=== PATIENT | female | born 1995 | race Caucasian/White ===

== ENCOUNTER 2021-07-27 04:00 | Inpatient (IN) | payer BC, SELFPAY ==
[2021-07-26 22:51] VITALS: TEMP 36.8
[2021-07-26 22:56] VITALS: BP 137/83; PULSE 100
[2021-07-26 23:29] VITALS: BMI 29.4
[2021-07-26 23:42] LABS: Mucous, Urine 0 SEEN /hpf (<or=2+); Red Blood Cells-Urine 0 SEEN /hpf (0-5); Squamous Epithelial Cells - UA 0 SEEN /hpf (5-10)
[2021-07-26] MEDS: Betamethasone/Betamethasone 30 MG/5 ML Vial 12 MG IM (23:43)
[2021-07-26] MEDS: Ringers, Lactated 1,000 ML IV.SOLN. 1000 ML IV (23:43)
[2021-07-26 23:46] LABS: Color, Urine Yellow (Yellow); Glucose, Dipstick Normal (Normal); Ketone-Dipstick 5 mg/dl (Negative); Leukocyte Esterase-Dipstick Negative /ul (Negative); Nitrite-Dipstick Negative (Negative); Occult Blood-Urine Negative /ul (Negative); Protein-Dipstick Negative (Negative); Urine Bilirubin Dipstick Negative (Negative); Urine Clarity Clear (Clear); Urine Urobilinogen Normal (Normal)
[2021-07-26 23:59] LABS: Bacteria 1+ /hpf (None Seen); White Blood Cells 0-5 SEEN /hpf (0-5)
[2021-07-27] VITALS (18 sets, daily range): BP systolic 110–138; BP diastolic 58–89; PULSE 90–126; RESP 14–16; TEMP 36.4–37.1; O2SAT 97–99
[2021-07-27 00:10] LABS: ROM Internal Control Test YES-OK TO RESULT pt. (Internal QC); ROM Patient Test Negative (Negative)
[2021-07-27 01:18] LABS: Group B Strep DNA By PCR Negative (Negative); Internal Control PASS; Probe Check PASS; Specimen Processing Control PASS
--- NOTE | 2021-07-27 05:38 | PCM.HP.OB ---
HPI - General General Date of Admission: 07/27/21 HPI Narrative JOE JIANG, is a 26 F who presents at 34w1d with contractions. Started having pelvic pressure after work and then cramping. Contractions then started upon arrival to hospital. Cervical change and decision for admission. 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 Maternal Data Information CAMMIE Calculator Estimated Delivery Date Method Current WG Current Estimate 09/06/21 Manual 34w 1d PFSH PFSH Medical History (Updated 07/27/21 @ 05:55 by Pao Goss CNM) COVID-19 affecting in second trimester Willa's disease Home Medications levothyroxine [Synthroid] 125 mcg PO DAILY 07/26/21 [History Last Taken 07/26/21] loratadine [Claritin] 10 mg PO DAILY PRN 07/26/21 [History Last Taken 07/25/21] magnesium 250 mg PO DAILY 07/26/21 [History Last Taken 07/25/21] [id number] [] 1 tab PO DAILY 07/26/21 [History Last Taken 07/25/21] Allergy/AdvReac Type Severity Reaction Status Date / Time amoxicillin Allergy Hives Verified 07/26/21 23:00 latex Allergy Hives Verified 07/26/21 23:00 minocycline Allergy Hives Verified 07/26/21 23:00 Surgical History (Updated 07/26/21 @ 23:51 by Rachele Mcrae) [place] teeth removed Social History Smoking Status: Never smoker History Elective abortions Hx Para 0 Spontaneous abortions Hx # Term Pregnancies Ectopic pregnancies Hx # Pregnancies Multiple births # of living children NST FHR Rate Baby A Baseline: 145 Variability:: Moderate Accelerations:: 15 x 15 Decelerations:: None FHR Category:: Category I Uterine Activity:: Every 2-3 moderate ROS Constitutional Constitutional: Reports systems reviewed and no addt'l complaints, except as documented; Denies headache(s) Eyes Eyes: Denies acute decrease in peripheral vision, blurry vision or change in vision ENT HEENT: Reports systems reviewed and no addt'l complaints, except as documented Cardiovascular Cardiovascular: Denies chest pain or dizziness Respiratory/Chest Respiratory/Chest: Denies cough, dyspnea, dyspnea on exertion, shortness of breath at rest or shortness of breath with exertion Gastrointestinal Gastrointestinal: Denies abdominal pain, diarrhea, nausea or vomiting Genitourinary Genitourinary: Denies abdominal discomfort or movement Musculoskeletal Musculoskeletal: Denies limited range of motion Integumentary Integumentary: Reports systems reviewed and no addt'l complaints, except as documented Neurologic Neurologic: Reports systems reviewed and no addt'l complaints, except as documented Psychiatric Psychiatric: Reports systems reviewed and no addt'l complaints, except as documented Endocrine Endocrinology: Reports systems reviewed and no addt'l complaints, except as documented Hematologic/Lymphatic Hematologic/Lymphatic: Reports systems reviewed and no addt'l complaints, except as documented Allergic/Immunologic Allergic/Immunologic: Reports systems reviewed and no addt'l complaints, except as documented Vital Signs Vital Signs Vital Signs: 07/26/21 22:51 07/26/21 22:56 07/27/21 00:03 Temperature 98.3 F 97.6 F L Temperature Source Temporal Temporal Pulse Rate 100 93 Blood Pressure 137/83 H 132/85 H BP Systolic 137 132 BP Diastolic 83 85 Pulse Ox 07/27/21 04:52 Temperature Temperature Source Pulse Rate 120 H Blood Pressure 128/89 H BP Systolic 128 BP Diastolic 89 Pulse Ox 97 Weight Weight: 166 lb 2 oz Body Mass Index (BMI) 29.4 Physical Exam Const alert and oriented x3 General Appearance: cooperative Orientation / Consciousness: awake, oriented to person, oriented to place and oriented to time Exam Limitations: no limitations HEENT normocephalic Head and Scalp: normal to inspection, normocephalic and atraumatic Face and Sinus: normal facial exam Eyes General Eye: normal appearance of both eyes Neck full ROM Chest Chest: symmetrical chest wall rise Resp normal respiratory effort and normal air movement Auscultation: clear to auscultation bilaterally Cardio regular rate, regular rhythm, S1 normal heart sound, S2 normal heart sound, no murmurs, no rub, no gallops and no clicks GI normal to inspection, nondistended, normoactive bowel sounds and non-tender appearance of the vagina normal Bladder / Kidney Exam: no CVA tenderness Manual OB Exam: presentation, dilated 4cm, effaced 80%, station -1 and other Back/Spine normal ROM Extremity normal to inspection and full ROM Skin no rashes or lesions noted Neuro oriented x3, CN's II-XII intact bilaterally and moves all extremities Sensorium / Orientation: awake, alert and oriented to person Motor Exam: clonus absent Deep Tendon Reflexes: Rt Patellar (L4): 2+ and Lt Patellar (L4): 2+ Labs Labs Labs: Blood Type O POSITIVE Antibody Screen NEGATIVE Hct Pending Hgb Pending Group B Strep DNA Negative (Negative) RPR negative HIV negative HBsAG negative Hep C negative O positive GC/CT negative Assessment & Plan (1) Active labor: (2) 34 weeks gestation of : (3) 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 Will treat with Vancomycin 4) Continuous EFM 5) Pain management upon request 6) Celestone 12mg IM x 1 7) collaborative physician and notified of patient status and referral of care due to labor.
--- NOTE | 2021-07-27 05:38 | PCM.RX.CS ---
Consult Pharmacy has been consulted to manage selected antiobiotic: Vancomycin Type of Consult: New start Microbiology: Microbiology 07/27/21 04:50 Nasal Secretion SARS-CoV-2 Antigen (Rapid) - Final Goal Trough: 10-15 mcg/mL Pharmacy Plan for Drug Dosing: Pharmacy Service will continue to monitor and adjust dosing as required. Medications Vancomycin HCl 1,500 mg/ (Sodium Chloride) 530 mls @ 250 mls/hr IV Q8H JANIA Follow-Up Labs: Trough Vancomycin Labs to be done on [date and time ordered]: 07/28 @ 0500
[2021-07-27] MEDS: Lactated Ringers 1,000 ML 50 ML IV (05:55)
[2021-07-27 06:06] LABS: Absolute Lymphocyte Count 2.44 X10^3/uL (0.83-4.51); Absolute Neutrophil Count 11.5 X10^3/uL (2.0-7.7); Basophil# 0.06 X10^3/uL; Basophil% 0.4 % (0-1); Eosinophil# 0.11 X10^3/uL; Eosinophils% 0.7 % (0-5); Hematocrit 34.8 % (37-47); Hemoglobin 11.7 g/dL (12.0-15.0); Lymphocyte # 2.44 X10^3/ul (0.83-4.51); Lymphocyte % 15.7 % (19-41); Mean Corp Hgb Conc 33.6 g/dL (32-36); Mean Corpuscular Hgb 30.7 pg (27.0-32.0); Mean Corpuscular Volume 91.3 fL (81-99); Mean Platelet Vol. 10.9 fl (6.2-12.0); Monocyte# 1.13 X10^3/uL; Monocyte% 7.3 % (0-10); NRBC Flagged by Analyzer 0 % (0-5); Neutrophil # 11.52 X10^3/uL (2.7-7.7); Neutrophil % 73.8 % (47-70); Platelet Count 273 K/mm3 (150-450); RBC Distribution Width SD 43.2 fl (35.1-43.9); Red Blood Count 3.81 M/mm3 (4.2-5.4); White Blood Count 15.6 K/mm3 (4.4-11.0)
[2021-07-27] MEDS: Levothyroxine 125 MCG Tablet PO (06:20)
--- NOTE | 2021-07-27 08:48 | PCM.PN.BLA ---
Progress Note Evaluated at bedside. 9 cm/100/+2. Anticipate normal spontaneous vaginal delivery. Nursery team and pediatrics notified.
[2021-07-27] MEDS: Oxytocin 30 units/NS 500 ml 30 UNITS/500 ML IV.SOLN 334 UNITS IV (09:50)
--- NOTE | 2021-07-27 10:01 | OP.PCM_ITS ---
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: (2) 34 weeks gestation of : (3) Vaginal delivery: (4) delivery: Maternal Data Information CAMMIE Calculator Estimated Delivery Date Method Current WG Current Estimate 09/06/21 Manual 34w 1d Vaginal Delivery Maternal Presentation Maternal Presentation: Active Labor Maternal Presentation: labor 34 weeks Operative Information Date of Procedure: 07/27/21 Pre-Operative Diagnosis: labor Post-Operative Diagnosis: same, live male infant Surgery / Procedure Performed: Spontaneous Vaginal Delivery Type of Anesthesia: None Estimated Blood Loss: 200 Time of Delivery: 09:42 Findings Description of Procedure: Since without epidural or other pain management. Patient progressed to fully dilated. Financial Management Consultant and respiratory were in the room for delivery. Patient with good maternal pushing efforts delivered the infant's head followed by the anterior shoulder with gentle downward traction followed by the rest the 's body. The was placed on the mother's chest initially. The infant was not vigorous at that time so cord was clamped and cut. The infant was then handed to the awaiting nursery and respiratory team. Resuscitation was performed. At this time the placenta delivered spontaneously without complication and intact. Second-degree perineal laceration was appreciated. 1% lidocaine was injected and the laceration was repaired using 2-0 Vicryl and a 3-0 repeat on a single needle. Patient tolerated the procedure well. Presentation: Vertex Amniotic Fluid Description: Clear Placental Delivery Description: Spontaneous Placenta Disposition: [facility] Specimen(s) Removed: placenta Cord Vessel Description: 3 Vessels Cord Entanglement: None Cord Gases: ABG and VBG A Gender: Male (1 minute): 1 (5 minute): 7 ( 10min 8) Delayed Cord Clamping: No Post Vaginal Delivery Medications Given After Delivery: IV Pitocin Episiotomy Description: None Laceration: Perineal Extension/lac and 2nd degree Complication Complications: None
[2021-07-27] MEDS: Acetaminophen 500 MG Tablet 1000 MG PO ×2 (11:16→21:03)
[2021-07-27] MEDS: Ibuprofen 600 MG Tablet PO (16:12)
[2021-07-28] VITALS: BP 119/79; PULSE 96; RESP 16; TEMP 36.8; O2SAT 99
[2021-07-28] MEDS: Ibuprofen 600 MG Tablet PO (00:02)
[2021-07-28 03:54] VITALS: BP 103/78; PULSE 82; RESP 16; TEMP 36.6; O2SAT 97
[2021-07-28] MEDS: Acetaminophen 500 MG Tablet 1000 MG PO (03:54)
--- NOTE | 2021-07-28 05:47 | PN_ITS ---
Subjective Subjective Seen at bedside, doing well. Patient reports good pain control. Mild lochia. Breast-feeding/pumping without difficulty. Voiding without difficulty. Objective Data Objective Data Vital Signs: Vital Signs Temp Pulse Resp BP Pulse Ox 98 F 82 16 103/78 97 07/28/21 03:54 07/28/21 03:54 07/28/21 03:54 07/28/21 03:54 07/28/21 03:54 Oxygen Delivery Method Room Air Weight: 75.353 kg Body Mass Index (BMI) 29.4 Intake & Output: Intake and Output for Last 24 Hours 07/26/21 07/27/21 07/28/21 23:59 23:59 23:59 Intake Total 1225.83 / 1225.83 Output Total 500 / 500 Balance 725.83 / 725.83 Lab / Micro Data Result Diagrams: 07/27/21 00:00 Labs: Laboratory Results - last 24 hr 07/27/21 00:00: WBC 15.6 H, RBC 3.81 L, Hgb 11.7 L, Hct 34.8 L, MCV 91.3, MCH 30.7, MCHC 33.6, RDW Std Deviation 43.2, RDW Coeff of Deborah 13.0, Plt Count 273, MPV 10.9, Immature Gran % (Auto) 2.100 H, Neut % (Auto) 73.8 H, Lymph % (Auto) 15.7 L, [place] % (Auto) 7.3, Eos % (Auto) 0.7, Baso % (Auto) 0.4, Absolute Neuts (auto) 11.5 H, Absolute Lymphs (auto) 2.44, Nucleated RBC % 0 Micro: Microbiology 07/27/21 04:50 Nasal Secretion SARS-CoV-2 Antigen (Rapid) - Final Physical Exam Const alert and oriented x3 General Appearance: cooperative HEENT normocephalic Neck General: normal visual inspection GI soft to palpation and non-distended GI Narrative: Fundus firm Extremity normal to inspection and no calf tenderness Skin no rashes or lesions noted Neuro oriented x3 and CN's II-XII intact bilaterally Psych mental status grossly normal Assessment & Plan Assessment/Plan (1) delivery: PLAN: PPD#1 , Doing well Routine care pain mgmt ambulation
[2021-07-28] MEDS: Levothyroxine 88 MCG Tablet PO (07:37)
[2021-07-28 07:47] VITALS: BP 119/66; PULSE 78; RESP 16; TEMP 36.5; O2SAT 98
[2021-07-28 13:46] VITALS: BP 117/82; PULSE 91; RESP 16; TEMP 36.6; O2SAT 97
--- NOTE | 2021-07-28 17:00 | PCM.DC.SUM ---
Providers Date of Admission: 07/27/21 Primary Care Physician: Dr. Stephanie Lynn MD Reason For Visit: VAGINAL DELIVERY Diagnosis Discharge Diagnosis (1) delivery: Status: Acute Code(s): O60.10X0 - labor with delivery, unspecified trimester, not applicable or unspecified Medications at Discharge Home Medications levothyroxine [Synthroid] 125 mcg PO DAILY 07/26/21 loratadine [Claritin] 10 mg PO DAILY PRN 07/26/21 magnesium 250 mg PO DAILY 07/26/21 [id number] 1 tab PO DAILY 07/26/21 Hospital Course Summary of Care Provided Hospital Course: 26-year-old 1 para 0 who presented at 36+ weeks gestation was labor. She had a vaginal delivery of a 36-week on 07/27/2021. The was placed in special care nursery. By day #1 the patient was ambulating, urinating tolerating regular diet and desired to be released to hotel status. Weight / BMI Weight Weight: 75.353 kg Body Mass Index (BMI) 29.4 ABG / Lab / Microbiology Data Result Diagrams: 07/27/21 00:00 Microbiology: Microbiology 07/27/21 04:50 Nasal Secretion SARS-CoV-2 Antigen (Rapid) - Final D/C Instructions Discharge Diet: No restrictions May resume sexual activity in: 6 weeks Call your doctor if your incision/area has: Continuous Slow Oozing, Sudden Increased Bleeding, Foul Smelling Discharge and Swelling at the incision site Call your doctor if you observe: Fever of 101 or Higher and Inability to urinate Please Follow Up With: Deepika Lin MD When: Follow up with our office in 1-2 and 6 weeks or as needed. [phone] Meaningful Use Info Meaningful Use Diagnoses (Choose all that apply): None applicable Discharge Plan Admission Admit Date/Time: 07/27/21 04:00 Primary Reason for Your Visit: Vaginal delivery Attending Provider: Isa Donahue Primary Care Provider: Stephanie Lynn Discharge Orders/Prescriptions Prescriptions: Continued levothyroxine [Synthroid] 125 mcg Tablet 125 mcg PO DAILY RF: 0 [id number] 1 mg Tablet 1 tab PO DAILY RF: 0 magnesium 250 mg Tablet 250 mg PO DAILY RF: 0 loratadine [Claritin] 10 mg Tablet 10 mg PO DAILY PRN (Reason: allergies) RF: 0 Referrals / Follow Up: Stephanie Lynn MD [Primary Care Provider] - Disposition Disposition (needs filled in before D/C Order can be placed): Home, Self Care
[2021-07-28 17:52] VITALS: BP 112/83; PULSE 98; RESP 16; TEMP 36.6; O2SAT 98
== END 2021-07-28 18:08 | disposition home or self-care (01) | DRG 807 ==
LOC: WPOUT 04:04 → WP 04:04
PROVIDERS: Advanced Practice Midwife; Admitting Provider Obstetrics & Gynecology; PCP Family Medicine; Visit Provider Obstetrics & Gynecology
DX: O60.14X0 Preterm labor third trimester with preterm delivery third trimester, not applicable or unspecified (principal); Z37.0 Single live birth; E06.3 Autoimmune thyroiditis; O99.284 Endocrine, nutritional and metabolic diseases complicating childbirth; O70.1 Second degree perineal laceration during delivery; Z3A.34 34 weeks gestation of pregnancy; Z79.899 Other long term (current) drug therapy; Z86.16 Personal history of COVID-19
CPT/HCPCS: 59025; 59050; 76815; 81001; 84112; 85025; 86850; 86900; 86901; 87081; 87426; 87653; 99218; J7040; J7120; G0378; J0702

== ENCOUNTER 2023-05-09 02:53 | Inpatient (IN) | payer BC, SELFPAY ==
[2023-05-09] VITALS (91 sets, daily range): BP systolic 107–129; BP diastolic 64–84; PULSE 100–140; RESP 16; TEMP 36.4–37.6; O2SAT 93–99; BMI 30.8
--- OUTSIDE RECORDS SUMMARY | 2023-05-09 00:18 | XMS RPT_ITS | CCD ---
Author Name Unknown Address [address] [place] [address] Organization [facility] Care Team Providers [employer] M[employer] Name Role Phone Stephanie Lynn Unavailable Unavailable Unavailable Unavailable Primary Care Provider Unavailabl e Unavailable Primary Care Provider Unavailabl e Unavailable Primary Care Provider Unavailabl e VEERAMACHANENI, RAVALI Referring Unavailab le VEERAMACHANENI, RAVALI Referring Unavailab le VEERAMACHANENI, RAVALI Referring Unavailab le HASAN, AILEEN Referring Unavailable PLOTTS, GLORIA Attending Unavailable PLOTTS, GLORIA Attending Unavailable PLOTTS, GLORIA Attending Unavailable VEERAMACHANENI, RAVALI Referring Unavailab le PLOTTS, GLORIA Referring Unavailable GOSS, ALEJANDRO Attending Unavailable GOSS, ALEJANDRO Attending Unavailable VEERAMACHANENI, RAVALI Referring Unavailab le GOSS, ALEJANDRO Referring Unavailable GOSS, ALEJANDRO Attending Unavailable GOSS, ALEJANDRO Attending Unavailable GOSS, ALEJANDRO Referring Unavailable GOSS, ALEJANDRO Referring Unavailable MINAJOHANNE Attending Unavailable PLOTTS, GLORIA Referring Unavailable PLOTTS, GLORIA Attending Unavailable WISWELL, JOHANNA Referring Unavailable GOSS, ALEJANDRO Referring Unavailable VEERAMACHANENI, RAVALI Attending Unavailab le PLOTTS, GLORIA Referring Unavailable PLOTTS, GLORIA Referring Unavailable WISWELL, JOHANNA Referring Unavailable WISWELL, JOHANNA Referring Unavailable WISWELL, JOHANNA Attending Unavailable WISWELL, JOHANNA Referring Unavailable WISWELL, JOHANNA Attending Unavailable WISWELL, JOHANNA Referring Unavailable Allergies Allergy Classification Reported Allergen(s) Allergy Type Date of Onset Reaction(s) Facility (20 sources) Amoxicillin; Translations: [Amoxicillin CAPS] Drug Allergy 1 [facility] (2 sources) Doxycycline; Translations: [doxycycline] Drug Allergy -[facility] Work Phone: (4 sources) natural latex rubber; Translations: [LATEX] Allergy to substance (finding) 1 [facility] (20 sources) avocado allergenic extract; Translations: [AVOCADO] Drug Allergy 1 [facility] (20 sources) Banana Extract; Translations: [BANANA] Drug Allergy 1 [facility] (20 sources) Latex Drug Allergy 1 [facility] (20 sources) Minocycline; Translations: [MINOCYCLINE] Drug Allergy 1 Hives [facility] (20 sources) Seasonal allergy; Translations: [SEASONAL ALLERGIES] Propensity to adverse reactions 1 Other: See Comments [facility] (20 sources) Pineapple; Translations: [PINEAPPLE] Propensity to adverse reactions to drug 1 [facility] (2 sources) Amoxicillin; Translations: [AMOXICILLIN] Drug Allergy 1 [facility] Medications Current Medications Medication Drug Class(es) Dates Sig (Normalized) Sig (Original) oseltamivir 75 mg oral capsule (3 sources) Neuraminidase Inhibitor Start: 05-08-2023 End: 05-13-2023 take 1 capsule by mouth twice daily oseltamivir (TAMIFLU) 75 mg capsule Take 1 capsule by mouth two times a day for 5 days. 10 capsule 0 05/08/2023 05/13/2023 Active Completed/Discontinued Medications Medication Drug Class(es) Dates Sig (Normalized) Sig (Original) drospirenone, contraceptive, (SLYND) 4 mg (28) tabet (11 sources) Start: 09-04-2021 End: 10-29-2022 take 1 tablet by mouth once daily drospirenone, contraceptive, (SLYND) 4 mg (28) tabet Take 1 tablet by mouth once daily for 28 days. 30 tablet 11 09/04/2021 10/29/2022 Discontinued Problems Active Problems Problem Classification Problem Date Documented Date Episodic/Chronic Contraceptive and procreative management (2 sources) Oral contraception; Translations: [Encounter for surveillance of contraceptive pills] Episodic Genitourinary symptoms and ill-defined conditions (1 source) Female stress incontinence; Translations: [Stress incontinence (female) (male)] Chronic Immunizations and screening for infectious disease (3 sources) Suspected disease caused by 2019-nCoV; Translations: [Contact with or exposure to other viral diseases] Episodic Menstrual disorders (1 source) Break-through bleeding; Translations: [Excessive and frequent menstruation with irregular cycle] Chronic Other complications of (2 sources) Hypothyroidism in ; Translations: [Endocrine, nutritional and metabolic diseases complicating , first trimester] Episodic Other complications of (2 sources) High risk ; Translations: [Supervision of other high risk pregnancies, second trimester] 01-18-2023 Episodic Other complications of (1 source) Short cervical length in ; Translations: [Cervical shortening, second trimester] 01-31-2023 Episodic Other complications of (5 sources) Excessive growth affecting management of mother; Translations: [Maternal care for excessive growth, third trimester, not applicable or unspecified] Onset: 04-02-2023 04-05-2023 Episodic Other complications of (1 source) Uterine size-date discrepancy, third trimester; Translations: [Uterine size date discrepancy, third trimester] Onset: 04-02-2023 Episodic Other complications of (1 source) Supervision of other high risk pregnancies, second trimester; Translations: [Hx of delivery, currently , second trimester] Onset: 02-07-2023 Episodic Other complications of (1 source) Cervical shortening, second trimester; Translations: [Cervical shortening, second trimester] Onset: 01-31-2023 Episodic Other and delivery including normal (20 sources) Normal ; Translations: [Encounter for supervision of normal first , first trimester] Onset: 02-07-2021 02-07-2021 Episodic Other screening for suspected conditions (not mental disorders or infectious disease) (2 sources) Patient encounter status; Translations: [Encounter for other specified screening] Onset: 04-02-2023 01-11-2023 Episodic Other upper respiratory infections (4 sources) Acute sinusitis; Translations: [Acute sinusitis, unspecified] Episodic Residual codes; unclassified (1 source) Gestation period, 28 weeks; Translations: [28 weeks gestation of ] Episodic Residual codes; unclassified (1 source) Gestation period, 30 weeks; Translations: [30 weeks gestation of ] Episodic Residual codes; unclassified (1 source) Gestation period, 32 weeks; Translations: [32 weeks gestation of ] Episodic Residual codes; unclassified (1 source) Gestation period, 12 weeks; Translations: [12 weeks gestation of ] 11-22-2022 Episodic Residual codes; unclassified (1 source) Gestation period, 18 weeks; Translations: [18 weeks gestation of ] 01-03-2023 Episodic Residual codes; unclassified (2 sources) Gestation period, 19 weeks; Translations: [19 weeks gestation of ] 01-11-2023 Episodic Residual codes; unclassified (1 source) Gestation period, 22 weeks; Translations: [22 weeks gestation of ] 01-31-2023 Episodic Residual codes; unclassified (1 source) Gestation period, 23 weeks; Translations: [23 weeks gestation of ] 02-07-2023 Episodic Residual codes; unclassified (1 source) Gestation period, 35 weeks; Translations: [35 weeks gestation of ] 04-30-2023 Episodic Residual codes; unclassified (1 source) 31 weeks gestation of ; Translations: [31 weeks gestation of ] Onset: 04-02-2023 Episodic Residual codes; unclassified (1 source) 23 weeks gestation of ; Translations: [23 weeks gestation of ] Onset: 02-07-2023 Episodic Residual codes; unclassified (1 source) 22 weeks gestation of ; Translations: [22 weeks gestation of ] Onset: 01-31-2023 Episodic Residual codes; unclassified (1 source) Gestation period, 36 weeks; Translations: [36 weeks gestation of ] 05-07-2023 Episodic Thyroid disorders (20 sources) 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; Translations: [Other specified hypothyroidism] Onset: 07-15-2019 06-12-2021 Chronic Viral infection (2 sources) Viral disease; Translations: [Unspecified viral infection] Episodic Past or Other Problems Problem Classification Problem Date Documented Da te Episodic/Chronic Diabetes mellitus without complication (20 sources) Increased glucose level; Translations: [Other abnormal glucose] Onset: 06-14-2021 06-14-2021 Episodic Other complications of (11 sources) Spotting per vagina in ; Translations: [Spotting complicating , unspecified trimester] Onset: 01-26-2021 01-26-2021 Episodic Other complications of (20 sources) Finding of pattern of ; Translations: [Supervision of other high risk pregnancies, unspecified trimester] Onset: 10-04-2022 10-04-2022 Episodic Other female genital disorders (20 sources) H/O: premature delivery; Translations: [Personal history of pre-term labor] Onset: 09-04-2021 Episodic Other female genital disorders (1 source) Personal history of pre-term labor; Translations: [History of delivery] Onset: 01-24-2023 Episodic Residual codes; unclassified (19 sources) Down's child in family; Translations: [Family history of other congenital malformations, deformations and chromosomal abnormalities] Onset: 01-26-2021 01-26-2021 Episodic Residual codes; unclassified (20 sources) FH: Chromosomal anomaly; Translations: [Family history of other congenital malformations, deformations and chromosomal abnormalities] Onset: 01-26-2021 01-26-2021 Episodic Residual codes; unclassified (1 source) 19 weeks gestation of ; Translations: [19 weeks gestation of ] Onset: 01-17-2023 Episodic Residual codes; unclassified (1 source) 16 weeks gestation of ; Translations: [16 weeks gestation of ] Onset: 01-11-2023 Episodic Residual codes; unclassified (1 source) 15 weeks gestation of ; Translations: [15 weeks gestation of ] Onset: 12-14-2022 Episodic Results Test Name Value Interpretation Reference Range Facil ity Vital Signs Date Time Vital Sign Value Performing Clinician Dwayne spann 05-07-2023 14:47-0500 Body weight 79.83 kg Alejandro CARRINGTON Work Phone: [facility] 05-07-2023 14:47-0500 Diastolic blood pressure 72 mm[Hg] Alejandro Goss APRN.CNM Work Phone: [facility] 05-07-2023 14:47-0500 Systolic blood pressure 110 mm[Hg] Alejandro Goss APRN.CNM Work Phone: [facility] 04-30-2023 08:02-0500 Body weight 77.56 kg Johanne Ann MD Work Phone: [facility] 04-30-2023 08:02-0500 Diastolic blood pressure 64 mm[Hg] Johanne Ann MD Work Phone: [facility] 04-30-2023 08:02-0500 Systolic blood pressure 106 mm[Hg] Johanne Ann MD Work Phone: [facility] 01-11-2023 10:57-0400 Body weight 64.41 kg Alejandro Goss [employer] MECH[employer]IC.C NM Work Phone: [facility] 01-11-2023 10:57-0400 Diastolic blood pressure 66 mm[Hg] Alejandro Goss [employer]LECT[employer]OR MECHANIC.CNM Work Phone: [facility] 01-11-2023 10:57-0400 Systolic blood pressure 98 mm[Hg] Alejandro Goss [employer]LECTR[employer] MOTOR MECHANIC.CNM Work Phone: [facility] 11-22-2022 10:02-0400 Body weight 62.6 kg Gloria Sheikh [employer]OR MECH[employer]IC.CNM Work Phone: [facility] 11-22-2022 10:02-0400 Diastolic blood pressure 62 mm[Hg] Gloria Plotts [employer]LECT[employer]IC [employer]OR MECHANIC.CNM Work Phone: [facility] 11-22-2022 10:02-0400 Systolic blood pressure 108 mm[Hg] Gloria Plotts [employer]LECT[employer]OR MECHANIC.CNM Work Phone: [facility] 10-29-2022 13:14-0400 Body height 157.5 cm Johanna Salmon MD Work Phone: [facility] 10-29-2022 13:14-0400 Body weight 63.87 kg Johanna Salmon MD Work Phone: [facility] 10-29-2022 13:14-0400 Diastolic blood pressure 60 mm[Hg] Johanna Salmon MD Work Phone: [facility] 10-29-2022 13:14-0400 Systolic blood pressure 100 mm[Hg] Johanna Salmon MD Work Phone: [facility] 06-07-2022 08:10-0400 Body height 160 cm Lidia Perla i, MD Work Phone: [facility] 06-07-2022 08:10-0400 Body weight 60.33 kg Lidia Perla i, MD Work Phone: [facility] 06-07-2022 08:10-0400 Diastolic blood pressure 72 mm[Hg] Lidia Huerta MD Work Phone: [facility] 06-07-2022 08:10-0400 Heart rate 86 /min Lidia Pelra i, MD Work Phone: [facility] 06-07-2022 08:10-0400 SaO2% (BldA) [Mass fraction] 99 % Lidia Huerta MD Work Phone: [facility] 06-07-2022 08:10-0400 Systolic blood pressure 106 mm[Hg] Lidia Huerta MD Work Phone: [facility] 02-28-2022 10:50-0500 Body height 161.5 cm Alejandro Goss APRN.C NM Work Phone: [facility] 02-28-2022 10:50-0500 Body weight 64.41 kg Alejandro Wolfgang PELAEZN.C NM Work Phone: [facility] 02-28-2022 10:50-0500 Diastolic blood pressure 64 mm[Hg] Alejandro Wolfgang [employer]LECT[employer]OR MECHANIC.CNM Work Phone: [facility] 02-28-2022 10:50-0500 Systolic blood pressure 106 mm[Hg] Alejandro Wolfgang [employer]LECTRIC MOTOR MECHANIC.CNM Work Phone: [facility] 10-20-2021 09:29-0400 Body weight 66.22 kg Alejandro Wolfgang [employer]LECT[employer]OR MECHANIC.C NM Work Phone: [facility] 10-20-2021 09:29-0400 Diastolic blood pressure 78 mm[Hg] Alejandro Wolfgang [employer]LECT[employer]OR MECHANIC.CNM Work Phone: [facility] 10-20-2021 09:29-0400 Systolic blood pressure 120 mm[Hg] Alejandro Wolfgang [employer]LECT[employer] MOTOR MECHANIC.CNM Work Phone: [facility] 09-04-2021 10:52-0400 Body weight 66.22 kg Alejandro Goss [employer]OR MECHANIC.C NM Work Phone: [facility] 09-04-2021 10:52-0400 Diastolic blood pressure 80 mm[Hg] Alejandro Goss [employer]LECTR[employer] MOTOR MECHANIC.CNM Work Phone: [facility] 09-04-2021 10:52-0400 Systolic blood pressure 116 mm[Hg] Alejandro Goss ELECTRIC MOTOR MECHANIC.CNM Work Phone: [facility] 07-12-2021 08:04-0400 Body weight 72.12 kg Alejandro Goss [employer]LECT[employer]OR MECHANIC.C NM Work Phone: [facility] 07-12-2021 08:04-0400 Diastolic blood pressure 82 mm[Hg] Alejandro Goss ELECTR[employer] MOTOR MECHANIC.CNM Work Phone: [facility] 07-12-2021 08:04-0400 Systolic blood pressure 120 mm[Hg] Alejandro Goss [employer]LECT[employer]OR MECHANIC.CNM Work Phone: [facility] 06-28-2021 07:05-0400 Body weight 68.95 kg Alejandro Goss [employer]LECTR[employer] MOTOR MECHANIC.C NM Work Phone: [facility] 06-28-2021 07:05-0400 Diastolic blood pressure 68 mm[Hg] Alejandro Goss [employer]LECT[employer]OR MECHANIC.CNM Work Phone: [facility] 06-28-2021 07:05-0400 Systolic blood pressure 110 mm[Hg] Alejandro Goss ELECTRIC MOTOR MECHANIC.CNM Work Phone: [facility] 06-14-2021 08:00-0400 Body weight 67.59 kg Gloria Plotrayshawn [employer]LECTRIC MOTOR MECHANIC.CNM Work Phone: [facility] 06-14-2021 08:00-0400 Diastolic blood pressure 68 mm[Hg] Gloria Plotts [employer]LECT[employer]OR MECHANIC.CNM Work Phone: [facility] 06-14-2021 08:00-0400 Systolic blood pressure 110 mm[Hg] Gloria Plotts [employer]LECTR[employer] MOTOR MECHANIC.CNM Work Phone: [facility] 03-15-2021 09:32-0500 Body height 157.48 cm Stephanie Lynn Work Phone: [facility] Work Phone: 03-15-2021 09:32-0500 Body mass index (BMI) [Ratio] 21.95 kg/m2 Stephanie Lynn Work Phone: [facility] Work Phone: 03-15-2021 09:32-0500 Body surface area Derived from formula 1.54 m2 Stephanie Lynn Work Phone: [facility] Work Phone: 03-15-2021 09:32-0500 Body temperature 97.8 [degF] Stephanie Lynn Work Phone: [facility] Work Phone: 03-15-2021 09:32-0500 Body weight 54.43 kg Stephanie Lynn Work Phone: [facility] Work Phone: 03-15-2021 09:32-0500 Diastolic blood pressure 85 mm[Hg] Stephanie Lynn Work Phone: [facility] Work Phone: 03-15-2021 09:32-0500 Heart rate 100 /min Stephanie Lynn Work Phone: [facility] Work Phone: 03-15-2021 09:32-0500 Respiratory rate 16 /min Stephanie Lynn Work Phone: [facility] Work Phone: 03-15-2021 09:32-0500 SaO2% (BldA) [Mass fraction] 98 % Stephanie Lynn Work Phone: [facility] Work Phone: 03-15-2021 09:32-0500 Systolic blood pressure 124 mm[Hg] Stephanie Lynn Work Phone: [facility] Work Phone: 03-15-2021 09:32-0500 2 1 Stephanie Lynn Work Phone: [facility] Work Phone: Encounters Encounter Date Encounter Type Care Provider Facility Start: 05-08-2023 Orders Only Isa Delaney MD Work Phone: OB/Gynecology Start: 05-07-2023 End: 05-07-2023 Patient encounter procedure Alejandro Goss [employer] MECHANIC.CNM Work Phone: OB/Gynecology Procedures Date Procedure Procedure Detail Performing Clinician Start: 05-07-2023 URINE OB DIP B/O Clintssic a Wolfgang [employer]OR MECHANIC.CNM Work Phone: Start: 04-30-2023 URINE OB DIP B/O Johanne Ann MD Work Phone: Start: 02-07-2023 Us preg uterus after 1st trimest 1/1st gestation Alejandro Goss ELECT[employer]IC [employer]OR MECHANIC.CNM Work Phone: Start: 01-31-2023 Us preg uterus after 1st trimest /1st gestation Alejandro Goss [employer]LECT[employer]OR MECHANIC.CNM Work Phone: Start: 01-17-2023 Us preg uterus after 1st trimest 1/1st gestation Alejandro Goss ELECT[employer]OR MECHANIC.CNM Work Phone: Start: 01-11-2023 URINE OB DIP B/O Clintssic a Wolfgang [employer]OR MECHANIC.CNM Work Phone: Start: 01-11-2023 Us preg uterus after 1st trimest /1st gestation Gloria Sheikh ELECTR[employer]OR MECHANIC.CNM Work Phone: Start: 01-03-2023 Us preg uterus after 1st trimest 1/1st gestation Johanna Salmon MD Work Phone: Start: 11-22-2022 Antibody screen OLE SHEIKH Plan of Treatment Date Care Activity Detail Author Start: 2035 PAP TESTING PAP TESTING [facility] Start: 03-07-2033 Urine microalbumin profile DTaP,Tdap,Td Vaccine (3 - Td or Tdap) [facility] Start: 06-15-2031 Urine microalbumin profile [facility] Start: 09-30-2025 Pap Testing Pap Testing [facility] Start: 09-30-2025 Screening for malign ant neoplasm of cervix Pap Testing [facility] Start: 10-01-2023 PAP TESTING PAP TESTING [facility] Start: 03-25-2023 Depression Assessment Depression Ass essment [facility] Start: 2023 HPV Testing HPV Testing [facility] Start: 2023 End: 01-31-2024 OBSTETRIC ULTRASOUND WHI OBSTETRIC ULTRASOUND I Anc Imaging Routine History of delivery Expected: 2023, Expires: 01/31/2024 [facility] Work Phone: Immunizations Immunization Date Immunization Notes Care Provider [facility] 03-07-2023 tetanus toxoid, redu kunal diphtheria toxoid, and acellular pertussis vaccine, adsorbed Johanne Ann MD Work Phone: [facility] 06-14-2021 tetanus toxoid, redu kunal diphtheria toxoid, and acellular pertussis vaccine, adsorbed Gloria Sheikh [employer] MECHANIC.CNM Work Phone: [facility] 02-07-2021 influenza, injectabl e, quadrivalent, contains preservative Gloria Sheikh [employer] MECHANIC.CNM Work Phone: [facility] Work Phone: 02-07-2021 influenza virus vaccine, unspecified formulation Johanna Salmon MD Work Phone: [facility] 05-10-2020 COVID-19 vaccine, fu ll dose (MODERNA) Gloria Sheikh ELECT[employer] MECHANIC.CNM Work Phone: [facility] 04-11-2020 COVID-19 vaccine, fu ll dose (MODERNA) Gloria Sheikh ELECT[employer]OR MECHANIC.CNM Work Phone: [facility] Payers Date Payer Category Payer Unknown [id number] 2021 Unknown 2021 Unknown [employer] PPO OOS [id number] 2021-Present [phone] [address] [place] [address] PPO [id number] 2021 Unknown [id number] Social History Date Type Detail Facility Start: 06-07-2022 End: 08-30-2022 Non-smoker Non-smoker [facility] Work Phone: Start: 09-30-2020 End: 02-28-2022 Tobacco smoking status NHIS Never smoked tobacco [facility] Start: 09-30-2020 End: 02-28-2022 Tobacco use and exposure Smokeless tobacco non-user [facility] Start: 06-14-2021 End: 05-07-2023 Alcohol intake Ex-drinker (finding) [facility] Start: 09-30-2020 History SDOH Alcohol Comment occasionally [facility] Start: 01-26-2021 Education 18 [facility] Start: 12-14-2020 [facility] Start: 1995 Sex Assigned At Female [facility] Start: 10-10-2021 End: 10-20-2021 Exposure to SARS-CoV-2 (event) Not sure [facility] Start: 06-07-2022 End: 08-30-2022 Tobacco use panel [facility] National Score (1-10 0), lower number is lower risk 60 [facility] Start: 12-07-2020 Gender identity Identifies as female gender (finding) [facility] Start: 12-07-2020 Sexual orientation Heterosexual (renée trevino) [facility] Goals Date Patient Goal Desired Activity /State Personal health goal Clinical Notes 02-07-2021 to 05-08-2023 Telephone Encounter - Kina Frey RN - 05/08/2023 4:39 PM ESTTelephone Encounter - Isa Mosley MD - 05/08/2023 4:36 PM ESTPatient InstructionsPatient Instructions Note Date & Type Note Facility 05-08-2023 Miscellaneous Notes Patient notified. KINA FREY RN Yes, tamiflu sent in. 36w2d Patient seen in urgent care this morning after taking tympanic temperature of 101.3 at home. No fever in urgent care. Tested positive for influenza A and was told to notify us. Good FM, no dehydration concerns. Symptoms started Saturday. Do you want to order tamiflu? Kina Frey RN documented in this encounter [facility] 05-07-2023 Miscellaneous Notes S: Le Sethi is a 28 year old female who presents at 36w1d with CAMMIE: 06/03/2023, by Last Menstrual Period for a routine visit. Denies headache, visual changes, chest pain, shortness of breath, vaginal bleeding, leakage of fluid, or dysuria. Feeling well, no complaints. O: See flow sheet Gen: No apparent distress Abd: Gravid, nontender TWG 43 lb S=D ASSESSMENT/PLAN: 1. Short interval between pregnancies affecting , antepartum 2. History of delivery, currently 3. 36 weeks gestation of P: 1) PTL precautions reviewed and when to call 2) RTO in one week 3) GBS today 4) EFW 99th percentile. Discussed expectant management vs IOL. Reviewed r/b/a and suspected macrosomia. Discussed evidence, guidelines, and options. At this time interested in IOL but uncertain of timing. Will discuss further next visit. Alejandro Goss APRN.CNM documented in this encounter [facility] 05-07-2023 Instructions Harjit Lundy Cma - 05/07/2023 2:44 PM EST SEQUENTIAL SCREENINGS The [facility] offers sequential screenings for women who are interested in screenings for chromosomal abnormalities and certain defects during a . The sequential screen combines ultrasound and blood tests to determine the risk of chromosomal abnormalities, including Down's Syndrome (Trisomy 21) and Trisomy 18, as well as open neural tube defects including spina bifida. Ultrasound examination is performed between 11 weeks and 13 weeks gestational age. Blood tests are drawn after the ultrasound and again later in the between 15 and 21 weeks gestational age. Please let your physician know if you are interested in this testing. It will require an appointment with our document image technician. This is not an ultrasound performed by a physician in our office during a routine visit. SIGNS AND SYMPTOMS OF LABOR 1. Contractions every 10 minutes or more often 2. Clear, pink, or brownish fluid (water) leaking from vagina 3. Feeling that baby is pushing down, pressure 4. Low, dull backache 5. Cramps that feel like a period 6. Cramps with or without diarrhea If you notice any of the above symptoms, contact our office at [phone] and ask to speak with a nurse. After hours, you can call doctors registry at [phone] OR call [facility] at [phone] and ask to have the doctor print production associate paged. If you consider this an emergency, dial 9-1-1 or go to your nearest emergency department. NEED HELP? Are you dealing with a violent or abusive relationship? Are you a victim of rape or sexual assult? Call [facility] ([place]) 24 hour Crisis Hotline: 262.982.5296 or 410-402-3652. MANUAL Your Guide to a Healthy manual is now on-line. Visit [email or web address] to download your free copy documented in this encounter [facility] 04-30-2023 Miscellaneous Notes KJ - VB No. LOF No. CTXS No. Movement: present. Other c/o: No. Medication list reviewed. Physical Exam See Flow Sheet Gen: no accute distress, well appearing Abd: soft, nontender, gravid A/P 35w1d Estimated Date of Delivery: 06/03/23 Growth US next week Hypothyroid - continue synthroid PTL precautions reviewed, Kick counts reviewed. Johanne Ann MD documented in this encounter [facility] 04-30-2023 Instructions Rina Perry Ma - 04/30/2023 8:02 AM EST SEQUENTIAL SCREENINGS The [facility] offers sequential screenings for women who are interested in screenings for chromosomal abnormalities and certain defects during a . The sequential screen combines ultrasound and blood tests to determine the risk of chromosomal abnormalities, including Down's Syndrome (Trisomy 21) and Trisomy 18, as well as open neural tube defects including spina bifida. Ultrasound examination is performed between 11 weeks and 13 weeks gestational age. Blood tests are drawn after the ultrasound and again later in the between 15 and 21 weeks gestational age. Please let your physician know if you are interested in this testing. It will require an appointment with our document image technician. This is not an ultrasound performed by a physician in our office during a routine visit. SIGNS AND SYMPTOMS OF LABOR 1. Contractions every 10 minutes or more often 2. Clear, pink, or brownish fluid (water) leaking from vagina 3. Feeling that baby is pushing down, pressure 4. Low, dull backache 5. Cramps that feel like a period 6. Cramps with or without diarrhea If you notice any of the above symptoms, contact our office at [phone] and ask to speak with a nurse. After hours, you can call doctors registry at [phone] OR call [facility] at [phone] and ask to have the doctor print production associate paged. If you consider this an emergency, dial -8 or go to your nearest emergency department. NEED HELP? Are you dealing with a violent or abusive relationship? Are you a victim of rape or sexual assult? Call [facility] ([facility] 24 hour Crisis Hotline: 990.908.5139 or 077-143-6724. MANUAL Your Guide to a Healthy manual is now on-line. Visit [email or web address] to download your free copy documented in this encounter [facility] 04-15-2023 Note HNO ID: [id number] Author: ALEJANDRO GOSS APRN.CNM Service: ? Author Type: Aviation Project Engineer Type: Progress Notes Filed: 04/15/2023 16:42 Note Text: NST SUMMARY PROVIDER ASSESSMENT AND INTERPRETATION Le Sethi is a 28 year old female, , who is at 33w0d with an CAMMIE of 06/03/2023, by Last Menstrual Period dating method. Indications for NST: Other: deceleration auscultated via doppler Baseline: 150 Variability: Moderate Accelerations: Present 15 X 15 Decelerations: None Contractions: TOCO: None Interpretation: Reactive SIGNATURE: Alejandro Goss APRN.CNM [facility] 03-07-2023 Note HNO ID: [id number] Author: Harjit Lundy Cma Service: ? Author Type: ? Type: Progress Notes Filed: 03/07/2023 3:23 PM Note Text: Patient identified by name and date of . Le Sethi presents today for a vaccination of Tdap. Patient denies an allergy to latex: yes Patient denies a severe (life-threatening) allergy to a previous dose of Tdap, DTP, DTaP, DT or Td vaccine. Yes Patient denies history of epilepsy or neurological problems: Yes Patient is afebrile and denies being moderately or severely ill: Yes Patient denies history of Guillain-Newberry Syndrome (a severe paralytic illness): Yes Tdap Adacel injection was given without incident. See immunizations for details of immunizations administered today. VIS sheet provided: Yes Provider Gloria Sheikh APRN CNM was present in office at time of injection. Harjit Lundy Cma [facility] 02-06-2023 Miscellaneous Notes Routed to provider for review. documented in this encounter [facility] 2023 Miscellaneous Notes Order signed. Alejandro Goss APRN.CNM Please file for tomorrow's ultrasound. Kina Frey RN documented in this encounter [facility] 01-23-2023 Miscellaneous Notes Order signed. Gloria Sheikh APRN.CNM Patient has appointment for cervical length ultrasound tomorrow. Please file pended order. Mi Carter RN documented in this encounter [facility] 01-16-2023 Miscellaneous Notes Order signed. Alejandro Goss APRN.CNM Patient has cervical length ultrasound tomorrow. Please file pending order. Thank you. Meggan Costa RN documented in this encounter [facility] 01-16-2023 Miscellaneous Notes I called patient because she did not have AFP drawn at visit 01/11. Patient states she forgot and will have it done tomorrow documented in this encounter [facility] 01-11-2023 Miscellaneous Notes ANNETTE-S: Le Sethi is a 27 year old female who presents at 19w4d with CAMMIE:06/03/2023, by Last Menstrual Period for a routine visit. Denies headache, visual changes, chest pain, shortness of breath, vaginal bleeding, leakage of fluid, or dysuria. Feeling well, no complaints. O: See flow sheet Gen: No apparent distress Abd: Gravid, nontender ASSESSMENT/PLAN: 1. 19 weeks gestation of 2. Supervision of other normal , antepartum P: 1) PTL precautions reviewed and when to call 2) RTO in 4 weeks 3) AFP today 4) CL stable, repeat CL in one week. Consulted and does not need vaginal progesterone. 5) Anatomy US today, awaiting formal results. Alejandro Goss APRN.CNM documented in this encounter [facility] 01-11-2023 Instructions Harjit Lundy Cma 01/11/2023 10:57 AM EDT SEQUENTIAL SCREENINGS The [facility] offers sequential screenings for women who are interested in screenings for chromosomal abnormalities and certain defects during a . The sequential screen combines ultrasound and blood tests to determine the risk of chromosomal abnormalities, including Down's Syndrome (Trisomy 21) and Trisomy 18, as well as open neural tube defects including spina bifida. Ultrasound examination is performed between 11 weeks and 13 weeks gestational age. Blood tests are drawn after the ultrasound and again later in the between 15 and 21 weeks gestational age. Please let your physician know if you are interested in this testing. It will require an appointment with our document image technician. This is not an ultrasound performed by a physician in our office during a routine visit. SIGNS AND SYMPTOMS OF LABOR 1. Contractions every 10 minutes or more often 2. Clear, pink, or brownish fluid (water) leaking from vagina 3. Feeling that baby is pushing down, pressure 4. Low, dull backache 5. Cramps that feel like a period 6. Cramps with or without diarrhea If you notice any of the above symptoms, contact our office at [phone] and ask to speak with a nurse. After hours, you can call doctors registry at [phone] OR call [facility] at [phone] and ask to have the doctor print production associate paged. If you consider this an emergency, dial 9--2 or go to your nearest emergency department. NEED HELP? Are you dealing with a violent or abusive relationship? Are you a victim of rape or sexual assult? Call [facility] ([place]) 24 hour Crisis Hotline: 880.276.3791 or 955-660-4876. MANUAL Your Guide to a Healthy manual is now on-line. Visit [email or web address] to download your free copy documented in this encounter [facility] 11-22-2022 Miscellaneous Notes Le Sethi is a 27 year old female who presents at 12w3d for a routine visit. Just completed NT US and having blood work drawn today. Increased heartburn. Just started using TUMS with minimal relief. Denies headache, visual changes, chest pain, shortness of breath, vaginal bleeding, leakage of fluid, or dysuria. Feeling well, no complaints. Size appropriate for dates. 5 lbs TWG. PTL/Bleeding precautions reviewed. RTC in 4 weeks or sooner if needed. Gloria Sheikh APRN.CNM documented in this encounter [facility] 11-22-2022 Miscellaneous Notes Patient declined centering. Harjit Lundy Cma documented in this encounter [facility] 11-22-2022 Instructions Harjit Lundy Cma - 11/22/2022 9:57 AM EDT SEQUENTIAL SCREENINGS The [facility] offers sequential screenings for women who are interested in screenings for chromosomal abnormalities and certain defects during a . The sequential screen combines ultrasound and blood tests to determine the risk of chromosomal abnormalities, including Down's Syndrome (Trisomy 21) and Trisomy 18, as well as open neural tube defects including spina bifida. Ultrasound examination is performed between 11 weeks and 13 weeks gestational age. Blood tests are drawn after the ultrasound and again later in the between 15 and 21 weeks gestational age. Please let your physician know if you are interested in this testing. It will require an appointment with our document image technician. This is not an ultrasound performed by a physician in our office during a routine visit. SIGNS AND SYMPTOMS OF LABOR 1. Contractions every 10 minutes or more often 2. Clear, pink, or brownish fluid (water) leaking from vagina 3. Feeling that baby is pushing down, pressure 4. Low, dull backache 5. Cramps that feel like a period 6. Cramps with or without diarrhea If you notice any of the above symptoms, contact our office at [phone] and ask to speak with a nurse. After hours, you can call doctors registry at [phone] OR call [facility] at [phone] and ask to have the doctor print production associate paged. If you consider this an emergency, dial 9-1-4 or go to your nearest emergency department. NEED HELP? Are you dealing with a violent or abusive relationship? Are you a victim of rape or sexual assult? Call [facility] ([place]) 24 hour Crisis Hotline: 942.962.1510 or 810-366-4797. MANUAL Your Guide to a Healthy manual is now on-line. Visit [email or web address] to download your free copy documented in this encounter [facility] 10-29-2022 Note HNO ID: [id number] Author: Johanna Salmon MD Service: ? Author Type: Physician Type: Progress Notes Filed: 10/30/2022 10:04 PM Note Text: Check Services Clerk offered: Patient declines. INITIAL OB ASSESSMENT OB Provider: Johanna Salmon DO HPI: Le is a 27 year old White Female here to establish Obstetrical Care. Patient's last menstrual period was 08/27/2022. from OB Dating Form. Cycles regular 28 days was planned Complaints: None OB History T0 L1 SAB0 IAB0 Ectopic0 Multiple0 Live Births1 Previous history: Prior : never History of 4th degree laceration: No History of shoulder dystocia: No History of Hypertensive disorders including pre-eclampsia, chronic hypertension or gestational hypertension: No History of gestational diabetes: No Patient's Risk Screening for delivery: MEDICAL/PSYCHOSOCIAL HISTORY: History of hemorrhage or bleeding concerns: No Thyroid Disease: Yes History of chronic hypertension: No History of pre-existing diabetes: No ABO/RH(D) Date Value Ref Range Status 02/22/2021 O POSITIVE Final BMI 25.75 kg/(m2) History of abnormal pap: No Prior treatment for cervical dysplasia: none. 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 I don't have enough money to pay my bills: Never Within the past 12 months, have you worried that your food would run out before you had money to buy more: Never In the past 12 months, has lack of reliable transportation kept you from going to medical appointments or work, or from keeping things needed for daily living: Never In the past 12 months, have you had any concerns about having a place to live, or about the condition or quality of your housing: Never Are there any cultural or spiritual needs we should be aware of: No Depression: denies symptoms of depression. 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 And 1.5 tablet on weekends 102 tablet 3 vit no.124/iron/folic ( VITAMIN ORAL) Take by mouth. TRIAMCINOLONE ACETONIDE TOPICAL Apply 0.025 % to affected area. multivitamin (CLASSIC ) 28 mg iron- 800 mcg tab(s) Take 1 tablet by mouth once daily. With DHA drospirenone, contraceptive, (SLYND) 4 mg (28) tabet Take 1 tablet by mouth once daily for 28 days. 30 tablet 11 MAGNESIUM ORAL Take by mouth. (Patient not taking: Reported on 10/20/2021 ) loratadine (CLARITIN) 10 mg tablet Take 10 mg by mouth once daily. (Patient not taking: Reported on 10/04/2022) No current facility-administered medications for this visit. Allergies As of Date: 10/29/2022 Allergen Noted Reaction AMOXICILLIN 09/30/2020 Hives LATEX 09/30/2020 Rash AVOCADO 09/30/2020 Rash BANANA 09/30/2020 Rash PINEAPPLE 09/30/2020 Rash SEASONAL ALLERGIES 09/30/2020 Other: See Comments MINOCYCLINE 09/30/2020 Hives Fully Assessed 10/29/2022 Does patient have penicillin allergy: Yes, plan for allergy testing. REVIEW OF SYSTEMS: GENERAL: Negative for: Fever or Chills HEENT: Negative for: Headache, Impaired Vision, Ringing in Ears, Nosebleeds NECK: Negative for: Swelling, Pain, Stiffness RESPIRATORY: Negative for: Cough, Shortness of breath, Wheezing GASTROINTESTINAL: Negative for: Heartburn, Constipation, Diarrhea, Blood in stool, Vomiting MUSCULOSKELETAL: Negative for: Muscle or joint pain, stiffness, Joint swelling NEUROLOGIC/PSYCHIATRIC: Negative for: Weakness, Paralysis, Numbness, Tingling, Tremor, Anxiety, Depression, Memory loss SKIN: Negative for: Rash, Itching GENITOURINARY: Nega (more content not included)... [facility] 10-29-2022 History of Presen t illness Narrative Check Services Clerk offered: Patient declines. INITIAL OB ASSESSMENT OB Provider: Johanna Salmon DO HPI: Le is a 27 year old White Female here to establish Obstetrical Care. Patient's last menstrual period was 08/27/2022. from OB Dating Form. Cycles regular 28 days was planned Complaints: None OB History T0 L1 SAB0 IAB0 Ectopic0 Multiple0 Live Births1 Previous history: Prior : never History of 4th degree laceration: No History of shoulder dystocia: No History of Hypertensive disorders including pre-eclampsia, chronic hypertension or gestational hypertension: No History of gestational diabetes: No Patient's Risk Screening for delivery: MEDICAL/PSYCHOSOCIAL HISTORY: History of hemorrhage or bleeding concerns: No Thyroid Disease: Yes History of chronic hypertension: No History of pre-existing diabetes: No ABO/RH(D) Date Value Ref Range Status 02/22/2021 O POSITIVE Final BMI 25.75 kg/(m^2) History of abnormal pap: No Prior treatment for cervical dysplasia: none. 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 I don't have enough money to pay my bills: Never Within the past 12 months, have you worried that your food would run out before you had money to buy more: Never In the past 12 months, has lack of reliable transportation kept you from going to medical appointments or work, or from keeping things needed for daily living: Never In the past 12 months, have you had any concerns about having a place to live, or about the condition or quality of your housing: Never Are there any cultural or spiritual needs we should be aware of: No Depression: denies symptoms of depression. 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 And 1.5 tablet on weekends 102 tablet 3 vit no.124/iron/folic ( VITAMIN ORAL) Take by mouth. TRIAMCINOLONE ACETONIDE TOPICAL Apply 0.025 % to affected area. multivitamin (CLASSIC ) 28 mg iron- 800 mcg tab(s) Take 1 tablet by mouth once daily. With DHA drospirenone, contraceptive, (SLYND) 4 mg (28) tabet Take 1 tablet by mouth once daily for 28 days. 30 tablet 11 MAGNESIUM ORAL Take by mouth. (Patient not taking: Reported on 10/20/2021 ) loratadine (CLARITIN) 10 mg tablet Take 10 mg by mouth once daily. (Patient not taking: Reported on 10/04/2022) No current facility-administered medications for this visit. Allergies As of Date: 10/29/2022 Allergen Noted Reaction AMOXICILLIN 09/30/2020 Hives LATEX 09/30/2020 Rash AVOCADO 09/30/2020 Rash BANANA 09/30/2020 Rash PINEAPPLE 09/30/2020 Rash SEASONAL ALLERGIES 09/30/2020 Other: See Comments MINOCYCLINE 09/30/2020 Hives Fully Assessed 10/29/2022 Does patient have penicillin allergy: Yes, plan for allergy testing. REVIEW OF SYSTEMS: GENERAL: Negative for: Fever or Chills HEENT: Negative for: Headache, Impaired Vision, Ringing in Ears, Nosebleeds NECK: Negative for: Swelling, Pain, Stiffness RESPIRATORY: Negative for: Cough, Shortness of breath, Wheezing GASTROINTESTINAL: Negative for: Heartburn, Constipation, Diarrhea, Blood in stool, Vomiting MUSCULOSKELETAL: Negative for: Muscle or joint pain, stiffness, Joint swelling NEUROLOGIC/PSYCHIATRIC: Negative for: Weakness, Paralysis, Numbness, Tingling, Tremor, Anxiety, Depression, Memory loss SKIN: Negative for: Rash, Itching GENITOURINARY: Negative for: vaginal itching, vaginal discharge, hematuria or dysuria PHYSICAL EXAM: BP 100/60 Ht 5' 2 (1.58m) Wt 140 lb 12.8 oz (63.9kg) LMP 08/27/2022 BMI 25.75 kg/(m^2). GENERAL: pleasant in no apparent distress DERMATOLOGY: Normal, without lesions, non-icteric, and non-hirsute NECK: full range of motion CHEST: Normal inspiratory effort BREAST: soft, non-tender, symmetric, no dominant mass, normal nipple-areolar complex, no lymphadenopathy, and no nipple discharge ABDOMEN: soft, non-tender, and no masses NEURO: exam grossly non-focal PELVIS: External genitalia normal without lesions. Perineal body intact. No vaginal or cervical lesions. Cervix closed. Uterus 9 week size. No adnexal masses or tenderness. Clinical Pelvimetry: Pelvimetry clinically assessed as adequate Limited OB ultrasound exam: single intrauterine and positive cardiac activity OB Risk Screening: Completed, positive findings include: Patient answered 'Yes' to Partner with Herpes Patient answered 'Yes' they had a prior hairston between 20w and 36w6d. ASSESSMENT: 27 year old at 9w0d wks gestational age PLAN: 1) Patient oriented to practice. Discussed nutrition, folic acid supplementation, dietary guidelines, exercise, smoking, alcohol, caffeine, and drug use. Discussed gestational weight gain guidelines. Discussed routine OB labs including STD/HIV. Discussed how to access Your guide to a health and the [place]. Discussed aneuploidy and carrier screening. Regarding aneuploidy screening, nuchal translucency/first trimester early anatomy ultrasound and NIPT were discussed. Regarding carrier screening, the myriad screen was discussed. The risks/benefits and limitations of NIPT/aneuploidy screening were reviewed including the potential for false negative and false positive results. We discussed the availability of professional-society guided carrier screening and reviewed the conditions screened and limitations of screening. The availability of genetic counseling was reviewed. Information on aneuploidy/carrier screening was provided. The patient chooses: Aneuploidy screening: chooses to proceed with First trimester early anatomy ultrasound (12-13w6d), NIPT (10 weeks), and If concerns with insurance coverage, patient to call back for sequential order. and Carrier screening: undecided and information given Discussed risk of . Discussed risk of accelerated growth. See problem list. Follow up in 4 weeks or sooner bereketn. Johanna Salmon DO documented in this encounter [facility] 10-29-2022 Instructions Melvi Adams MA - 10/29/2022 1:05 PM EDT Please select the following link to access the [facility] Your Guide to a Healthy . [email or web address] documented in this encounter [facility] 10-04-2022 Note HNO ID: [id number] Author: Meenakshi Murray RN Service: ? Author Type: ? Type: Progress Notes Filed: 10/04/2022 5:17 PM Note Text: # 1 - Date: 07/27/21, Sex: Male, Weight: 6 lb 12 oz (3.062 kg), GA: 34w1d, Delivery: Vaginal, Spontaneous, Apgar1: 1, Apgar5: 7, Living: Living, Comments: spontaneous labor, EBL 200mL # 2 - Date: None, Sex: None, Weight: None, GA: None, Delivery: None, Apgar1: None, Apgar5: None, Living: None, Comments: None [facility] 10-04-2022 History of Presen t illness Narrative # 1 - Date: 07/27/21, Sex: Male, Weight: 6 lb 12 oz (3.062 kg), GA: 34w1d, Delivery: Vaginal, Spontaneous, Apgar1: 1, Apgar5: 7, Living: Living, Comments: spontaneous labor, EBL 200mL # 2 - Date: None, Sex: None, Weight: None, GA: None, Delivery: None, Apgar1: None, Apgar5: None, Living: None, Comments: None documented in this encounter [facility] 10-04-2022 Miscellaneous Notes DISTANCE HEALTH VISIT This Team Access Model visit is a phone encounter. It required patient-provider interaction for the medical decision making as documented below. Le Sethi is a 27 year old female seen for PNOB visit. Patient was diagnosed with Willa's at age 17. Her last visit in endocrinology was June 07, [address] Huerta[address] [facility]. Her last thyroid ultrasound was done August 30, 2022. Her last TSH was done August 30 and October 14, 2022 last T4 6 August 30. Patient delivered her previous child on July 27, 2021. This is a planned . Patient has a history of delivery at 34 weeks 1 day. Baby weighed 6 pounds 4 ounces. Father the baby's first cousin born with Down syndrome and heart defect. at age 3 months. Patient considering aneuploidy screening. Contact information for integrated genetics given to patient to check on insurance coverage. Patient considering genetic carrier screening testing. Contact information for labs given to patient to check on insurance coverage.Meenakshi Murray RN documented in this encounter [facility] 09-26-2022 Miscellaneous Notes Called pt to update that a TSH is ordered for her to obtain. No answer, the mailbox is full and cannot receive messages at this time. Sent pt the following [employer] message: Avelino Lujan. Per your Endocrine provider, it is very reassuring that your last thyroid function test was normal. She would like for you to get a TSH level drawn. The order is in and is nonfasting. If you have any questions, please call us at or send us a [employer] message. Thanks, Have a Great Day, Meggan Luna RN Reviewed Its very assuring that her last thyroid function test were normal My suggestion is to update a TSH level at this time I signed the order Aileen Dick MD Please review and advise. TERRY: 06/07/2022 Pt called to say she is . Called pt and she is four weeks . Pt had thyroid labs drawn on 08/30/2022: Component Latest Ref Rng & Units 08/30/2022 TSH 0.270 - 4.200 mIU/L 1.140 Free T4 0.9 - 1.7 ng/dL 1.6 Pt currently taking: Levothyroxine 88 mcg tablet- Take 1 tablet by mouth once daily. Pended thyroid labs for September and October below, Please advise Patient called to tell Dr. Nuñez that she is . During her last Dr. Nuñez changed her medication. She can be reached at [phone]. Claudia Palma PSS documented in this encounter [facility] 06-07-2022 Note HNO ID: [id number] Author: Lidia Huerta MD Service: ? Author Type: Physician Type: Progress Notes Filed: 06/07/2022 8:31 AM Note Text: Endocrinology and Metabolism [place] FOLLOW UP VISIT Last visit: 06/08/2021 Chief Complaint: follow-up, hypothyroidisim History of Present Illness: Le Sethi is a 27 year old female with PMHx of Willa's hypothyroidism presenting for follow-up. Previously seen by Dr. Palacios. Currently taking levothyroxine 88mcg - one tablet Mon to Sat and two tablets on Sun. During , she was taking 125mcg daily. Fhx is significant for thyroid cancer in her father, states it was stage 4, she does not know which kind. Energy levels vary due to having a 10-month old baby Sleeps is disturbed Weight is stable.Yes difficulties swallowing or breathing.No pain or tenderness from thyroid bed.No heart palpitations.No temperature intolerance.No excessive sweatingNo constipation or diarrhea.No Menstrual period - regular and normal Patient's last menstrual period was 05/29/2022 (exact date). 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 PAST SURGICAL HISTORY Procedure Laterality Date TOOTH EXTRACTION wisdom teeth FAMILY HISTORY Problem Relation Age of Onset other (endometrioma) Mother 2011 Hypothyroidism Mother Thyroid Cancer Father 2011; in remission No Known Problems Brother No Known Problems Brother Hypertension Maternal Grandmother Heart Maternal Grandmother Melanoma Maternal Grandfather Stroke Maternal Grandfather other (adenocarcinoma) Paternal Grandmother Heart Attack Paternal Grandfather Dementia Paternal Grandfather Social History Tobacco Use Smoking status: Never Smokeless tobacco: Never Vaping Use Vaping Use: Never used Substance Use Topics Alcohol use: Not Currently Comment: occasionally Drug use: Never Current Outpatient Medications Medication Sig loratadine (CLARITIN) 10 mg tablet Take 10 mg by mouth once daily. TRIAMCINOLONE ACETONIDE TOPICAL Apply 0.025 % to affected area. SYNTHROID 88 mcg tablet TAKE 1 TABLET BY MOUTH DAILY SATURDAY THROUGH SATURDAY AND 2 TABLETS ON SATURDAY drospirenone, contraceptive, (SLYND) 4 mg (28) tabet Take 1 tablet by mouth once daily for 28 days. MAGNESIUM ORAL Take by mouth. (Patient not taking: Reported on 10/20/2021 ) vit no.124/iron/folic ( VITAMIN ORAL) Take by mouth. (Patient not taking: Reported on 06/07/2022) No current facility-administered medications for this visit. ALLERGIES Allergen Reactions Amoxicillin Hives As a child Latex Rash Pretty significant latex allergy per patient Avocado Rash LATEX ALLERGY Banana Rash LATEX ALLERGY Pineapple Rash LATEX ALLERGY Seasonal Allergies Other: See Comments Seasonal allergies Minocycline Hives Large hives/uncomfortable REVIEW OF SYSTEMS: Review of Systems All other systems reviewed and are negative. PHYSICAL EXAM: BP 106/72 Pulse 86 Ht 160 cm (5' 3 ) Wt 60.3 kg (133 lb) LMP 05/29/2022 (Exact Date) SpO2 99% No BMI 23.56 kg/m? Wt: 64.4 kg (142 lb) BMI: 24.68 kg/(m2) General appearance: well developed, no acute distress Eyes: No lid lag, no stare Thyroid: normal sized gland, no palpable nodules Heart: S1, S2 normal, no murmurs Lungs: CTABL LABS: TSH Date Value 09/04/2021 0.282 mIU/L 07/25/2021 0.843 mIU/L 04/15/2021 2.890 uU/mL 12/10/2020 3.070 uU/mL ASSESSMENT : Le Sethi is a 27 year old female with PMHx of Willa's hypothyroidism and Fhx significant for thyroid cancer in her father. Today, she is clinically and biochemically euthyroid. Currently, she takes levothyroxine 88mcg - one tablet Mon to Sat and two tablets on Sun. PLAN: - Check TSH and free T4, adjust levothyroxine dose as needed. Rx renewed today. - Re-iterated on its appropriate intake (early AM, on empty stomach and by itself with water, wait 30-60 minutes before eating/drinking and instructed to take Ca/iron pills/MVI atleast 4 hrs after Synthroid) - Advised patient to inform me as soon as she learns she is again, she may start trying later this year. Will increase dose to 125mcg daily when she is - Check ultrasound thyroid given Fhx of thyroid cancer Follow up: 6 months Lidia Huerta MD [facility] Endocrinology and Metabolism [place] [facility] [phone] Medical Decision Making: Problems: Low: Stable chronic illness Data: Unique source(s) for external note(s) reviewed: 2 Unique test result(s) reviewed: 3+ Unique test(s) ordered: 3+ Risk: Moderate: Drug management (more content not included)... [facility] 06-07-2022 History of Presen t illness Narrative Endocrinology and Metabolism [place] FOLLOW UP VISIT Last visit: 06/08/2021 Chief Complaint: follow-up, hypothyroidisim History of Present Illness: Le Sethi is a 27 year old female with PMHx of Willa's hypothyroidism presenting for follow-up. Previously seen by Dr. Palacios. Currently taking levothyroxine 88mcg - one tablet Mon to Sat and two tablets on Sun. During , she was taking 125mcg daily. Fhx is significant for thyroid cancer in her father, states it was stage 4, she does not know which kind. Energy levels vary due to having a 10-month old baby Sleeps is disturbed Weight is stable.Yes difficulties swallowing or breathing.No pain or tenderness from thyroid bed.No heart palpitations.No temperature intolerance.No excessive sweatingNo constipation or diarrhea.No Menstrual period - regular and normal Patient's last menstrual period was 05/29/2022 (exact date). 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 PAST SURGICAL HISTORY Procedure Laterality Date TOOTH EXTRACTION wisdom teeth FAMILY HISTORY Problem Relation Age of Onset other (endometrioma) Mother 2011 Hypothyroidism Mother Thyroid Cancer Father 2011; in remission No Known Problems Brother No Known Problems Brother Hypertension Maternal Grandmother Heart Maternal Grandmother Melanoma Maternal Grandfather Stroke Maternal Grandfather other (adenocarcinoma) Paternal Grandmother Heart Attack Paternal Grandfather Dementia Paternal Grandfather Social History Tobacco Use Smoking status: Never Smokeless tobacco: Never Vaping Use Vaping Use: Never used Substance Use Topics Alcohol use: Not Currently Comment: occasionally Drug use: Never Current Outpatient Medications Medication Sig loratadine (CLARITIN) 10 mg tablet Take 10 mg by mouth once daily. TRIAMCINOLONE ACETONIDE TOPICAL Apply 0.025 % to affected area. SYNTHROID 88 mcg tablet TAKE 1 TABLET BY MOUTH DAILY SATURDAY THROUGH SATURDAY AND 2 TABLETS ON SATURDAY drospirenone, contraceptive, (SLYND) 4 mg (28) tabet Take 1 tablet by mouth once daily for 28 days. MAGNESIUM ORAL Take by mouth. (Patient not taking: Reported on 10/20/2021 ) vit no.124/iron/folic ( VITAMIN ORAL) Take by mouth. (Patient not taking: Reported on 06/07/2022) No current facility-administered medications for this visit. ALLERGIES Allergen Reactions Amoxicillin Hives As a child Latex Rash Pretty significant latex allergy per patient Avocado Rash LATEX ALLERGY Banana Rash LATEX ALLERGY Pineapple Rash LATEX ALLERGY Seasonal Allergies Other: See Comments Seasonal allergies Minocycline Hives Large hives/uncomfortable REVIEW OF SYSTEMS: Review of Systems All other systems reviewed and are negative. PHYSICAL EXAM: BP 106/72 Pulse 86 Ht 160 cm (5' 3 ) Wt 60.3 kg (133 lb) LMP 05/29/2022 (Exact Date) SpO2 99% No BMI 23.56 kg/m Wt: 64.4 kg (142 lb) BMI: 24.68 kg/(m^2) General appearance: well developed, no acute distress Eyes: No lid lag, no stare Thyroid: normal sized gland, no palpable nodules Heart: S1, S2 normal, no murmurs Lungs: CTABL LABS: TSH Date Value 09/04/2021 0.282 mIU/L 07/25/2021 0.843 mIU/L 04/15/2021 2.890 uU/mL 12/10/2020 3.070 uU/mL ASSESSMENT : Le Sethi is a 27 year old female with PMHx of Willa's hypothyroidism and Fhx significant for thyroid cancer in her father. Today, she is clinically and biochemically euthyroid. Currently, she takes levothyroxine 88mcg - one tablet Mon to Sat and two tablets on Sun. PLAN: - Check TSH and free T4, adjust levothyroxine dose as needed. Rx renewed today. - Re-iterated on its appropriate intake (early AM, on empty stomach and by itself with water, wait 30-60 minutes before eating/drinking and instructed to take Ca/iron pills/MVI atleast 4 hrs after Synthroid) - Advised patient to inform me as soon as she learns she is again, she may start trying later this year. Will increase dose to 125mcg daily when she is - Check ultrasound thyroid given Fhx of thyroid cancer Follow up: 6 months Lidia Huerta MD [facility] Endocrinology and Metabolism [place] [facility] [phone] Medical Decision Making: Problems: Low: Stable chronic illness Data: Unique source(s) for external note(s) reviewed: 2 Unique test result(s) reviewed: 3+ Unique test(s) ordered: 3+ Risk: Moderate: Drug management Medical Decision Making Level: 4 - Moderate documented in this encounter [facility] 03-07-2022 Miscellaneous Notes Last seen by 06/08/21 Next appointment with MD pulliam appt made [facility] 09/04/21 Date last rx given 07/31/[address] Palacios documented in this encounter [facility] 02-28-2022 History of Presen t illness Narrative Check Services Clerk offered: Patient declines. Le is a 27 year old who presents for an annual gynecologic exam with complaints, irregular bleeding. Using Slynd for OCP 5 month month PP got menses 10th day of pill pack and then again menses 10th day of pill pack and not has not stopped spotting. Started taking at 6 weeks PP. No bleeding till 5th month. Stopped the last 2.5 weeks. No new medications. Contraception: Progestin - only contraceptives HPV vaccine: Yes Last Pap: 10/07/2020 normal HPV: N/A History of abnormal pap: No Last mammogram: never Sexually active: Yes Time with current partner: 2.5 years Pain with intercourse: No Postcoital bleeding: No Exercise: Intermittently throughout the weekly. 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 PAST SURGICAL HISTORY Procedure Laterality Date TOOTH EXTRACTION wisdom teeth FAMILY HISTORY Problem Relation Age of Onset other (endometrioma) Mother 2011 Hypothyroidism Mother Thyroid Cancer Father 2011; in remission No Known Problems Brother No Known Problems Brother Hypertension Maternal Grandmother Heart Maternal Grandmother Melanoma Maternal Grandfather Stroke Maternal Grandfather other (adenocarcinoma) Paternal Grandmother Heart Attack Paternal Grandfather Dementia Paternal Grandfather SOCIAL HISTORY Social History Tobacco Use Smoking status: Never Smokeless tobacco: Never Vaping Use Vaping Use: Never used Substance Use Topics Alcohol use: Not Currently Comment: occasionally Drug use: Never REVIEW OF SYSTEMS Abdomen: No abdominal pain, nausea, vomiting, diarrhea, or constipation. No bloating, early satiety, indigestion, or increased flatulence. Bladder: No dysuria, gross hematuria, urinary frequency, urinary urgency, or incontinence. Breast: No breast lumps, nipple d/c, overlying skin changes, redness or skin retraction. Allergies and current medication updated:Yes EXAM: BP 106/64 Ht 5' 3.6 (1.62m) Wt 142 lb (64.4kg) LMP 02/14/2022 BMI 24.70 kg/(m^2). GENERAL: pleasant, female in no apparent distress HEENT: Normocephalic, atraumatic, mucus membranes moist, and no lesions NECK: Supple, full range of motion, no adenopathy, and thyroid normal DERMATOLOGY: Normal, without lesions, non-icteric, and non-hirsute BREAST: soft, non-tender, symmetric, no dominant mass, normal nipple-areolar complex, no lymphadenopathy, and no nipple discharge CHEST: Normal inspiratory effort ABDOMEN: soft, non-tender, and no masses PELVIC: external genitalia normal, normal Bartholin's glands, urethra, [place]'s glands, no vulvar lesions, no cervical lesions, good vaginal support, physiologic discharge present, normal appearing perineal body and perianal region BIMANUAL: uterus normal size, shape and consistency, no adnexal masses, and non-tender RECTOVAGINAL: deferred. NEURO: alert and oriented x3,exam grossly non-focal EXTREMITIES: normal ASSESSMENT/PLAN: 1. Encounter for gynecological examination (general) (routine) with abnormal findings - ICD9: V72.31, ICD10: Z01.411 (primary diagnosis) - Completed pelvic and breast exam - Encouraged monthly BSE - Follow up for annual exam in one year. 2. Encounter for surveillance of contraceptive pills - ICD9: V25.41, ICD10: Z30.41 - discussed with patient on how to take OCP's. - counseled on benefits, risks and possible severe side effects of OCP's. - discussed need to use Condoms to help to prevent STD's including HIV etc. 3. Breakthrough bleeding on control pills - ICD9: 626.6, ICD10: N92.1 -Discussed could be do to recent weaning of . Could continue for another 2 months and see if resolves or switch to micronor. Would like to avoid estrogen as potentially this was causing elevated bp in the past. Would like to stay on Slynd at this time and will call if bleeding continues or would like to switch. Would like to get after son is one year old. 1) Health maintenance: Pap/HPV up to date. Nutrition, exercise and routine health maintenance exams reviewed. Calcium/Vitamin D supplementation information provided. Lipids/glucose: followed by PCP Vitamin D: followed by PCP HPV vaccine: completed series 2) Contraception: Progestin - only contraceptives. Contraceptive options reviewed and information provided. 3) STD screening: Declined STD check. 4) Follow up one year or sooner as needed Alejandro Goss APRN.CNM documented in this encounter [facility] 01-01-2022 Miscellaneous Notes Patient notified. Meggan Costa RN This can happen when taking Slynd. If patient is still breast-feeding it also can decrease menstrual cycles. As long as she is taking this consistently it is okay to not have her period. Please let me know if she has any further questions or concerns. Alejandro Goss APRN.CNM Patient calling with concerns of not having a period or any spotting on her OCP Slynd. Patient had a baby in July. Was told at last visit on 10/20 to call into office if she still hadn't had any period on her OCP. Mi Carter RN documented in this encounter [facility] 10-20-2021 Instructions Alejandro Goss APRN.CNM - 10/20/2021 9:45 AM EDT Marita, perifit or search pelvic floor service dog trainer online. If no improvement can evaluate further. TIPS ON PRACTICING PELVIC FLOOR (KEGEL) EXERCISES How to identify the correct muscle? 1. To find the correct muscle, place your finger inside your vagina or rectum. Try to squeeze around your finger. That is the muscle you want to exercise! This muscle is the same one that you use to hold back gas or a bowel movement. 2. Remember!! Never use your stomach, legs, or buttock muscles. The most common mistake is using too many muscles. To find out if you are also chente your stomach muscles, place your hand on your abdomen while you squeeze your pelvic floor muscle. If you feel your abdomen move, then you are also moving these muscles. 3. These exercises can be practiced anytime, in any place. Since this muscle is internal, no one can see you exercising this muscle. How do I perform the exercise? 1. Squeeze the muscle which you identified earlier. Squeeze and hold for 10 seconds, then relax for 10 second period. IT IS JUST IMPORTANT TO RELAX IT IS TO CONTRACT THIS MUSCLE! 2. Perform 15 exercises in the morning, 15 in the afternoon, 20 at night. You can also do them for 10 minutes, 3 times a day. Try to work up to doing 25 exercises at one time. When you first begin to exercise these muscles, your muscle may tire easily and you may not be able to contract and squeeze of 10 seconds. However, slowly over a 2 week period, you will build to 10 second contractions. When will I notice a change? In approximately 2 weeks of consistent daily exercises, you will notice less accidents (incontinence and leakage). In one month, you will see an even bigger difference. Can these exercises harm me? No! These exercises cannot harm you in any way. Most patients find them relaxing and easy. If you get back or stomach pain after you exercise, then you are rare probably trying too hard and using stomach and/or back muscles. Go back and find the muscle and remember this exercise should feel mild and easy. Remember to focus on relaxation, as well as contraction of the muscle. In the time, you will learn to practice effortlessly. Eventually, work these exercises in as part of your lifestyle, like brushing your teeth or eating a meal. This will help you to remain successful for a lifetime! If you have any other questions or concerns, please do not hesitate to call. documented in this encounter [facility] 10-20-2021 History of Presen t illness Narrative Le Gracia is a 26 year old female who presents for problem visit follow up OCP. HPI: Taking Slynd, no concerns. . No menses since starting, very light spotting today. Taking at same time, no missed pills. All BP normal. Having bladder leakage at times, drops of urine coming out periodically. Underwear smell like urine. 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 PAST SURGICAL HISTORY Procedure Laterality Date TOOTH EXTRACTION wisdom teeth FAMILY HISTORY Problem Relation Age of Onset other (endometrioma) Mother 2011 Hypothyroidism Mother Thyroid Cancer Father 2011; in remission No Known Problems Brother No Known Problems Brother Hypertension Maternal Grandmother Heart Maternal Grandmother Melanoma Maternal Grandfather Stroke Maternal Grandfather other (adenocarcinoma) Paternal Grandmother Heart Attack Paternal Grandfather Dementia Paternal Grandfather Social History Tobacco Use Smoking status: Never Smoker Smokeless tobacco: Never Used Vaping Use Vaping Use: Never used Substance Use Topics Alcohol use: Not Currently Comment: occasionally Drug use: Never Current Outpatient Medications Medication Sig levothyroxine (SYNTHROID) 88 mcg tablet 1 tablet daily Saturday through Saturday and 2 tablets on Sundays loratadine (CLARITIN) 10 mg tablet Take 10 mg by mouth once daily. vit no.124/iron/folic ( VITAMIN ORAL) Take by mouth. TRIAMCINOLONE ACETONIDE TOPICAL Apply 0.025 % to affected area. drospirenone, contraceptive, (SLYND) 4 mg (28) tabet Take 1 tablet by mouth once daily for 28 days. MAGNESIUM ORAL Take by mouth. (Patient not taking: Reported on 10/20/2021 ) No current facility-administered medications for this visit. Allergies As of Date: 10/20/2021 Allergen Noted Reaction AMOXICILLIN 09/30/2020 Hives LATEX 09/30/2020 Rash AVOCADO 09/30/2020 Rash BANANA 09/30/2020 Rash PINEAPPLE 09/30/2020 Rash SEASONAL ALLERGIES 09/30/2020 Other: See Comments MINOCYCLINE 09/30/2020 Hives Fully Assessed 10/20/2021 REVIEW OF SYSTEMS Abdomen: No bloating, early satiety, indigestion, or increased flatulence. No abdominal pain, nausea, vomiting, diarrhea, or constipation. Bladder: No dysuria, gross hematuria, urinary frequency, urinary urgency, or incontinence. Breast: No breast lumps, nipple d/c, overlying skin changes, redness or skin retraction. Expanded ROS: N/A Allergies and current medication updated:Yes EXAM: BP 120/78 Wt 146 lb (66.2kg) LMP 10/18/2021 Blood Pressure 95-115/73-87. Only one 120/80. GENERAL: pleasant, female in no apparent distress HEENT: Normocephalic and atraumatic NECK: Supple and full range of motion DERMATOLOGY: Normal and without lesions CHEST: Normal inspiratory effort ABDOMEN: soft, non-tender and no masses NEURO: alert and oriented x3,exam grossly non-focal EXTREMITIES: normal ASSESSMENT AND PLAN: 1. Encounter for surveillance of contraceptive pills - ICD9: V25.41, ICD10: Z30.41 (primary diagnosis) - discussed with patient on how to take OCP's. - counseled on benefits, risks and possible severe side effects of OCP's. - discussed need to use Condoms to help to prevent STD's including HIV etc. -All blood pressures have been normal and no further concerns 2. Urinary, incontinence, stress female - ICD9: 625.6, ICD10: N39.3 -Reviewed Kegel's exercises as well as purchasing device for pelvic strengthening. Discussed referral to pelvic floor physical therapy if she would desire this. She declines at this time. Alejandro Goss APRN.CNM documented in this encounter [facility] 09-06-2021 Miscellaneous Notes Message sent to pt Patient seen for PP visit yesterday and was prescribed Slynd OCP. Asking when she should start the pill. Currently and her menses hasn't resumed. Would you like her to start this Saturday? Meggan Costa RN documented in this encounter [facility] 09-04-2021 Instructions Alejandro Goss APRN.CNM - 09/04/2021 11:14 AM EDT The Pill control is a way for men and women to prevent . There are many different control methods. Some of these methods also protect against sexually transmitted diseases. The control pill, often referred to as the Pill, is a form of control used by women that is taken by mouth to prevent . When taken correctly, it is 98% effective. However, the Pill does not protect against sexually transmitted diseases, including HIV (the virus that causes AIDS). The male condom provides the best protection from most STDs. How does the pill work? Normally, a woman becomes when an egg released from her ovary (the organ that holds her eggs) is fertilized by a man's sperm. The fertilized egg attaches to the woman's womb (uterus), where it receives nourishment and develops into a fetus. Hormones in a woman's body control the release of the egg from the ovary and prepare the body to accept a fertilized egg. The Pill contains a small amount of man-made hormones. These hormones work with the body's natural hormones to prevent . Some forms of the Pill stop the body from releasing an egg from the ovary. Others work by making the lining of the womb too thick or too thin to accept the fertilized egg. Where can I get control pills? control pills are only available with a doctor's prescription. How are the pills packaged? You will receive a set of pills packaged in a thin case. Pill packs contain either 21 or 28 pills. Hbtbgy-aqn-xfu pill packs contain 21 active pills. Lzgwci-uopoj-rwq pill packs contain 21 active pills and seven sugar pills. The pill packs are marked with the days of the week to remind you to take a pill every day. The seven sugar pills in the 28-day-pill pack are added to remind you to start a new pill pack after 28 days. How do I take the first pill pack? Ask your doctor when you should start your pill pack. You will begin your pill pack after you have your period. If you still have your period on the day that you have been told to start your pill pack, go ahead and start the pill pack. You will get your next period about 25 days after starting the pill pack. It's best to take the pills at the same time every day. Take the pill each day either before breakfast or at bedtime. When do I start another pill pack? You will start each new pill pack on the same day of the week. For example, if you start your first pill pack on a Saturday, you will start you next pill pack on a Saturday. If you are on the 21-day pill pack, start the new pill pack 7 days after you finished the old pill pack. If you are on the 28-day pill pack, begin the new pack after taking the last pill in the old pack. Start your new pill pack as scheduled above, whether or not you get your period or are still having your period. How soon does the pill work? Your body will need about 1 to 3 months to adjust to the Pill. Use another form of control, such as condoms and foam, during the first month. After the first month, you can use only the Pill for control. What if I forget to take a pill? If you forget to take a pill, take it as soon as you remember. If you don't remember until the next day, go ahead and take two pills that day. If you forget to take your pills for two days, take two pills the day you remember and two pills the next day. You will then be back on schedule. If you miss more than two pills, wait for your next period and start a new pill pack as you did when you first started taking the Pill. Any time you forget to take a pill, you must use another form of control until you finish the pill pack. When you forget to take a pill, you increase the chance of releasing an egg from your ovary. If you miss your period and forgot to take one or more pills, get a test. If you miss two periods even though you have taken all your pills on schedule, get a test. Are there side effects associated with the Pill? Yes, although the majority are not serious. They include: Nausea Weight gain Sore or swollen breasts Small amount of blood, or spotting, between periods Pneumatic Tube Operator periods Mood changes The following side effects, easily remembered by the word ACHES, are less common but more serious. If you experience any of these, contact your doctor immediately. If you cannot reach your doctor, go to an emergency room or urgent care center for evaluation. These symptoms may indicate a serious disorder, such as liver disease, gallbladder disease, stroke, blood clots, high blood pressure, or heart disease. They include: Abdominal pain (stomach pain) Chest pain Headaches (severe) Eye problems (blurred vision) Swelling and/or aching in the legs and thighs Can any woman take the pill? The pill can be taken safely by most women, but is not recommended for women who are over the age of 35 and smoke. Non-smokers can use the Pill until menopause. You should not take the Pill if you have had: Blood clots Inflammation in the veins Serious heart or liver disease Unexplained vaginal bleeding Cancer of the breast or uterus Sickle cell anemia Be sure to inform your doctor if you have a first-degree relative (parent, brother, sister, child) who has had blood clots in the legs or lungs. Is it OK to take other drugs while taking the Pill? Some drugs can stop the Pill from working properly. Tell your doctor about all of the medicines you are taking. What are mini-pills? These are pills that contain only one hormone (progestin). How do mini-pills work? Mini-pills work by thickening the cervical mucus so the sperm can't reach the egg. The hormone in the pills also changes the lining of the uterus, so implantation of a fertilized egg can't occur. In some cases, mini-pills stop ovulation (the release of an egg). A pill is taken every day. How effective are mini-pills? If mini-pills are used consistently and correctly, they are about 95% effective. Points to keep in mind when taking the Pill: *Keep another form of control, like foam and condoms, on hand in case you forget to take a pill. *Carry your pills with you if you don't always sleep at home. *Get your pill refills soon after you start the last pill pack-don't wait until the last minute. * control pills are medication. Always inform your doctor or pharmacist that you are on the Pill. *You are less likely to forget your pills if you take them in the morning when you get up. Copyright 5059-7785 The [facility]. All rights reserved. This information is provided by the [facility] and is not intended to replace the medical advice of your doctor or health care provider. Please consult your health care provider for advice about a specific medical condition. For additional written health information, please contact the Health Information Center at the [facility] or toll-free extension [phone]. This document was last reviewed on: 2003 index#[id number] documented in this encounter [facility] 09-04-2021 History of Presen t illness Narrative VISIT Le Gracia is a 26 year old year old here for visit. Delivery Summary: Delivery information: Delivery date 07/27/2021 Delivery type Delivering clinician [place]: Name Fadi Kaufman PTB 6lb 12 oz at 34 weeks. ROS/ Recovery: Feeding: Breast feeding problems: Inadequate milk supply, working with and starting maguire cow supplements. Menses since delivery: None Menstrual pattern prior to : Irregular periods [place] since delivery: Not resumed Depression: denies symptoms of depression. 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 PAST SURGICAL HISTORY Procedure Laterality Date TOOTH EXTRACTION wisdom teeth FAMILY HISTORY Problem Relation Age of Onset other (endometrioma) Mother 2011 Hypothyroidism Mother Thyroid Cancer Father 2011; in remission No Known Problems Brother No Known Problems Brother Hypertension Maternal Grandmother Heart Maternal Grandmother Melanoma Maternal Grandfather Stroke Maternal Grandfather other (adenocarcinoma) Paternal Grandmother Heart Attack Paternal Grandfather Dementia Paternal Grandfather Social History Tobacco Use Smoking status: Never Smoker Smokeless tobacco: Never Used Vaping Use Vaping Use: Never used Substance Use Topics Alcohol use: Not Currently Comment: occasionally Drug use: Never PHYSICAL EXAMINATION: LMP 11/30/2020 BP 116/80 Wt 146 lb (66.2 kg) LMP 11/30/2020 (Exact Date) Yes BMI 25.86 kg/m GENERAL: pleasant, female in no apparent distress HEENT: Normocephalic, atraumatic, mucus membranes moist and no lesions NECK: Supple, full range of motion, no adenopathy and thyroid normal DERMATOLOGY: Normal, without lesions, non-icteric and non-hirsute BREAST: soft, non-tender, symmetric, no dominant mass, normal nipple-areolar complex, no lymphadenopathy and no nipple discharge CHEST: Normal inspiratory effort ABDOMEN: soft, non-tender and no masses. PELVIC: external genitalia normal, normal Bartholin's glands, urethra, Copperton's glands, no vulvar lesions, no cervical lesions, good vaginal support, physiologic discharge present, normal appearing perineal body and perianal region BIMANUAL: uterus normal size, shape and consistency, no adnexal masses and non-tender NEURO: alert and oriented x3,exam grossly non-focal EXTREMITIES: normal ASSESSMENT AND PLAN: 26 year old status post with normal course. Contraception plan: Oral contraceptives Follow up: Progesterone only OCP - patient will call when no longer . History of elevated BP prior to while on combined OCP. Was told white coat syndrome, but still had high BP at home (130's). Normal today. Will check BP daily for 2 weeks and send log. Will follow up in 2 months for blood pressure check. Discussed watching how she does on progestin only. If needing to restart combined OCP in the future, will monitor BP closely. No other risk factors. Patient agrees with plan. I discussed with the patient the risks, benefits, mechanism of action and alternatives to combined hormonal contraceptive use. No medical contraindications. Reviewed risk of blood clot, stroke and heart attack with hormonal contraception. Reviewed warning signs ACHES . Discussed stopping control 4 weeks prior to scheduled surgery if will be immobile. I reviewed with her the administration options and when to start. Her questions were answered and she desired to start. RTC for annual exams and PRN Per Endocrinology: After delivery, you will go back to 88 mcg orally daily Saturday through Saturday and 2 pills on Saturday. Will get thyroid studies today. Alejandro Goss APRN.CNM documented in this encounter [facility] 08-29-2021 Miscellaneous Notes Please see pts mychart message. Please advise. documented in this encounter [facility] 08-07-2021 Miscellaneous Notes [facility] paperwork completed, faxed to employer, scanned into EMR and filed in CAR INSPECTION AND REPAIR MANAGER suite. Jennifer Monge LPN [place] paperwork completed and placed on providers desk for signature. Jennifer Monge LPN' documented in this encounter [facility] 08-02-2021 History of Presen t illness Narrative Patient delivered via by Dr. Delaney on 07/27/21 at [facility]. See OB history. Barbie Vu RN documented in this encounter [facility] 07-12-2021 Miscellaneous Notes ANNETTE-S: Le Gracia is a 26 year old female who presents at 32w0d with CAMMIE: 09/06/2021, by Last Menstrual Period for a routine visit. Good FM. Denies headache, visual changes, chest pain, shortness of breath, vaginal bleeding, leakage of fluid, or dysuria. Having some heartburn, tums effective. Having sciatic pain, stretching and taking magnesium. O: See flow sheet Gen: No apparent distress Abd: Gravid, nontender S=D, 36 lb twg, cephalic ASSESSMENT/PLAN: 1. 32 weeks gestation of P: 1) PTL precautions reviewed and when to call 2) RTO in 2 weeks 3) Continues Levothyroxine as directed by endocrinology 4) Reviewed animal care worker for sciatic and stretching. Ok to continue magnesium for leg cramps. Reviewed signs of DVT Alejandro Goss APRN.CNM documented in this encounter [facility] 07-12-2021 Instructions Cordelia Cruz MA - 07/12/2021 7:59 AM EDT [email or web address] [facility], [place] [address] [email or web address] [address] [place] [id number] SIGNS AND SYMPTOMS OF LABOR 1. Contractions every 10 minutes or more often 2. Clear, pink, or brownish fluid (water) leaking from vagina 3. Feeling that baby is pushing down, pressure 4. Low, dull backache 5. Cramps that feel like a period 6. Cramps with or without diarrhea If you notice any of the above symptoms, contact our office at [phone] and ask to speak with a nurse. After hours, you can call doctors registry at [phone] OR call [facility] at [phone] and ask to have the doctor print production associate paged. If you consider this an emergency, dial or go to your nearest emergency department. NEED HELP? Are you dealing with a violent or abusive relationship? Are you a victim of rape or sexual assult? Call [facility] ([place]) 24 hour Crisis Hotline: 527.586.8732 or 260-839-1356. MANUAL Your Guide to a Healthy manual is now on-line. Visit [email or web address] to download your free copy documented in this encounter [facility] 07-03-2021 Miscellaneous Notes Requester: Pharmacy Last Endocrinology visit: 06/08/2021. Follow-up visit scheduled: No, pt aware to make f/u visit 6-8 weeks after delivery. Pending Prescriptions Disp Refills SYNTHROID 125 MCG TABLET 90 tablet 0 Sig: TAKE ONE TABLET BY MOUTH ONE TIME DAILY CARLY: Yes Thank you! Elizabeth Jewell RN documented in this encounter [facility] 06-28-2021 Miscellaneous Notes ANNETTE-S: Le Gracia is a 26 year old female who presents at 30w0d with CAMMIE:09/06/2021, by Last Menstrual Period for a routine visit. Good FM. Denies headache, visual changes, chest pain, shortness of breath, vaginal bleeding, leakage of fluid, or dysuria. Feeling well, no complaints. Some breast discomfort intermittently for last month for short shooting pain near right nipple. O: See flow sheet Gen: No apparent distress Abd: Gravid, nontender Breast: bilateral breast without mass, symmetric and non tender. Bilateral nipple with callus to nipple S=D, 29 lb TWG, cephalic ASSESSMENT/PLAN: 1. 30 weeks gestation of P: 1) PTL precautions reviewed and when to call 2) RTO in 2 weeks. 3) At this time, please continue your current dose of levothyroxine. As we discussed, we will recheck your blood work once more in your 3rd trimester and then 6-8 weeks after delivery. After delivery, you will go back to 88 mcg orally daily Saturday through Saturday and 2 pills on Saturday. 4) 3hr GTT normal 5) Reviewed nipple pain. No masses or concerns at this time. Reviewed hydration to nipples and applying gel pad to help with healing of skin. If continues further evaluation. Alejandro Goss APRN.CNM documented in this encounter [facility] 06-28-2021 Instructions Cordelia Cruz MA - 06/28/2021 7:01 AM EDT SEQUENTIAL SCREENINGS The [facility] offers sequential screenings for women who are interested in screenings for chromosomal abnormalities and certain defects during a . The sequential screen combines ultrasound and blood tests to determine the risk of chromosomal abnormalities, including Down's Syndrome (Trisomy 21) and Trisomy 18, as well as open neural tube defects including spina bifida. Ultrasound examination is performed between 11 weeks and 13 weeks gestational age. Blood tests are drawn after the ultrasound and again later in the between 15 and 21 weeks gestational age. Please let your physician know if you are interested in this testing. It will require an appointment with our document image technician. This is not an ultrasound performed by a physician in our office during a routine visit. SIGNS AND SYMPTOMS OF LABOR 1. Contractions every 10 minutes or more often 2. Clear, pink, or brownish fluid (water) leaking from vagina 3. Feeling that baby is pushing down, pressure 4. Low, dull backache 5. Cramps that feel like a period 6. Cramps with or without diarrhea If you notice any of the above symptoms, contact our office at [phone] and ask to speak with a nurse. After hours, you can call doctors registry at [phone] OR call [facility] at [phone] and ask to have the doctor print production associate paged. If you consider this an emergency, dial [phone] or go to your nearest emergency department. NEED HELP? Are you dealing with a violent or abusive relationship? Are you a victim of rape or sexual assult? Call [facility] ([facility] 24 hour Crisis Hotline: 444.607.4169 or 228-024-2291. MANUAL Your Guide to a Healthy manual is now on-line. Visit [email or web address] to download your free copy documented in this encounter [facility] 06-26-2021 Miscellaneous Notes Order signed by provider and faxed. Barbie Vu RN Breast Pump order received from [employer]. To CP to sign. Barbie Vu RN documented in this encounter [facility] 06-14-2021 Miscellaneous Notes Le Gracia is a 26 year old female who presents at 28w0d for a routine visit. Good movement. Denies headache, visual changes, chest pain, shortness of breath, vaginal bleeding, leakage of fluid, or dysuria. Feeling well, no complaints. Had phone appointment with Endocrinology last week. Size equal to dates. 26 lbs TWG Assessment/Plan 1. 28-30 weeks gestation - 1 hour GCT, CBC, and RPR today - Rh positive- O+ - TDAP today - LARC form reviewed and signed. Patient declines- Desires pill for contraception after delivery - Depression screen negative - Opioid screen negative - plan form discussed and given to patient. Patient desires unmedicated , and circumcision - PTL precautions and kick counts reviewed - RTO- 2 weeks or sooner if needed Gloria Sheikh APRN.CNM documented in this encounter [facility] 06-14-2021 History of Presen t illness Narrative Patient identified by name and date of . Le Gracia presents today for a vaccination of Tdap. Patient denies an allergy to latex: yes Patient denies a severe (life-threatening) allergy to a previous dose of Tdap, DTP, DTaP, DT or Td vaccine. Yes Patient denies history of epilepsy or neurological problems: Yes Patient is afebrile and denies being moderately or severely ill: Yes Patient denies history of Guillain-Newberry Syndrome (a severe paralytic illness): Yes Tdap Adacel injection was given without incident. See immunizations for details of immunizations administered today. VIS sheet provided: Yes Provider Gloria Sheikh CNM was present in office at time of injection. Cordelia Cruz MA documented in this encounter [facility] 06-14-2021 Instructions Cordelia Cruz MA - 06/14/2021 7:52 AM EDT SEQUENTIAL SCREENINGS The [facility] offers sequential screenings for women who are interested in screenings for chromosomal abnormalities and certain defects during a . The sequential screen combines ultrasound and blood tests to determine the risk of chromosomal abnormalities, including Down's Syndrome (Trisomy 21) and Trisomy 18, as well as open neural tube defects including spina bifida. Ultrasound examination is performed between 11 weeks and 13 weeks gestational age. Blood tests are drawn after the ultrasound and again later in the between 15 and 21 weeks gestational age. Please let your physician know if you are interested in this testing. It will require an appointment with our document image technician. This is not an ultrasound performed by a physician in our office during a routine visit. SIGNS AND SYMPTOMS OF LABOR 1. Contractions every 10 minutes or more often 2. Clear, pink, or brownish fluid (water) leaking from vagina 3. Feeling that baby is pushing down, pressure 4. Low, dull backache 5. Cramps that feel like a period 6. Cramps with or without diarrhea If you notice any of the above symptoms, contact our office at [phone] and ask to speak with a nurse. After hours, you can call doctors registry at [phone] OR call [facility] at [phone] and ask to have the doctor print production associate paged. If you consider this an emergency, dial [phone]-- or go to your nearest emergency department. NEED HELP? Are you dealing with a violent or abusive relationship? Are you a victim of rape or sexual assult? Call [facility] ([place]) 24 hour Crisis Hotline: 793.148.8325 or 015-096-5059. MANUAL Your Guide to a Healthy manual is now on-line. Visit [email or web address] to download your free copy documented in this encounter [facility] documented as of this encounter (statuses as of 09/04/2021) [facility] History of Past illness Narrative* Problem Noted Date Resolved Date Encounter for supervision of normal first in first trimester 02/07/2021 09/04/2021 Spotting in early 01/26/202108/23 Overview: 01/26/2021atient was seen January [address] Ann for spotting in . Denies any bleeding since then. Denies any pain. TKRN Patient request for diagnostic testing 09/04/2021 Overview: 01/26/2021 Patient desires nuchal ultrasound. Considering genetic carrier screening testing.Meenakshi Murray RN documented as of this encounter (statuses as of 09/07/2021) [facility] History of Past illness Narrative* Problem Noted Date Resolved Date Encounter for supervision of normal first in first trimester 02/07/2021 09/04/2021 Spotting in early 01/26/202108/23 Overview: 1Patient was seen January [address] Ann for spotting in . Denies any bleeding since then. Denies any pain. TKRN Patient request for diagnostic testing 1 09/04/2021 Overview: 01/26/2021 Patient desires nuchal ultrasound. Considering genetic carrier screening testing.Meenakshi Murray RN documented as of this encounter (statuses as of 10/24/2021) [facility]11-16-2021 History of Past illness Narrative* Problem Noted Date Resolved Date Encounter for supervision of normal first in first trimester 02/07/2021 09/04/2021 Spotting in early 01/26/202108/23 Overview: 01/26/2021atient was seen January [address] Ann for spotting in . Denies any bleeding since then. Denies any pain. TKRN Patient request for diagnostic testing 1 09/04/2021 Overview: 01/26/2021 Patient desires nuchal ultrasound. Considering genetic carrier screening testing.Meenakshi Murray RN documented as of this encounter (statuses as of 01/01/2022) [facility]11-16-2021 History of Past illness Narrative* Problem Noted Date Resolved Date Encounter for supervision of normal first in first trimester 02/07/2021 09/04/2021 Spotting in early 01/26/202108/23 Overview: 01/26/2021atient was seen January [address] Ann for spotting in . Denies any bleeding since then. Denies any pain. TKRN Patient request for diagnostic testing 1 09/04/2021 Overview: 01/26/2021 Patient desires nuchal ultrasound. Considering genetic carrier screening testing.Meenakshi Murray RN documented as of this encounter (statuses as of 02/28/2022) [facility]11-16-[facility]21 History of Past illness Narrative* Problem Noted Date Resolved Date Encounter for supervision of normal first in first trimester 02/07/2021 09/04/2021 Spotting in early 01/26/202108/23 Overview: 01/26/2021atient was seen January [address] Ann for spotting in . Denies any bleeding since then. Denies any pain. TKRN Patient request for diagnostic testing 1 09/04/2021 Overview: 01/26/2021 Patient desires nuchal ultrasound. Considering genetic carrier screening testing.Meenakshi Murray RN documented as of this encounter (statuses as of 03/09/2022) [facility]11-16-[facility]21 History of Past illness Narrative* Problem Noted Date Resolved Date Encounter for supervision of normal first in first trimester 02/07/2021 09/04/2021 Spotting in early 01/26/202108/23 Overview: 01/26/2021atient was seen January [address] Ann for spotting in . Denies any bleeding since then. Denies any pain. TKRN Patient request for diagnostic testing 09/04/2021 Overview: 01/26/2021 Patient desires nuchal ultrasound. Considering genetic carrier screening testing.Meenakshi Murray RN documented as of this encounter (statuses as of 06/07/2022) [facility] History of Past illness Narrative* Problem Noted Date Resolved Date Encounter for supervision of normal first in first trimester 02/07/2021 09/04/2021 Spotting in early 01/26/202108/23 Overview: 01/26/2021atient was seen January [address] Ann for spotting in . Denies any bleeding since then. Denies any pain. TKRN Patient request for diagnostic testing 09/04/2021 Overview: 01/26/2021 Patient desires nuchal ultrasound. Considering genetic carrier screening testing.Meenakshi Murray RN documented as of this encounter (statuses as of 06/11/2022) [facility] History of Past illness Narrative* Problem Noted Date Resolved Date Encounter for supervision of normal first in first trimester 02/07/2021 09/04/2021 Spotting in early 01/26/202108/23 Overview: 1Patient was seen January [address] Ann for spotting in . Denies any bleeding since then. Denies any pain. TKRN Patient request for diagnostic testing 09/04/2021 Overview: 01/26/2021 Patient desires nuchal ultrasound. Considering genetic carrier screening testing.Meenakshi Murray RN documented as of this encounter (statuses as of 09/27/2022) [facility] History of Past illness Narrative* Problem Noted Date Diagnosed Date Resolved Date Encounter for supervision of normal first in first trimester 02/07/2021 09/04/2021 Spotting in early 01/26/2021 09/04/2021 Overview: 01/26/2021atient was seen January [address] Ann for spotting in . Denies any bleeding since then. Denies any pain. TKRN Patient request for diagnostic testing 01/26/2021 09/04/2021 Overview: 01/26/2021 Patient desires nuchal ultrasound. Considering genetic carrier screening testing.Meenakshi Murray RN documented as of this encounter (statuses as of 10/01/2022) [facility] History of Past illness Narrative* Problem Noted Date Diagnosed Date Resolved Date Encounter for supervision of normal first in first trimester 02/07/2021 09/04/2021 Spotting in early 01/26/2021 09/04/2021 Overview: 01/26/2021atient was seen January [address] Ann for spotting in . Denies any bleeding since then. Denies any pain. TKRN Patient request for diagnostic testing 01/26/2021 09/04/2021 Overview: 01/26/2021 Patient desires nuchal ultrasound. Considering genetic carrier screening testing.Meenakshi Murray RN documented as of this encounter (statuses as of 10/05/2022) [facility]11[facility] History of Past illness Narrative* Problem Noted Date Diagnosed Date Resolved Date Encounter for supervision of normal first in first trimester 02/07/2021 09/04/2021 Spotting in early 01/26/2021 09/04/2021 Overview: 01/26/2021atient was seen January [address] Ann for spotting in . Denies any bleeding since then. Denies any pain. TKRN Patient request for diagnostic testing 01/26/2021 09/04/2021 Overview: 01/26/2021 Patient desires nuchal ultrasound. Considering genetic carrier screening testing.Meenakshi Murray RN documented as of this encounter (statuses as of 10/30/2022) [facility]11[facility] History of Past illness Narrative* Problem Noted Date Diagnosed Date Resolved Date Encounter for supervision of normal first in first trimester 02/07/2021 09/04/2021 Spotting in early 01/26/2021 09/04/2021 Overview: 01/26/2021atient was seen January [address] Ann for spotting in . Denies any bleeding since then. Denies any pain. TKRN Patient request for diagnostic testing 01/26/2021 09/04/2021 Overview: 01/26/2021 Patient desires nuchal ultrasound. Considering genetic carrier screening testing.Meenakshi Murray RN documented as of this encounter (statuses as of 10/31/2022) [facility]11[facility] History of Past illness Narrative* Problem Noted Date Diagnosed Date Resolved Date Encounter for supervision of normal first in first trimester 02/07/2021 09/04/2021 Spotting in early 01/26/2021 09/04/2021 Overview: 01/26/2021atient was seen January [address] Ann for spotting in . Denies any bleeding since then. Denies any pain. TKRN Patient request for diagnostic testing 01/26/2021 09/04/2021 Overview: 01/26/2021 Patient desires nuchal ultrasound. Considering genetic carrier screening testing.Meenakshi Murray RN documented as of this encounter (statuses as of 11/22/2022) [facility]11-16-[facility]21 History of Past illness Narrative* Problem Noted Date Diagnosed Date Resolved Date Encounter for supervision of normal first in first trimester 02/07/2021 09/04/2021 Spotting in early 01/26/2021 09/04/2021 Overview: 01/26/2021atient was seen January [address] Ann for spotting in . Denies any bleeding since then. Denies any pain. TKRN Patient request for diagnostic testing 01/26/2021 09/04/2021 Overview: 01/26/2021 Patient desires nuchal ultrasound. Considering genetic carrier screening testing.Meenakshi Murray RN documented as of this encounter (statuses as of 11/22/2022) [facility]11[facility] History of Past illness Narrative* Problem Noted Date Diagnosed Date Resolved Date Encounter for supervision of normal first in first trimester 02/07/2021 09/04/2021 Spotting in early 01/26/2021 09/04/2021 Overview: 01/26/2021atient was seen January [address] Ann for spotting in . Denies any bleeding since then. Denies any pain. TKRN Patient request for diagnostic testing 01/26/2021 09/04/2021 Overview: 01/26/2021 Patient desires nuchal ultrasound. Considering genetic carrier screening testing.Meenakshi Murray RN documented as of this encounter (statuses as of 11/22/2022) [facility]11[facility] History of Past illness Narrative* Problem Noted Date Diagnosed Date Resolved Date Encounter for supervision of normal first in first trimester 02/07/2021 09/04/2021 Spotting in early 01/26/2021 09/04/2021 Overview: 01/26/2021atient was seen January [address] Ann for spotting in . Denies any bleeding since then. Denies any pain. TKRN Patient request for diagnostic testing 01/26/2021 09/04/2021 Overview: 01/26/2021 Patient desires nuchal ultrasound. Considering genetic carrier screening testing.Meenakshi Murray RN documented as of this encounter (statuses as of 12/14/2022) [facility]11[facility]16[facility] History of Past illness Narrative* Problem Noted Date Diagnosed Date Resolved Date Encounter for supervision of normal first in first trimester 02/07/2021 09/04/2021 Spotting in early 01/26/2021 09/04/2021 Overview: 01/26/2021atient was seen January [address] Ann for spotting in . Denies any bleeding since then. Denies any pain. TKRN Patient request for diagnostic testing 01/26/2021 09/04/2021 Overview: 01/26/2021 Patient desires nuchal ultrasound. Considering genetic carrier screening testing.Meenakshi Murray RN documented as of this encounter (statuses as of 01/04/2023) [facility]11[facility] History of Past illness Narrative* Problem Noted Date Diagnosed Date Resolved Date Encounter for supervision of normal first in first trimester 02/07/2021 09/04/2021 Spotting in early 01/26/2021 09/04/2021 Overview: 01/26/2021atient was seen January [address] nAn for spotting in . Denies any bleeding since then. Denies any pain. TKRN Patient request for diagnostic testing 01/26/2021 09/04/2021 Overview: 01/26/2021 Patient desires nuchal ultrasound. Considering genetic carrier screening testing.Meenakshi Murray RN documented as of this encounter (statuses as of 01/11/2023) [facility]11[facility] History of Past illness Narrative* Problem Noted Date Diagnosed Date Resolved Date Encounter for supervision of normal first in first trimester 02/07/2021 09/04/2021 Spotting in early 01/26/2021 09/04/2021 Overview: 01/26/2021atient was seen January [address] Ann for spotting in . Denies any bleeding since then. Denies any pain. TKRN Patient request for diagnostic testing 01/26/2021 09/04/2021 Overview: 01/26/2021 Patient desires nuchal ultrasound. Considering genetic carrier screening testing.Meenakshi Murray RN documented as of this encounter (statuses as of 01/16/2023) [facility]11-16-2021 History of Past illness Narrative* Problem Noted Date Diagnosed Date Resolved Date Encounter for supervision of normal first in first trimester 02/07/2021 09/04/2021 Spotting in early 01/26/2021 09/04/2021 Overview: 01/26/2021atient was seen January [address] Ann for spotting in . Denies any bleeding since then. Denies any pain. TKRN Patient request for diagnostic testing 01/26/2021 09/04/2021 Overview: 01/26/2021 Patient desires nuchal ultrasound. Considering genetic carrier screening testing.Meenakshi Murray RN documented as of this encounter (statuses as of 01/17/2023) [facility]11-16-2021 History of Past illness Narrative* Problem Noted Date Diagnosed Date Resolved Date Encounter for supervision of normal first in first trimester 02/07/2021 09/04/2021 Spotting in early 01/26/2021 09/04/2021 Overview: 01/26/2021atient was seen January [address] Ann for spotting in . Denies any bleeding since then. Denies any pain. TKRN Patient request for diagnostic testing 01/26/2021 09/04/2021 Overview: 01/26/2021 Patient desires nuchal ultrasound. Considering genetic carrier screening testing.Meenakshi Murray RN documented as of this encounter (statuses as of 01/18/2023) [facility]11-16-[facility] History of Past illness Narrative* Problem Noted Date Diagnosed Date Resolved Date Encounter for supervision of normal first in first trimester 02/07/2021 09/04/2021 Spotting in early 01/26/2021 09/04/2021 Overview: 01/26/2021atient was seen January [address] Ann for spotting in . Denies any bleeding since then. Denies any pain. TKRN Patient request for diagnostic testing 01/26/2021 09/04/2021 Overview: 01/26/2021 Patient desires nuchal ultrasound. Considering genetic carrier screening testing.Meenakshi Murray RN documented as of this encounter (statuses as of 01/19/2023) [facility] History of Past illness Narrative* Problem Noted Date Diagnosed Date Resolved Date Encounter for supervision of normal first in first trimester 02/07/2021 09/04/2021 Spotting in early 01/26/2021 09/04/2021 Overview: 01/26/2021atient was seen January [address] Ann for spotting in . Denies any bleeding since then. Denies any pain. TKRN Patient request for diagnostic testing 01/26/2021 09/04/2021 Overview: 01/26/2021 Patient desires nuchal ultrasound. Considering genetic carrier screening testing.Meenakshi Murray RN documented as of this encounter (statuses as of 01/24/2023) [facility]11-16-[facility] History of Past illness Narrative* Problem Noted Date Diagnosed Date Resolved Date Encounter for supervision of normal first in first trimester 02/07/2021 09/04/2021 Spotting in early 01/26/2021 09/04/2021 Overview: 01/26/2021atient was seen January [address] Ann for spotting in . Denies any bleeding since then. Denies any pain. TKRN Patient request for diagnostic testing 01/26/2021 09/04/2021 Overview: 01/26/2021 Patient desires nuchal ultrasound. Considering genetic carrier screening testing.Meenakshi Murray RN documented as of this encounter (statuses as of 01/31/2023) [facility]11-16-20[facility] History of Past illness Narrative* Problem Noted Date Diagnosed Date Resolved Date Encounter for supervision of normal first in first trimester 02/07/2021 09/04/2021 Spotting in early 01/26/2021 09/04/2021 Overview: 01/26/2021atient was seen January [address] Ann for spotting in . Denies any bleeding since then. Denies any pain. TKRN Patient request for diagnostic testing 01/26/2021 09/04/2021 Overview: 01/26/2021 Patient desires nuchal ultrasound. Considering genetic carrier screening testing.Meenakshi Murray RN documented as of this encounter (statuses as of 02/01/2023) [facility] History of Past illness Narrative* Problem Noted Date Diagnosed Date Resolved Date Encounter for supervision of normal first in first trimester 02/07/2021 09/04/2021 Spotting in early 01/26/2021 09/04/2021 Overview: 01/26/2021atient was seen January [address] Ann for spotting in . Denies any bleeding since then. Denies any pain. TKRN Patient request for diagnostic testing 01/26/2021 09/04/2021 Overview: 01/26/2021 Patient desires nuchal ultrasound. Considering genetic carrier screening testing.Meenakshi Murray RN documented as of this encounter (statuses as of 02/07/2023) [facility]11[facility]16-[facility] History of Past illness Narrative* Problem Noted Date Diagnosed Date Resolved Date Encounter for supervision of normal first in first trimester 02/07/2021 09/04/2021 Spotting in early 01/26/2021 09/04/2021 Overview: 01/26/2021atient was seen January [address] Ann for spotting in . Denies any bleeding since then. Denies any pain. TKRN Patient request for diagnostic testing 01/26/2021 09/04/2021 Overview: 01/26/2021 Patient desires nuchal ultrasound. Considering genetic carrier screening testing.Meenakshi Murray RN documented as of this encounter (statuses as of 02/08/2023) [facility]11[facility]16-[facility] History of Past illness Narrative* Problem Noted Date Diagnosed Date Resolved Date Encounter for supervision of normal first in first trimester 02/07/2021 09/04/2021 Spotting in early 01/26/2021 09/04/2021 Overview: 01/26/2021atient was seen January [address] Ann for spotting in . Denies any bleeding since then. Denies any pain. TKRN Patient request for diagnostic testing 01/26/2021 09/04/2021 Overview: 01/26/2021 Patient desires nuchal ultrasound. Considering genetic carrier screening testing.Meenakshi Murray RN documented as of this encounter (statuses as of 04/30/2023) [facility]11[facility]16-[facility] History of Past illness Narrative* Problem Noted Date Diagnosed Date Resolved Date Encounter for supervision of normal first in first trimester 02/07/2021 09/04/2021 Spotting in early 01/26/2021 09/04/2021 Overview: 1Patient was seen January [address] Ann for spotting in . Denies any bleeding since then. Denies any pain. TKRN Patient request for diagnostic testing 01/26/2021 09/04/2021 Overview: 01/26/2021 Patient desires nuchal ultrasound. Considering genetic carrier screening testing.Meenakshi Murray RN documented as of this encounter (statuses as of 05/07/2023) [facility] History of Past illness Narrative* Problem Noted Date Diagnosed Date Resolved Date Encounter for supervision of normal first in first trimester 02/07/2021 09/04/2021 Spotting in early 01/26/2021 09/04/2021 Overview: 01/26/2021atient was seen January [address] Ann for spotting in . Denies any bleeding since then. Denies any pain. TKRN Patient request for diagnostic testing 01/26/2021 09/04/2021 Overview: 01/26/2021 Patient desires nuchal ultrasound. Considering genetic carrier screening testing.Meenakshi Murray RN documented as of this encounter (statuses as of 05/08/2023) [facility] History of Past illness Narrative* Problem Noted Date Diagnosed Date Resolved Date Encounter for supervision of normal first in first trimester 02/07/2021 09/04/2021 Spotting in early 01/26/2021 09/04/2021 Overview: 01/26/2021atient was seen January [address] Ann for spotting in . Denies any bleeding since then. Denies any pain. TKRN Patient request for diagnostic testing 01/26/2021 09/04/2021 Overview: 01/26/2021 Patient desires nuchal ultrasound. Considering genetic carrier screening testing.Meenakshi Murray RN documented as of this encounter (statuses as of 05/08/2023) [facility] Diagnosis 28 weeks gestation of - Primary state, incidental Need for vaccination Need for prophylactic vaccination and inoculation against unspecified single disease [facility]* Diagnosis Elevated glucose- Primary Other abnormal glucose [facility] Diagnosis 30 weeks gestation of - Primary state, incidental [facility]* Diagnosis 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 Hypothyroidism affecting in first trimester [facility] Diagnosis 32 weeks gestation of - Primary state, incidental Encounter for supervision of normal first in first trimester Supervision of normal first 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 [facility] Diagnosis Hypothyroidism affecting in third trimester- Primary 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 [facility]* Diagnosis care and examination- Primary Routine follow-up History of delivery documented in this encounter [facility] note* Diagnosis Encounter for surveillance of contraceptive pills- Primary Surveillance of previously prescribed contraceptive pill Urinary, incontinence, stress female Female stress incontinence [facility] Diagnosis Encounter for gynecological examination (general) (routine) with abnormal findings- Primary Encounter for surveillance of contraceptive pills Surveillance of previously prescribed contraceptive pill Breakthrough bleeding on control pills Metrorrhagia Encounter for gynecological examination (general) (routine) without abnormal findings documented [facility]* Diagnosis Hypothyroidism, unspecified type- Primary documented in this encounter [facility] note* Diagnosis Hypothyroidism, unspecified type [facility]* Diagnosis Unspecified hypothyroidism- Primary [facility] [place] [facility] Diagnosis Hypothyroidism, unspecified type documented in this encounter [facility] note* Diagnosis Short interval between pregnancies affecting , antepartum- Primary 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 [facility] [place] [facility] Diagnosis care in first trimester- Primary [facility] Diagnosis Supervision of other normal , antepartum- Primary 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 [facility]* Diagnosis Supervision of other normal , antepartum [facility] [place] [facility] Diagnosis 12 weeks gestation of - Primary state, incidental Supervision of other normal , antepartum documented in this encounter [facility] note* Diagnosis History of delivery- Primary Supervision of other normal , antepartum 18 weeks gestation of state, incidental [facility] [place] [facility] Diagnosis Encounter for anatomic survey- Primary Supervision of other normal , antepartum 19 weeks gestation of state, incidental History of delivery, currently with history of pre-term labor [facility] [place] [facility] Diagnosis History of delivery- Primary [facility]* Diagnosis Hx of delivery, currently , second trimester- Primary [facility] 19 weeks [facility] of - Primary state, incidental Supervision of other normal , antepartum [facility]* Diagnosis History of delivery- Primary documented in this encounter [facility] note* Diagnosis History of delivery- Primary documented in this encounter [facility] note* Diagnosis History of delivery- Primary 22 weeks gestation of state, incidental Cervical shortening, second trimester [facility] Diagnosis Hypothyroidism, unspecified type- Primary [facility]* Diagnosis Hx of delivery, currently , second trimester- Primary 23 weeks gestation of state, incidental Short interval between pregnancies affecting , antepartum documented in this [facility]* Diagnosis 35 weeks gestation of - Primary state, incidental documented in this encounter [facility]* Diagnosis Short interval between pregnancies affecting , antepartum- Primary History of delivery, currently with history of pre-term labor 36 weeks gestation of state, incidental Excessive growth affecting management of in third trimester, single or unspecified fetus documented in this encounter [facility] Narrative* MA notes reviewed * PMH reviewed * Social and family history reviewed. * Allergies reviewed * Vital signs reviewed * Patient presenting with cold/flu-like symptoms. * Concerns for COVID-19. * Symptoms include: Headache, congestion, sore throat x3 days. Patient is . No related concerns * No reported altered mental status, lightheadedness, dizziness, syncope, or visual disturbance. No reported chest pain, worsening SOB or SOB at rest. No reported trismus, or drooling. No reported lower extremity swelling, edema, erythema, or pain. * ROS: * After reviewing all body systems I have documented pertinent findings above. * All other Systems reviewed and are negative for complaint. Pertinent positive and negatives are listed in the above HPI. [facility] Work Phone: Reason for referral (narrative)* Diagnostic Procedure Only (Routine) - Pending Review Specialty Diagnoses / Procedures Referred By Contac t Referred To Contact [facility] IMAGING Diagnoses Hypothyroidism, unspecified type Procedures US THYROID/PARATHYROID US SOFT TISSUE HEAD & [place] [address] [place] [address] [facility] Referral ID Status Reason Start Date Expiration Date Visits Requested Visits Authorized [id number] Pending Review Auto-Generat ed Referral 06/07/2022 07/07/2023 1 1 [facility] for referral (narrative)* Diagnostic Procedure Only (Routine) - Authorized Specialty Diagnoses / Procedures Referred By Contac t Referred To Contact [facility] Diagnoses Supervision of other normal , antepartum Procedures NUCHAL TRANSLUCENCY WHI US NUCHAL TRANSLUCENCY 1ST GESTATION Johanna Salmon MD [address] [place] [address] [address] Referral ID Status Reason Start Date Expiration Date Visits Requested Visits Authorized [id number] Authorized Auto-Generat ed Referral 10/29/2022 10/29/2023 1 1 * Diagnostic Procedure Only (Routine) - Pending Review Specialty Diagnoses / Procedures Referred By Contac t Referred To [facility] Diagnoses Supervision of other normal , antepartum Procedures OBSTETRIC ULTRASOUND WHI US PREG UTERUS AFTER 1ST TRIMEST GESTATION Johanna Salmon MD [address] [place] [address] [address] Referral ID Status Reason Start Date Expiration Date Visits Requested Visits Authorized [id number] Pending Review Auto-Generat ed Referral 10/29/2022 10/29/2023 1 1 [facility] for referral (narrative)* Diagnostic Procedure Only (Routine) - Authorized Specialty Diagnoses / Procedures Referred By Contac t Referred To Contact [facility] Diagnoses History of delivery Procedures OBSTETRIC ULTRASOUND WHI US PREG UTERUS AFTER 1ST TRIMEST GESTATION Alejandro Goss APRN.CNM [address] [place] [address] [id number] [place] [address] Referral ID Status Reason Start Date Expiration Date Visits Requested Visits Authorized [id number] Authorized Auto-Generat ed Referral 01/16/2024 1 1 [facility] for referral (narrative)* Diagnostic Procedure Only (Routine) - Pending Review Specialty Diagnoses / Procedures Referred By Contac t Referred To Contact [facility] Diagnoses History of delivery Procedures OBSTETRIC ULTRASOUND WHI US PREG UTERUS AFTER 1ST TRIMEST GESTATION Gloria Sheikh APRN.CNM [address] [place] [address] [facility] [address] [place] [address] Referral ID Status Reason Start Date Expiration Date Visits Requested Visits Authorized [id number] Pending Review Auto-Generat ed Referral 01/23/2023 01/23/2024 1 1 [facility] for referral (narrative)* Diagnostic Procedure Only (Routine) - Pending Review Specialty Diagnoses / Procedures Referred By Contac t Referred To Contact [facility] Diagnoses History of delivery Procedures OBSTETRIC ULTRASOUND WHI US PREG UTERUS AFTER 1ST TRIMEST GESTATION Alejandro Goss APRN.CNM [address] [place] [address] [facility] [address] [place] [address] Referral ID Status Reason Start Date Expiration Date Visits Requested Visits Authorized [id number] Pending Review Auto-Generat ed Referral 2023 2024 1 1 [facility] Summary Purpose Family History No Family History Records FoundNo Family History Records FoundNo Family History Records FoundNo Family History Records Found Advance Directives No Advanced Directives Records FoundNo Advanced Directives Records FoundNo Advanced Directives Records FoundNo Advanced Directives Records Found Health Concerns Problem Noted Date Diagnosed Date [facility] - [facility] 10/29/2022 [place] - [place] 10/29/2022 Problem Noted Date Diagnosed Date [facility] - [facility] 10/29/2022 [place] 10/29/2022 Problem Noted Date Diagnosed Date [facility] - [facility] 10/29/2022 [place] - [place] 10/29/2022 Problem Noted Date Diagnosed Date [facility] - [facility] 10/29/2022 [place] - [place] 10/29/2022 Problem Noted Date Diagnosed Date [facility] - [facility] 10/29/2022 [place] - [place] 10/29/2022 Problem Noted Date Diagnosed Date [facility] - [facility] 10/29/2022 [place] - [place] 10/29/2022 Problem Noted Date Diagnosed Date [facility] - [facility] 10/29/2022 [place] - [place] 10/29/2022 Problem Noted Date Diagnosed Date [facility] - [facility] 10/29/2022 [place] - [place] 10/29/2022 Problem Noted Date Diagnosed Date [facility] - [facility] 10/29/2022 [place] - [place] 10/29/2022 Problem Noted Date Diagnosed Date [facility] - [facility] 10/29/2022 [place] - [place] 10/29/2022 Problem Noted Date Diagnosed Date [facility] - [facility] 10/29/2022 [place] - [place] 10/29/2022 Problem Noted Date Diagnosed Date [facility] - [facility] 10/29/2022 [place] - [place] 10/29/2022 Problem Noted Date Diagnosed Date [facility] - [facility] 10/29/2022 [place] - [place] 10/29/2022 Additional Source Comments INFORMATION SOURCE (unrecogn ized section and content) DATE CREATED AUTHOR AUTHOR'S ORGANIZ ATION 03/16/2021 [employer] DATE CREATED AUTHOR AUTHOR'S ORGANIZ ATION 09/30/2022 [facility] DATE CREATED AUTHOR AUTHOR'S ORGANIZ ATION 05/01/2023 [facility] Source Comments (unrecognize d section and content) In the event this informatio n is protected by the Federal Confidentiality of Alcohol and Drug Abuse Patient Records regulations: The Federal rules restrict any use of the information to criminally investigate or prosecute any alcohol or drug abuse patient.[facility] CenterIn the event this information is protected by the Federal Confidentiality of Alcohol and Drug Abuse Patient Records regulations: The Federal rules restrict any use of the information to criminally investigate or prosecute any alcohol or drug abuse patient.[facility] CenterIn the event this information is protected by the Federal Confidentiality of Alcohol and Drug Abuse Patient Records regulations: The Federal rules restrict any use of the information to criminally investigate or prosecute any alcohol or drug abuse patient.[facility] CenterIn the event this information is protected by the Federal Confidentiality of Alcohol and Drug Abuse Patient Records regulations: The Federal rules restrict any use of the information to criminally investigate or prosecute any alcohol or drug abuse patient.[facility] CenterIn the event this information is protected by the Federal Confidentiality of Alcohol and Drug Abuse Patient Records regulations: The Federal rules restrict any use of the information to criminally investigate or prosecute any alcohol or drug abuse patient.[facility] CenterIn the event this information is protected by the Federal Confidentiality of Alcohol and Drug Abuse Patient Records regulations: The Federal rules restrict any use of the information to criminally investigate or prosecute any alcohol or drug abuse patient.[facility] CenterIn the event this information is protected by the Federal Confidentiality of Alcohol and Drug Abuse Patient Records regulations: The Federal rules restrict any use of the information to criminally investigate or prosecute any alcohol or drug abuse patient.[facility] CenterIn the event this information is protected by the Federal Confidentiality of Alcohol and Drug Abuse Patient Records regulations: The Federal rules restrict any use of the information to criminally investigate or prosecute any alcohol or drug abuse patient.[facility] CenterIn the event this information is protected by the Federal Confidentiality of Alcohol and Drug Abuse Patient Records regulations: The Federal rules restrict any use of the information to criminally investigate or prosecute any alcohol or drug abuse patient.[facility] CenterIn the event this information is protected by the Federal Confidentiality of Alcohol and Drug Abuse Patient Records regulations: The Federal rules restrict any use of the information to criminally investigate or prosecute any alcohol or drug abuse patient.[facility] CenterIn the event this information is protected by the Federal Confidentiality of Alcohol and Drug Abuse Patient Records regulations: The Federal rules restrict any use of the information to criminally investigate or prosecute any alcohol or drug abuse patient.[facility] CenterIn the event this information is protected by the Federal Confidentiality of Alcohol and Drug Abuse Patient Records regulations: The Federal rules restrict any use of the information to criminally investigate or prosecute any alcohol or drug abuse patient.[facility] CenterIn the event this information is protected by the Federal Confidentiality of Alcohol and Drug Abuse Patient Records regulations: The Federal rules restrict any use of the information to criminally investigate or prosecute any alcohol or drug abuse patient.[facility] CenterIn the event this information is protected by the Federal Confidentiality of Alcohol and Drug Abuse Patient Records regulations: The Federal rules restrict any use of the information to criminally investigate or prosecute any alcohol or drug abuse patient.[facility] CenterIn the event this information is protected by the Federal Confidentiality of Alcohol and Drug Abuse Patient Records regulations: The Federal rules restrict any use of the information to criminally investigate or prosecute any alcohol or drug abuse patient.[facility] CenterIn the event this information is protected by the Federal Confidentiality of Alcohol and Drug Abuse Patient Records regulations: The Federal rules restrict any use of the information to criminally investigate or prosecute any alcohol or drug abuse patient.[facility] CenterIn the event this information is protected by the Federal Confidentiality of Alcohol and Drug Abuse Patient Records regulations: The Federal rules restrict any use of the information to criminally investigate or prosecute any alcohol or drug abuse patient.[facility] CenterIn the event this information is protected by the Federal Confidentiality of Alcohol and Drug Abuse Patient Records regulations: The Federal rules restrict any use of the information to criminally investigate or prosecute any alcohol or drug abuse patient.[facility] CenterIn the event this information is protected by the Federal Confidentiality of Alcohol and Drug Abuse Patient Records regulations: The Federal rules restrict any use of the information to criminally investigate or prosecute any alcohol or drug abuse patient.[facility] CenterIn the event this information is protected by the Federal Confidentiality of Alcohol and Drug Abuse Patient Records regulations: The Federal rules restrict any use of the information to criminally investigate or prosecute any alcohol or drug abuse patient.[facility] CenterIn the event this information is protected by the Federal Confidentiality of Alcohol and Drug Abuse Patient Records regulations: The Federal rules restrict any use of the information to criminally investigate or prosecute any alcohol or drug abuse patient.[facility] CenterIn the event this information is protected by the Federal Confidentiality of Alcohol and Drug Abuse Patient Records regulations: The Federal rules restrict any use of the information to criminally investigate or prosecute any alcohol or drug abuse patient.[facility] CenterIn the event this information is protected by the Federal Confidentiality of Alcohol and Drug Abuse Patient Records regulations: The Federal rules restrict any use of the information to criminally investigate or prosecute any alcohol or drug abuse patient.[facility] CenterIn the event this information is protected by the Federal Confidentiality of Alcohol and Drug Abuse Patient Records regulations: The Federal rules restrict any use of the information to criminally investigate or prosecute any alcohol or drug abuse patient.[facility] CenterIn the event this information is protected by the Federal Confidentiality of Alcohol and Drug Abuse Patient Records regulations: The Federal rules restrict any use of the information to criminally investigate or prosecute any alcohol or drug abuse patient.[facility] CenterIn the event this information is protected by the Federal Confidentiality of Alcohol and Drug Abuse Patient Records regulations: The Federal rules restrict any use of the information to criminally investigate or prosecute any alcohol or drug abuse patient.[facility] CenterIn the event this information is protected by the Federal Confidentiality of Alcohol and Drug Abuse Patient Records regulations: The Federal rules restrict any use of the information to criminally investigate or prosecute any alcohol or drug abuse patient.[facility] CenterIn the event this information is protected by the Federal Confidentiality of Alcohol and Drug Abuse Patient Records regulations: The Federal rules restrict any use of the information to criminally investigate or prosecute any alcohol or drug abuse patient.[facility] CenterIn the event this information is protected by the Federal Confidentiality of Alcohol and Drug Abuse Patient Records regulations: The Federal rules restrict any use of the information to criminally investigate or prosecute any alcohol or drug abuse patient.[facility] CenterIn the event this information is protected by the Federal Confidentiality of Alcohol and Drug Abuse Patient Records regulations: The Federal rules restrict any use of the information to criminally investigate or prosecute any alcohol or drug abuse patient.[facility] CenterIn the event this information is protected by the Federal Confidentiality of Alcohol and Drug Abuse Patient Records regulations: The Federal rules restrict any use of the information to criminally investigate or prosecute any alcohol or drug abuse patient.[facility] CenterIn the event this information is protected by the Federal Confidentiality of Alcohol and Drug Abuse Patient Records regulations: The Federal rules restrict any use of the information to criminally investigate or prosecute any alcohol or drug abuse patient.[facility] CenterIn the event this information is protected by the Federal Confidentiality of Alcohol and Drug Abuse Patient Records regulations: The Federal rules restrict any use of the information to criminally investigate or prosecute any alcohol or drug abuse patient.[facility] CenterIn the event this information is protected by the Federal Confidentiality of Alcohol and Drug Abuse Patient Records regulations: The Federal rules restrict any use of the information to criminally investigate or prosecute any alcohol or drug abuse patient.[facility] CenterIn the event this information is protected by the Federal Confidentiality of Alcohol and Drug Abuse Patient Records regulations: The Federal rules restrict any use of the information to criminally investigate or prosecute any alcohol or drug abuse patient.[facility] CenterIn the event this information is protected by the Federal Confidentiality of Alcohol and Drug Abuse Patient Records regulations: The Federal rules restrict any use of the information to criminally investigate or prosecute any alcohol or drug abuse patient.[facility] CenterIn the event this information is protected by the Federal Confidentiality of Alcohol and Drug Abuse Patient Records regulations: The Federal rules restrict any use of the information to criminally investigate or prosecute any alcohol or drug abuse patient.[facility] CenterIn the event this information is protected by the Federal Confidentiality of Alcohol and Drug Abuse Patient Records regulations: The Federal rules restrict any use of the information to criminally investigate or prosecute any alcohol or drug abuse patient.[facility] CenterIn the event this information is protected by the Federal Confidentiality of Alcohol and Drug Abuse Patient Records regulations: The Federal rules restrict any use of the information to criminally investigate or prosecute any alcohol or drug abuse patient.[facility] CenterIn the event this information is protected by the Federal Confidentiality of Alcohol and Drug Abuse Patient Records regulations: The Federal rules restrict any use of the information to criminally investigate or prosecute any alcohol or drug abuse patient.[facility] CenterIn the event this information is protected by the Federal Confidentiality of Alcohol and Drug Abuse Patient Records regulations: The Federal rules restrict any use of the information to criminally investigate or prosecute any alcohol or drug abuse patient.[facility] CenterIn the event this information is protected by the Federal Confidentiality of Alcohol and Drug Abuse Patient Records regulations: The Federal rules restrict any use of the information to criminally investigate or prosecute any alcohol or drug abuse patient.[facility] CenterIn the event this information is protected by the Federal Confidentiality of Alcohol and Drug Abuse Patient Records regulations: The Federal rules restrict any use of the information to criminally investigate or prosecute any alcohol or drug abuse patient.[facility] Reason for Visit (unrecogniz ed section and content) Reason Comments Breast Pump Reason Onset Date Comments Care 06/28/2021 Reason Comments Refill Request Reason Onset Date Comments Care 07/12/2021 Reason Comments Ob Delivery Note Reason Comments Care Reason Comments Patient Question Reason Comments Follow Up Reason Comments Well Woman Reason Comments Initial Consult Thyroid Problem Reason Comments Patient Update Reason Comments Care Reason Comments Care Reason Comments US Specialty Diagnoses / Procedures Referred By Contac t Referred To Contact [facility] Diagnoses Supervision of other normal , antepartum Procedures NUCHAL TRANSLUCENCY WHI US NUCHAL TRANSLUCENCY 1ST GESTATION Johanna Salmon MD [address] [id number] [facility] [place] [address] Referral ID Status Reason Start Date Expiration Date V isits Requested Visits Authorized [id number] Closed Auto-Generate d Referral 10/29/2022 10/29/2023 1 1 Reason Onset Date Comments Care 11/22/2022 Specialty Diagnoses / Procedures Referred By Contac t Referred To Contact [facility] Diagnoses Supervision of other normal , antepartum Procedures OBSTETRIC ULTRASOUND WHI US PREG UTERUS AFTER 1ST TRIMEST GESTATION Johanna Salmon MD [address] [place] [address] [facility] [place] [address] Referral ID Status Reason Start Date Expiration Date V isits Requested Visits Authorized [id number] Closed Auto-Generate d Referral 10/29/2022 10/29/2023 1 1 Specialty Diagnoses / Procedures Referred By Contac t Referred To Contact [facility] Diagnoses 16 weeks gestation of Supervision of other normal , antepartum Procedures OBSTETRIC ULTRASOUND WHI US PREG UTERUS AFTER 1ST TRIMEST GESTATION Gloria Sheikh APRN.CNM [address] [place] [address] [address] Referral ID Status Reason Start Date Expiration Date V isits Requested Visits Authorized [id number] Closed Auto-Generate d Referral 12/20/2022 12/20/2023 1 1 Reason Comments Lab Orders Reason Comments Orders Specialty Diagnoses / Procedures Referred By Contac t Referred To Contact [facility] Diagnoses History of delivery Procedures OBSTETRIC ULTRASOUND WHI US PREG UTERUS AFTER 1ST TRIMEST GESTATION Alejandro Goss APRN.CNM [address] [place] [address] [address] Referral ID Status Reason Start Date Expiration Date V isits Requested Visits Authorized [id number] Closed Auto-Generate d Referral 01/16/2023 01/16/2024 1 1 Reason Onset Date Comments Care 01/11/2023 Referral ID Status Reason Start Date Expiration Date V isits Requested Visits Authorized [id number] Closed Auto-Generate d Referral 01/31/2023 03/24/2023 1 1 Specialty Diagnoses / Procedures Referred By Contac t Referred To Contact [facility] Diagnoses 23 weeks gestation of Hx of delivery, currently , second trimester Supervision of other normal , antepartum Procedures OBSTETRIC ULTRASOUND WHI US PREG UTERUS AFTER 1ST TRIMEST GESTATION Alejandro Goss APRN.CNM [address] [place] [address] [address] Referral ID Status Reason Start Date Expiration Date V isits Requested Visits Authorized [id number] Closed Auto-Generate d Referral 02/06/2023 03/24/2023 1 1 Reason Onset Date Comments Care 04/30/2023 Reason Onset Date Comments Care 05/07/2023 FOR RECORDS PERTAINING TO PATIENTS WHO ARE OR HAVE BEEN ENROLLED IN A CHEMICAL DEPENDENCY/SUBSTANCEABUSE PROGRAM, SOME INFORMATION MAY BE OMITTED. This clinical summary was aggregated from multiple sources. Caution should be exercised in using it in the provision of clinical care. This summary normalizes information from multiple sources, and as a consequence, information in this document may materially change the coding, format and clinical context of patient data. In addition, data may be omitted in some cases. CLINICAL DECISIONS SHOULD BE BASED ON THE PRIMARY CLINICAL RECORDS. [facility], [facility]. provides no warranty or guarantee of the accuracy or completeness of information in this document.
[2023-05-09] MEDS: LACTATED RINGERS 250 ML 999 ML IV (00:45)
[2023-05-09 01:03] LABS: Absolute Lymphocyte Count 1.14 X10^3/uL (0.83-4.51); Absolute Neutrophil Count 13.6 X10^3/uL (2.0-7.7); Basophil# 0.05 X10^3/uL; Basophil% 0.3 % (0-1); Eosinophil# 0.55 X10^3/uL; Eosinophils% 3.2 % (0-5); Hematocrit 34.9 % (37-47); Hemoglobin 11.4 g/dL (12.0-15.0); Lymphocyte # 1.14 X10^3/ul (0.83-4.51); Lymphocyte % 6.7 % (19-41); Mean Corp Hgb Conc 32.7 g/dL (32-36); Mean Corpuscular Hgb 29.7 pg (27.0-32.0); Mean Corpuscular Volume 90.9 fL (81-99); Mean Platelet Vol. 10.5 fl (6.2-12.0); Monocyte# 1.31 X10^3/uL; Monocyte% 7.7 % (0-10); NRBC Flagged by Analyzer 0 % (0-5); Neutrophil # 13.64 X10^3/uL (2.7-7.7); Neutrophil % 80.3 % (47-70); Platelet Count 183 K/mm3 (150-450); RBC Distribution Width CV 13.4 % (11.6-14.6); RBC Distribution Width SD 43.9 fl (35.1-43.9); Red Blood Count 3.84 M/mm3 (4.2-5.4)
[2023-05-09] MEDS: Lactated Ringers 1,000 ML 50 ML IV (02:15)
[2023-05-09 02:38] LABS: Syphilis Antibodies Non-reactive
--- OUTSIDE RECORDS SUMMARY | 2023-05-09 02:58 | XMS RPT_ITS | CCD ---
Author Name Unknown Address [address] [place] [address] Organization [facility] Care Team Providers Care Behavioral Assistant Name Role Phone Stephanie Lynn Unavailable Unavailable [...] Amoxicillin; Translations: [Amoxicillin CAPS] Drug Allergy 1 [facility] (2 sources) Doxycycline; Translations: [doxycycline] Drug Allergy -[facility] Work Phone: (4 sources) natural latex rubber; Translations: [LATEX] Allergy to substance (finding) 1 [facility] (20 sources) avocado allergenic extract; Translations: [AVOCADO] Drug Allergy 1 [facility] (20 sources) Banana Extract; Translations: [BANANA] Drug Allergy 1 [facility] (20 sources) Latex Drug Allergy 1 [facility] (20 sources) Minocycline; Translations: [MINOCYCLINE] Drug Allergy 1 Hives [facility] (20 sources) Seasonal allergy; Translations: [SEASONAL ALLERGIES] Propensity to adverse reactions 1 Other: See Comments [facility] (20 sources) Pineapple; Translations: [PINEAPPLE] Propensity to adverse reactions to drug 1 [facility] (2 sources) Amoxicillin; Translations: [AMOXICILLIN] Drug Allergy 1 [facility] Repository Medications Current Medications Medication Drug [...] weight 79.83 kg Alejandro CARRINGTON Work Phone: [facility] 05-07-2023 14:47-0500 Diastolic blood pressure 72 mm[Hg] Alejandro Goss APRN.CNM Work Phone: [facility] 05-07-2023 14:47-0500 Systolic blood pressure 110 mm[Hg] Alejandro Goss APRN.CNM Work Phone: [facility] 04-30-2023 08:02-0500 Body weight 77.56 kg Johanne Ann MD Work Phone: [facility] 04-30-2023 08:02-0500 Diastolic blood pressure 64 mm[Hg] Johanne Ann MD Work Phone: [facility] 04-30-2023 08:02-0500 Systolic blood pressure 106 mm[Hg] Johanne Ann MD Work Phone: [facility] 01-11-2023 10:57-0400 Body weight 64.41 kg Alejandro Goss SECURITY ATTENDANT.C NM Work Phone: [facility] 01-11-2023 10:57-0400 Diastolic blood pressure 66 mm[Hg] Alejandro Goss SECURITY ATTENDANT.CNM Work Phone: [facility] 01-11-2023 10:57-0400 Systolic blood pressure 98 mm[Hg] Alejandro Goss SECURITY ATTENDANT.CNM Work Phone: [facility] 11-22-2022 10:02-0400 Body weight 62.6 kg Gloria Sheikh SECURITY ATTENDANT.CNM Work Phone: [facility] 11-22-2022 10:02-0400 Diastolic blood pressure 62 mm[Hg] Gloria Plotts SECURITY ATTENDANT.CNM Work Phone: [facility] 11-22-2022 10:02-0400 Systolic blood pressure 108 mm[Hg] Gloria Plotts SECURITY ATTENDANT.CNM Work Phone: [facility] 10-29-2022 13:14-0400 Body height 157.5 cm Johanna Salmon MD Work Phone: [facility] 10-29-2022 13:14-0400 Body weight 63.87 kg Johanna Salmon MD Work Phone: [facility] 10-29-2022 13:14-0400 Diastolic blood pressure 60 mm[Hg] Johanna Salmon MD Work Phone: [facility] 10-29-2022 13:14-0400 Systolic blood pressure 100 mm[Hg] Johanna Salmon MD Work Phone: [facility] 06-07-2022 08:10-0400 Body height 160 cm Lidia Perla i, MD Work Phone: [facility] 06-07-2022 08:10-0400 Body weight 60.33 kg Lidia Perla i, MD Work Phone: [facility] 06-07-2022 08:10-0400 Diastolic blood pressure 72 mm[Hg] Lidia Huerta MD Work Phone: [facility] 06-07-2022 08:10-0400 Heart rate 86 /min Lidia Perla i, MD Work Phone: [facility] 06-07-2022 08:10-0400 SaO2% (BldA) [Mass fraction] 99 % Lidia Huerta MD Work Phone: [facility] 06-07-2022 08:10-0400 Systolic blood pressure 106 mm[Hg] Lidia Huerta MD Work Phone: [facility] 02-28-2022 10:50-0500 Body height 161.5 cm Alejandro Goss APRN.C NM Work Phone: [facility] 02-28-2022 10:50-0500 Body weight 64.41 kg Alejandro Wolfgang PELAEZN.C NM Work Phone: [facility] 02-28-2022 10:50-0500 Diastolic blood pressure 64 mm[Hg] Alejandro Wolfgang SECURITY ATTENDANT.CNM Work Phone: [facility] 02-28-2022 10:50-0500 Systolic blood pressure 106 mm[Hg] Alejandro Wolfgang SECURITY ATTENDANT.CNM Work Phone: [facility] 10-20-2021 09:29-0400 Body weight 66.22 kg Alejandro Wolfgang SECURITY ATTENDANT.C NM Work Phone: [facility] 10-20-2021 09:29-0400 Diastolic blood pressure 78 mm[Hg] Alejandro Wolfgang SECURITY ATTENDANT.CNM Work Phone: [facility] 10-20-2021 09:29-0400 Systolic blood pressure 120 mm[Hg] Alejandro Wolfgang SECURITY ATTENDANT.CNM Work Phone: [facility] 09-04-2021 10:52-0400 Body weight 66.22 kg Alejandro Goss SECURITY ATTENDANT.C NM Work Phone: [facility] 09-04-2021 10:52-0400 Diastolic blood pressure 80 mm[Hg] Alejandro Goss SECURITY ATTENDANT.CNM Work Phone: [facility] 09-04-2021 10:52-0400 Systolic blood pressure 116 mm[Hg] Alejandro Ogss SECURITY ATTENDANT.CNM Work Phone: [facility] 07-12-2021 08:04-0400 Body weight 72.12 kg Alejandro Goss SECURITY ATTENDANT.C NM Work Phone: [facility] 07-12-2021 08:04-0400 Diastolic blood pressure 82 mm[Hg] Alejandro Goss SECURITY ATTENDANT.CNM Work Phone: [facility] 07-12-2021 08:04-0400 Systolic blood pressure 120 mm[Hg] Alejandro Goss SECURITY ATTENDANT.CNM Work Phone: [facility] 06-28-2021 07:05-0400 Body weight 68.95 kg Alejandro Goss SECURITY ATTENDANT.C NM Work Phone: [facility] 06-28-2021 07:05-0400 Diastolic blood pressure 68 mm[Hg] Alejandro Goss SECURITY ATTENDANT.CNM Work Phone: [facility] 06-28-2021 07:05-0400 Systolic blood pressure 110 mm[Hg] Alejandro Goss SECURITY ATTENDANT.CNM Work Phone: [facility] 06-14-2021 08:00-0400 Body weight 67.59 kg Gloria Plotrayshawn SECURITY ATTENDANT.CNM Work Phone: [facility] 06-14-2021 08:00-0400 Diastolic blood pressure 68 mm[Hg] Gloria Plotts SECURITY ATTENDANT.CNM Work Phone: [facility] 06-14-2021 08:00-0400 Systolic blood pressure 110 mm[Hg] Gloria Plotts SECURITY ATTENDANT.CNM Work Phone: [facility] 03-15-2021 09:32-0500 Body height 157.48 cm Stephanie [...] End: 05-07-2023 Patient encounter procedure Alejandro Goss SECURITY ATTENDANT.CNM Work Phone: OB/Gynecology Procedures Date Procedure Procedure Detail Performing Clinician Start: 05-07-2023 URINE OB DIP B/O Clintssic a Wolfgang SECURITY ATTENDANT.CNM Work Phone: Start: 04-30-2023 URINE OB DIP B/O Johanne Ann MD Work Phone: Start: 02-07-2023 Us preg uterus after 1st trimest 1/1st gestation Alejandro Goss SECURITY ATTENDANT.CNM Work Phone: Start: 01-31-2023 Us preg uterus after 1st trimest /1st gestation Alejandro Goss SECURITY ATTENDANT.CNM Work Phone: Start: 01-17-2023 Us preg uterus after 1st trimest 1/1st gestation Alejandro Goss SECURITY ATTENDANT.CNM Work Phone: Start: 01-11-2023 URINE OB DIP B/O Clintssic a Wolfgang SECURITY ATTENDANT.CNM Work Phone: Start: 01-11-2023 Us preg uterus after 1st trimest /1st gestation Golria Sheikh SECURITY ATTENDANT.CNM Work Phone: Start: 01-03-2023 Us preg uterus after 1st trimest 1/1st gestation Johanna Salmon MD Work Phone: Start: 11-22-2022 Antibody screen OLE SHEIKH Plan of Treatment Date Care Activity Detail Author Start: 2035 PAP TESTING PAP TESTING [facility] Start: 03-07-2033 Urine microalbumin profile DTaP,Tdap,Td Vaccine (3 - Td or Tdap) [facility] Start: 06-15-2031 Urine microalbumin profile [facility] Start: 09-30-2025 Pap Testing Pap Testing [facility] Start: 09-30-2025 Screening for malign ant neoplasm of cervix Pap Testing [facility] Start: 10-01-2023 PAP TESTING PAP TESTING [facility] Start: 03-25-2023 Depression Assessment Depression Ass essment [facility] Start: 2023 HPV Testing HPV Testing [facility] Start: 2023 End: 01-31-2024 OBSTETRIC ULTRASOUND WHI OBSTETRIC ULTRASOUND I Anc Imaging Routine History of delivery Expected: 2023, Expires: 01/31/2024 [facility] Work Phone: Immunizations Immunization Date Immunization Notes Care Provider [facility] 03-07-2023 tetanus toxoid, redu kunal diphtheria toxoid, and acellular pertussis vaccine, adsorbed Johanne Ann MD Work Phone: [facility] 06-14-2021 tetanus toxoid, redu kunal diphtheria toxoid, and acellular pertussis vaccine, adsorbed Gloria Sheikh SECURITY ATTENDANT.CNM Work Phone: [facility] 02-07-2021 influenza, injectabl e, quadrivalent, contains preservative Gloria Sheikh SECURITY ATTENDANT.CNM Work Phone: [facility] Work Phone: 02-07-2021 influenza virus vaccine, unspecified formulation Johanna Salmon MD Work Phone: [facility] 05-10-2020 COVID-19 vaccine, fu ll dose (MODERNA) Gloria Sheikh SECURITY ATTENDANT.CNM Work Phone: [facility] 04-11-2020 COVID-19 vaccine, fu ll dose (MODERNA) Gloria Sheikh SECURITY ATTENDANT.CNM Work Phone: [facility] Payers Date Payer Category Payer Unknown [id number] 2021 Unknown 2021 Unknown [employer] PPO OOS [id number] 2021-Present [phone] [address] [place] [address] PPO [id number] 2021 Unknown [id number] Social History Date Type Detail Facility Start: 06-07-2022 End: 08-30-2022 Non-smoker Non-smoker [facility] Work Phone: Start: 09-30-2020 End: 02-28-2022 Tobacco smoking status NHIS Never smoked tobacco [facility] Start: 09-30-2020 End: 02-28-2022 Tobacco use and exposure Smokeless tobacco non-user [facility] Start: 06-14-2021 End: 05-07-2023 Alcohol intake Ex-drinker (finding) [facility] Start: 09-30-2020 History SDOH Alcohol Comment occasionally [facility] Start: 01-26-2021 Education 18 [facility] Start: 12-14-2020 [facility] Start: 1995 Sex Assigned At Female C [facility] Start: 10-10-2021 End: 10-20-2021 Exposure to SARS-CoV-2 (event) Not sure [facility] Start: 06-07-2022 End: 08-30-2022 Tobacco use panel [facility] National Score (1-10 0), lower number is lower risk 60 [facility] Start: 12-07-2020 Gender identity Identifies as female gender (finding) [facility] Start: 12-07-2020 Sexual orientation Heterosexual (renée trevino) [facility] Goals Date Patient Goal Desired Activity /State [...] Kina Frey RN documented in this encounter [facility] 05-07-2023 Miscellaneous Notes S: Le Sethi is [...] Alejandro Goss APRN.CNM documented in this encounter [facility] 05-07-2023 Instructions Harjit Lundy Cma - 05/07/2023 2:44 PM EST SEQUENTIAL SCREENINGS The [facility] offers sequential screenings for women who are [...] It will require an appointment with our patient services technician. This is not an ultrasound performed [...] the above symptoms, contact our office at [phone] and ask to speak with a nurse. After hours, you can call doctors registry at [phone] OR call [facility] at [phone] and ask to have the doctor content analyst paged. If you consider this an emergency, dial 9-1-1 or go to your nearest emergency department. NEED HELP? Are you dealing with a violent or abusive relationship? Are you a victim of rape or sexual assult? Call [facility] ([place]) 24 hour Crisis Hotline: 362.427.5908 or 559-589-2951. MANUAL Your Guide to a Healthy manual is now on-line. Visit [email or web address] [email or web address] to download your free copy documented in this encounter [facility] 04-30-2023 Miscellaneous Notes KJ - VB No. LOF No. CTXS No. Movement: present. Other c/o: No. Medication list reviewed. Physical Exam See Flow Sheet Gen: no accute distress, well appearing Abd: soft, nontender, gravid A/P 35w1d Estimated Date of Delivery: 06/03/23 Growth US next week Hypothyroid - continue synthroid PTL precautions reviewed, Kick counts reviewed. Johanne Ann MD documented in this encounter [facility] 04-30-2023 Instructions Rina Perry Ma - 04/30/2023 8:02 AM EST SEQUENTIAL SCREENINGS The [facility] offers sequential screenings for women who are [...] It will require an appointment with our patient services technician. This is not an ultrasound performed [...] the above symptoms, contact our office at [phone] and ask to speak with a nurse. After hours, you can call doctors registry at [phone] OR call [facility] at [phone] and ask to have the doctor content analyst paged. If you consider this an emergency, dial [phone] or go to your nearest emergency department. NEED HELP? Are you dealing with a violent or abusive relationship? Are you a victim of rape or sexual assult? Call [facility] ([facility] 24 hour Crisis Hotline: 703.207.1768 or 658-616-6958. MANUAL Your Guide to a Healthy manual is now on-line. Visit [email or web address] Elizabet to download your free copy documented in this encounter [facility] 04-15-2023 Note HNO ID: [id number] Author: ALEJANDRO GOSS APRN.CNM Service: ? Author Type: Solutions Executive Security Type: Progress Notes Filed: 04/15/2023 16:42 Note [...] None Interpretation: Reactive SIGNATURE: Alejandro Goss APRN.CNM [facility] 03-07-2023 Note HNO ID: [id number] Author: Harjit Lundy Cma Service: ? Author [...] severely ill: Yes Patient denies history of Guillain-Bradenton Syndrome (a severe paralytic illness): Yes Tdap Adacel injection was given without incident. See immunizations for details of immunizations administered today. VIS sheet provided: Yes Provider Gloria Sheikh APRN CNM was present in office at time of injection. Harjit Lundy Cma [facility] 02-06-2023 Miscellaneous Notes Routed to provider for review. documented in this encounter [facility] 2023 Miscellaneous Notes Order signed. Alejandro Goss APRN.CNM Please file for tomorrow's ultrasound. Kina Frey RN documented in this encounter [facility] 01-23-2023 Miscellaneous Notes Order signed. Gloria Sheikh APRN.CNM Patient has appointment for cervical length ultrasound tomorrow. Please file pended order. Mi Carter RN documented in this encounter [facility] 01-16-2023 Miscellaneous Notes Order signed. Alejandro Goss APRN.CNM Patient has cervical length ultrasound tomorrow. Please file pending order. Thank you. Meggan Costa RN documented in this encounter [facility] 01-16-2023 Miscellaneous Notes I called patient because she did not have AFP drawn at visit 01/11. Patient states she forgot and will have it done tomorrow documented in this encounter [facility] 01-11-2023 Miscellaneous Notes ANNETTE-S: Le Sethi is [...] Alejandro Goss APRN.CNM documented in this encounter [facility] 01-11-2023 Instructions Harjit Lundy Cma 01/11/2023 10:57 AM EDT SEQUENTIAL SCREENINGS The [facility] offers sequential screenings for women who are [...] It will require an appointment with our patient services technician. This is not an ultrasound performed [...] the above symptoms, contact our office at [phone] and ask to speak with a nurse. After hours, you can call doctors registry at [phone] OR call [facility] at [phone] and ask to have the doctor content analyst paged. If you consider this an emergency, dial 9--9 or go to your nearest emergency department. NEED HELP? Are you dealing with a violent or abusive relationship? Are you a victim of rape or sexual assult? Call [facility] ([place]) 24 hour Crisis Hotline: 968.128.8045 or 477-694-6773. MANUAL Your Guide to a Healthy manual is now on-line. Visit [email or web address] to download your free copy documented in this encounter [facility] 11-22-2022 Miscellaneous Notes Le Sethi is a [...] Gloria Sheikh APRN.CNM documented in this encounter [facility] 11-22-2022 Miscellaneous Notes Patient declined centering. Harjit Lundy Cma documented in this encounter [facility] 11-22-2022 Instructions Harjit Lundy Cma - 11/22/2022 9:57 AM EDT SEQUENTIAL SCREENINGS The [facility] offers sequential screenings for women who are [...] It will require an appointment with our patient services technician. This is not an ultrasound performed [...] the above symptoms, contact our office at [phone] and ask to speak with a nurse. After hours, you can call doctors registry at [phone] OR call [facility] at [phone] and ask to have the doctor content analyst paged. If you consider this an emergency, dial 9-1- or go to your nearest emergency department. NEED HELP? Are you dealing with a violent or abusive relationship? Are you a victim of rape or sexual assult? Call [facility] ([place]) 24 hour Crisis Hotline: 921.135.5575 or 030-700-8857. MANUAL Your Guide to a Healthy manual is now on-line. Visit [email or web address] nancyGuide to download your free copy documented in this encounter [facility] 10-29-2022 Note HNO ID: [id number] Author: Johanna Salmon MD Service: ? Author Type: Physician Type: Progress Notes Filed: 10/30/2022 10:04 PM Note Text: Editor Index offered: Patient declines. 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 [facility] 10-29-2022 History of Presen t illness Narrative Editor Index offered: Patient declines. 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 Discussed aneuploidy and carrier screening. Regarding aneuploidy [...] Johanna Salmon DO documented in this encounter [facility] 10-29-2022 Instructions Melvi Adams MA - 10/29/2022 1:05 PM EDT Please select the following link to access the [facility] Your Guide to a Healthy . [email or web address] documented in this encounter [facility] 10-04-2022 Note HNO ID: [id number] Author: Meenakshi Murray RN Service: ? Author [...] None, Apgar5: None, Living: None, Comments: None [facility] 10-04-2022 History of Presen t illness Narrative # 1 - Date: 07/27/21, Sex: Male, Weight: 6 lb 12 oz (3.062 kg), GA: 34w1d, Delivery: Vaginal, Spontaneous, Apgar1: 1, Apgar5: 7, Living: Living, Comments: spontaneous labor, EBL 200mL # 2 - Date: None, Sex: None, Weight: None, GA: None, Delivery: None, Apgar1: None, Apgar5: None, Living: None, Comments: None documented in this encounter [facility] 10-04-2022 Miscellaneous Notes DISTANCE HEALTH VISIT This Team Access Model visit is a phone encounter. It required patient-provider interaction for the medical decision making as documented below. Le Sethi is a 27 year old female seen for PNOB visit. Patient was diagnosed with Willa's at age 17. Her last visit in endocrinology was June 07, [address] Huerta[address] [facility]. Her last thyroid ultrasound was [...] coverage.Meenakshi Murray RN documented in this encounter [facility] 09-26-2022 Miscellaneous Notes Called pt to update that a TSH is ordered for her to obtain. No answer, the mailbox is full and cannot receive messages at this time. Sent pt the following [employer] message: Avelino Lujan. Per your Endocrine provider, it is very reassuring that your last thyroid function test was normal. She would like for you to get a TSH level drawn. The order is in and is nonfasting. If you have any questions, please call us at or send us a [employer] message. Thanks, Have a Great Day, Meggan [...] her medication. She can be reached at [phone]. Claudia Palma PSS documented in this encounter [facility] 06-07-2022 Note HNO ID: [id number] Author: Lidia Huerta MD Service: ? Author Type: Physician Type: Progress Notes Filed: 06/07/2022 8:31 AM Note Text: Endocrinology and Metabolism [place] FOLLOW UP VISIT Last visit: 06/08/2021 Chief [...] 6 months Lidia Huerta MD [facility] Endocrinology and Metabolism [place] - [facility] [phone] Medical Decision Making: Problems: Low: Stable chronic illness Data: Unique source(s) for external note(s) reviewed: 2 Unique test result(s) reviewed: 3+ Unique test(s) ordered: 3+ Risk: Moderate: Drug management (more content not included)... [facility] 06-07-2022 History of Presen t illness Narrative Endocrinology and Metabolism [place] FOLLOW UP VISIT Last visit: 06/08/2021 Chief [...] Follow up: 6 months Lidia Huerta MD [facility] Endocrinology and Metabolism [place] - [facility] [phone] Medical Decision Making: Problems: Low: Stable chronic illness Data: Unique source(s) for external note(s) reviewed: 2 Unique test result(s) reviewed: 3+ Unique test(s) ordered: 3+ Risk: Moderate: Drug management Medical Decision Making Level: 4 - Moderate documented in this encounter [facility] 03-07-2022 Miscellaneous Notes Last seen by 06/08/21 Next appointment with MD pulliam appt made [facility] 09/04/21 Date last rx given 07/31/[address] Palacios documented in this encounter [facility] 02-28-2022 History of Presen t illness Narrative Editor Index offered: Patient declines. Le is a 27 [...] L1 SAB0 IAB0 Ectopic0 Multiple0 Live Births1 Senior Housekeeper History LMP: 02/14/2022 (Exact Date), Having periods Age at Menarche: Age at First : Age at Menopause: Senior Housekeeper History Comments: Sexual Activity: Yes; Male Contraception: [...] external genitalia normal, normal Bartholin's glands, urethra, [place]'s glands, no vulvar lesions, no cervical lesions, [...] Alejandro Goss APRN.CNM documented in this encounter [facility] 01-01-2022 Miscellaneous Notes Patient notified. Meggan Costa [...] Mi Carter RN documented in this encounter [facility] 10-20-2021 Instructions Alejandro Goss APRN.CNM - 10/20/2021 9:45 AM EDT Marita, perifit or search pelvic floor flatware maker online. If no improvement can evaluate further. [...] hesitate to call. documented in this encounter [facility] 10-20-2021 History of Presen t illness Narrative [...] L1 SAB0 IAB0 Ectopic0 Multiple0 Live Births1 Senior Housekeeper History LMP: 10/18/2021, Age at Menarche: Age at First : Age at Menopause: Senior Housekeeper History Comments: Sexual Activity: Yes; Male Contraception: [...] Alejandro Goss APRN.CNM documented in this encounter [facility] 09-06-2021 Miscellaneous Notes Message sent to pt Patient seen for PP visit yesterday and was prescribed Slynd OCP. Asking when she should start the pill. Currently and her menses hasn't resumed. Would you like her to start this Saturday? Meggan Costa RN documented in this encounter [facility] 09-04-2021 Instructions Alejandro Goss APRN.CNM - 09/04/2021 [...] packs contain either 21 or 28 pills. Vihxxf-tee-fal pill packs contain 21 active pills. [id number]-[id number]-[id number] pill packs contain 21 active pills and [...] amount of blood, or spotting, between periods Supervisor Fabrication Department periods Mood changes The following side effects, [...] the morning when you get up. Copyright 0399-1271 [facility]. All rights reserved. This information is provided by the [facility] [facility] and is not intended to replace the medical advice of your doctor or health care provider. Please consult your health care provider for advice about a specific medical condition. For additional written health information, please contact the Health Information Center at the [facility] or toll-free extension [phone]. This document was last reviewed on: 2003 index#[id number] documented in this encounter [facility] 09-04-2021 History of Presen t illness Narrative VISIT Le Gracia is a 26 year old year old here for visit. Delivery Summary: Delivery information: Delivery date 07/27/2021 Delivery type Delivering clinician [place]: Name Fadi Kaufman PTB 6lb 12 oz at 34 weeks. ROS/ Recovery: Feeding: Breast feeding problems: Inadequate milk supply, working with and starting maguire cow supplements. Menses since delivery: None Menstrual pattern prior to : Irregular periods [place] since delivery: Not resumed Depression: denies symptoms [...] external genitalia normal, normal Bartholin's glands, urethra, [place]'s glands, no vulvar lesions, no cervical lesions, [...] Alejandro Goss APRN.CNM documented in this encounter [facility] 08-29-2021 Miscellaneous Notes Please see pts mychart message. Please advise. documented in this encounter [facility] 08-07-2021 Miscellaneous Notes [facility] paperwork completed, faxed to employer, scanned into EMR and filed in TRAILER STEERER suite. Jennifer Mogne LPN [place] paperwork completed and placed on providers desk for signature. Jennifer Monge LPN' documented in this encounter [facility] 08-02-2021 History of Presen t illness Narrative Patient delivered via by Dr. Delaney on 07/27/21 at [facility]. See OB history. Barbie Vu RN documented in this encounter [facility] 07-12-2021 Miscellaneous Notes ANNETTE-S: Le Gracia is [...] Levothyroxine as directed by endocrinology 4) Reviewed primary care provider for sciatic and stretching. Ok to continue magnesium for leg cramps. Reviewed signs of DVT Alejandro Goss APRN.CNM documented in this encounter [facility] 07-12-2021 Instructions Cordelia Cruz MA - 07/12/2021 7:59 AM EDT [email or web address] [email or web address], [place] [address] [email or web address]// [facility] [address] [place] [id number] SIGNS AND SYMPTOMS OF LABOR 1. Contractions every 10 minutes or more often 2. Clear, pink, or brownish fluid (water) leaking from vagina 3. Feeling that baby is pushing down, pressure 4. Low, dull backache 5. Cramps that feel like a period 6. Cramps with or without diarrhea If you notice any of the above symptoms, contact our office at [phone] and ask to speak with a nurse. After hours, you can call doctors registry at [phone] OR call [facility] at [phone] and ask to have the doctor content analyst paged. If you consider this an emergency, dial or go to your nearest emergency department. NEED HELP? Are you dealing with a violent or abusive relationship? Are you a victim of rape or sexual assult? Call [facility] ([place]) 24 hour Crisis Hotline: 405.931.4658 or 335-916-6647. MANUAL Your Guide to a Healthy manual is now on-line. Visit [email or web address] [email or web address] to download your free copy documented in this encounter [facility] 07-03-2021 Miscellaneous Notes Requester: Pharmacy Last Endocrinology visit: 06/08/2021. Follow-up visit scheduled: No, pt aware to make f/u visit 6-8 weeks after delivery. Pending Prescriptions Disp Refills SYNTHROID 125 MCG TABLET 90 tablet 0 Sig: TAKE ONE TABLET BY MOUTH ONE TIME DAILY CARLY: Yes Thank you! Elizabeth Jewell RN documented in this encounter [facility] 06-28-2021 Miscellaneous Notes ANNETTE-S: Le Gracia is [...] Alejandro Goss APRN.CNM documented in this encounter [facility] 06-28-2021 Instructions Cordelia Cruz MA - 06/28/2021 7:01 AM EDT SEQUENTIAL SCREENINGS The [facility] offers sequential screenings for women who are [...] It will require an appointment with our patient services technician. This is not an ultrasound performed [...] the above symptoms, contact our office at [phone] and ask to speak with a nurse. After hours, you can call doctors registry at [phone] OR call [facility] at [phone] and ask to have the doctor content analyst paged. If you consider this an emergency, dial [phone] or go to your nearest emergency department. NEED HELP? Are you dealing with a violent or abusive relationship? Are you a victim of rape or sexual assult? Call [facility] ([facility] 24 hour Crisis Hotline: 884.505.1587 or 625-379-4267. MANUAL Your Guide to a Healthy manual is now on-line. Visit [email or web address] [email or web address] to download your free copy documented in this encounter [facility] 06-26-2021 Miscellaneous Notes Order signed by provider and faxed. Barbie Vu RN Breast Pump order received from [employer]. To CP to sign. Barbie Vu RN documented in this encounter [facility] 06-14-2021 Miscellaneous Notes Le Gracia is a [...] Gloria Sheikh APRN.CNM documented in this encounter [facility] 06-14-2021 History of Presen t illness Narrative [...] severely ill: Yes Patient denies history of Guillain-[place] Syndrome (a severe paralytic illness): Yes Tdap Adacel injection was given without incident. See immunizations for details of immunizations administered today. VIS sheet provided: Yes Provider Gloria Sheikh CNM was present in office at time of injection. Cordelia Cruz MA documented in this encounter [facility] 06-14-2021 Instructions Cordelia Cruz MA - 06/14/2021 7:52 AM EDT SEQUENTIAL SCREENINGS The [facility] offers sequential screenings for women who are [...] It will require an appointment with our patient services technician. This is not an ultrasound performed [...] the above symptoms, contact our office at [phone] and ask to speak with a nurse. After hours, you can call doctors registry at [phone] OR call [facility] at [phone] and ask to have the doctor content analyst paged. If you consider this an emergency, dial [phone]-- or go to your nearest emergency department. NEED HELP? Are you dealing with a violent or abusive relationship? Are you a victim of rape or sexual assult? Call [facility] ([place]) 24 hour Crisis Hotline: 666.632.8500 or 506-984-5088. MANUAL Your Guide to a Healthy manual is now on-line. Visit [email or web address] [email or web address] to download your free copy documented in this encounter [facility] documented as of this encounter (statuses as of 09/04/2021) [facility] History of Past illness Narrative* Problem Noted [...] of this encounter (statuses as of 09/07/2021) [facility] History of Past illness Narrative* Problem Noted [...] of this encounter (statuses as of 10/24/2021) [facility] History of Past illness Narrative* Problem Noted [...] of this encounter (statuses as of 01/01/2022) [facility] History of Past illness Narrative* Problem Noted [...] of this encounter (statuses as of 02/28/2022) [facility] History of Past illness Narrative* Problem Noted [...] of this encounter (statuses as of 03/09/2022) [facility] of Past illness Narrative* Problem Noted [...] of this encounter (statuses as of 06/07/2022) [facility] History of Past illness Narrative* Problem Noted [...] of this encounter (statuses as of 06/11/2022) [facility] History of Past illness Narrative* Problem Noted [...] of this encounter (statuses as of 09/27/2022) [facility] History of Past illness Narrative* Problem Noted [...] of this encounter (statuses as of 10/01/2022) [facility] History of Past illness Narrative* Problem Noted [...] of this encounter (statuses as of 10/05/2022) [facility] History of Past illness Narrative* Problem Noted [...] of this encounter (statuses as of 10/30/2022) [facility] History of Past illness Narrative* Problem Noted [...] of this encounter (statuses as of 10/31/2022) [facility] History of Past illness Narrative* Problem Noted [...] of this encounter (statuses as of 11/22/2022) [facility] of Past illness Narrative* Problem Noted [...] of this encounter (statuses as of 11/22/2022) [facility] of Past illness Narrative* Problem Noted [...] of this encounter (statuses as of 11/22/2022) [facility] of Past illness Narrative* Problem Noted [...] of this encounter (statuses as of 12/14/2022) [facility] of Past illness Narrative* Problem Noted [...] of this encounter (statuses as of 01/04/2023) [facility] of Past illness Narrative* Problem Noted [...] of this encounter (statuses as of 01/11/2023) [facility] of Past illness Narrative* Problem Noted [...] of this encounter (statuses as of 01/16/2023) [facility] of Past illness Narrative* Problem Noted [...] of this encounter (statuses as of 01/17/2023) [facility] of Past illness Narrative* Problem Noted [...] of this encounter (statuses as of 01/18/2023) [facility] of Past illness Narrative* Problem Noted [...] of this encounter (statuses as of 01/19/2023) [facility] of Past illness Narrative* Problem Noted [...] of this encounter (statuses as of 01/24/2023) [facility] of Past illness Narrative* Problem Noted [...] of this encounter (statuses as of 01/31/2023) [facility] of Past illness Narrative* Problem Noted [...] of this encounter (statuses as of 02/01/2023) [facility] of Past illness Narrative* Problem Noted [...] of this encounter (statuses as of 02/07/2023) [facility] of Past illness Narrative* Problem Noted [...] of this encounter (statuses as of 02/08/2023) [facility] of Past illness Narrative* Problem Noted [...] of this encounter (statuses as of 04/30/2023) [facility] of Past illness Narrative* Problem Noted [...] of this encounter (statuses as of 05/07/2023) [facility] of Past illness Narrative* Problem Noted [...] of this encounter (statuses as of 05/08/2023) [facility] of Past illness Narrative* Problem Noted [...] desires nuchal ultrasound. Considering genetic carrier screening testing.Meenaksih Murray RN documented as of this encounter (statuses as of 05/08/2023) [facility] Diagnosis 28 weeks gestation of - Primary state, incidental Need for vaccination Need for prophylactic vaccination and inoculation against unspecified single disease [facility] Diagnosis Elevated glucose- Primary Other abnormal glucose [facility]* Diagnosis 30 weeks gestation of - Primary state, incidental [facility]* Diagnosis 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 Hypothyroidism affecting in first trimester [facility]* Diagnosis 32 weeks gestation of - Primary state, incidental Encounter for supervision of normal first in first trimester Supervision of normal first 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 [facility]* Diagnosis Hypothyroidism affecting in third trimester- Primary 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 [facility]* Diagnosis care and examination- Primary Routine follow-up History of delivery documented in this encounter [facility] note* Diagnosis Encounter for surveillance of contraceptive pills- Primary Surveillance of previously prescribed contraceptive pill Urinary, incontinence, stress female Female stress incontinence [facility] Diagnosis Encounter for gynecological examination (general) (routine) with abnormal findings- Primary Encounter for surveillance of contraceptive pills Surveillance of previously prescribed contraceptive pill Breakthrough bleeding on control pills Metrorrhagia Encounter for gynecological examination (general) (routine) without abnormal findings [facility]* Diagnosis Hypothyroidism, unspecified type- Primary documented in this encounter [facility] note* Diagnosis Hypothyroidism, unspecified type [facility]* Diagnosis Unspecified hypothyroidism- Primary [facility]* Diagnosis Hypothyroidism, unspecified type documented in this encounter [facility] note* Diagnosis Short interval between pregnancies affecting , antepartum- Primary 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 [facility]* Diagnosis care in first trimester- Primary [facility]* Diagnosis Supervision of other normal , antepartum- Primary 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 [facility]* Diagnosis Supervision of other normal , antepartum [facility]* Diagnosis 12 weeks gestation of - Primary state, incidental Supervision of other normal , antepartum documented in this encounter [facility] note* Diagnosis History of delivery- Primary Supervision of other normal , antepartum 18 weeks gestation of state, incidental [facility]* Diagnosis Encounter for anatomic survey- Primary Supervision of other normal , antepartum 19 weeks gestation of state, incidental History of delivery, currently with history of pre-term labor [facility]* Diagnosis History of delivery- Primary [facility]* Diagnosis Hx of delivery, currently , second trimester- Primary [facility] of delivery [facility] Diagnosis 19 weeks gestation of - Primary state, incidental Supervision of other normal , antepartum [facility] Diagnosis History of delivery- Primary documented in this encounter [facility] note* Diagnosis History of delivery- Primary documented in this encounter [facility] note* Diagnosis History of delivery- Primary 22 weeks gestation of state, incidental Cervical shortening, second trimester [facility] Diagnosis Hypothyroidism, unspecified type- Primary [facility]* Diagnosis Hx of delivery, currently , second trimester- Primary 23 weeks gestation of state, incidental Short interval between pregnancies affecting , antepartum [facility]* Diagnosis 35 weeks gestation of - Primary state, incidental [facility]* Diagnosis Short interval between pregnancies affecting , antepartum- Primary History of delivery, currently with history of pre-term labor 36 weeks gestation of state, incidental Excessive growth affecting management of in third trimester, single or unspecified fetus [facility] N[facility]* MA notes reviewed [...] [place] [address] [place] [address] Us Imaging Referral ID Status Reason Start Date Expiration Date Visits Requested Visits Authorized [id number] Pending Review Auto-Generat ed Referral 06/07/2022 07/07/2023 1 1 [facility] for referral (narrative)* Diagnostic Procedure Only (Routine) - Authorized Specialty Diagnoses / Procedures Referred By Contac t Referred To Contact [facility] Diagnoses Supervision of other normal , antepartum Procedures NUCHAL TRANSLUCENCY WHI US NUCHAL TRANSLUCENCY 1ST GESTATION Johanna Salmon MD [address] [place] [address] [address] Referral ID Status Reason Start Date Expiration Date Visits Requested Visits Authorized [id number] Authorized Auto-Generat ed Referral 10/29/2022 10/29/2023 1 1 * Diagnostic Procedure Only (Routine) - Pending Review Specialty Diagnoses / Procedures Referred By Contac t Referred To [facility] Diagnoses Supervision of other normal , antepartum Procedures OBSTETRIC ULTRASOUND WHI US PREG UTERUS AFTER 1ST TRIMEST GESTATION Johanna Salmon MD [address] [place] [address] [address] Referral ID Status Reason Start Date Expiration Date Visits Requested Visits Authorized [id number] Pending Review Auto-Generat ed Referral 10/29/2022 10/29/2023 1 1 [facility] for referral (narrative)* Diagnostic Procedure Only (Routine) - Authorized Specialty Diagnoses / Procedures Referred By Contac t Referred To Contact [facility] Diagnoses History of delivery Procedures OBSTETRIC ULTRASOUND WHI US PREG UTERUS AFTER 1ST TRIMEST GESTATION Alejandro Goss APRN.CNM [address] [place] [address] [id number] [place] [address] Referral ID Status Reason Start Date Expiration Date Visits Requested Visits Authorized [id number] Authorized Auto-Generat ed Referral 01/16/2024 1 1 [facility] for referral (narrative)* Diagnostic Procedure Only (Routine) - Pending Review Specialty Diagnoses / Procedures Referred By Contac t Referred To Contact [facility] Diagnoses History of delivery Procedures OBSTETRIC ULTRASOUND WHI US PREG UTERUS AFTER 1ST TRIMEST GESTATION Gloria Sheikh APRN.CNM [address] [place] [address] [facility] [address] [place] [address] Referral ID Status Reason Start Date Expiration Date Visits Requested Visits Authorized [id number] Pending Review Auto-Generat ed Referral 01/23/2023 01/23/2024 1 1 [facility] for referral (narrative)* Diagnostic Procedure Only (Routine) - Pending Review Specialty Diagnoses / Procedures Referred By Contac t Referred To Contact [facility] Diagnoses History of delivery Procedures OBSTETRIC ULTRASOUND WHI US PREG UTERUS AFTER 1ST TRIMEST GESTATION Alejandro Goss APRN.CNM [address] [place] [address] [facility] [address] [place] [address] Referral ID Status Reason Start Date Expiration Date Visits Requested Visits Authorized [id number] Pending Review Auto-Generat ed Referral 2023 2024 1 1 [facility] Summary Purpose Family History No Family History Records FoundNo Family History Records FoundNo Family History Records FoundNo Family History Records Found Advance Directives No Advanced Directives Records FoundNo Advanced Directives Records FoundNo Advanced Directives Records FoundNo Advanced Directives Records Found Health Concerns Problem Noted Date Diagnosed Date [facility] - [place] 10/29/2022 [place] 10/29/2022 Problem Noted Date Diagnosed Date [facility] - [facility] 10/29/2022 [place] 10/29/2022 Problem Noted Date Diagnosed Date [facility] - [facility] 10/29/2022 [place] 10/29/2022 Problem Noted Date Diagnosed Date [facility] - [facility] 10/29/2022 [place] 10/29/2022 Problem Noted Date Diagnosed Date [facility] - [facility] 10/29/2022 [place] 10/29/2022 Problem Noted Date Diagnosed Date [facility] - [facility] 10/29/2022 [place] - [place] 10/29/2022 Problem Noted Date Diagnosed Date [facility] - [facility] 10/29/2022 [place] 10/29/2022 Problem Noted Date Diagnosed Date [facility] - [facility] 10/29/2022 [place] - [place] 10/29/2022 Problem Noted Date Diagnosed Date [facility] - [facility] 10/29/2022 [place] - [place] 10/29/2022 Problem Noted Date Diagnosed Date [facility] - [facility] 10/29/2022 [place] - [place] 10/29/2022 Problem Noted Date Diagnosed Date [facility] - [facility] 10/29/2022 [place] - [place] 10/29/2022 Problem Noted Date Diagnosed Date [facility] - [facility] 10/29/2022 [place] - [place] 10/29/2022 Problem Noted Date Diagnosed Date [facility] - [facility] 10/29/2022 [place] 10/29/2022 Additional Source Comments INFORMATION SOURCE (unrecogn ized section and content) DATE CREATED AUTHOR AUTHOR'S ORGANIZ ATION 03/16/2021 [employer] DATE CREATED AUTHOR AUTHOR'S ORGANIZ ATION 09/30/2022 [facility] DATE CREATED AUTHOR AUTHOR'S ORGANIZ ATION 05/01/2023 [facility] Source Comments (unrecognize d section and content) In the event this informatio n is protected by the Federal Confidentiality of Alcohol and Drug Abuse Patient Records regulations: The Federal rules restrict any use of the information to criminally investigate or prosecute any alcohol or drug abuse patient.[facility] the event this information is protected by the Federal Confidentiality of Alcohol and Drug Abuse Patient Records regulations: The Federal rules restrict any use of the information to criminally investigate or prosecute any alcohol or drug abuse patient.[facility] the event this information is protected by the Federal Confidentiality of Alcohol and Drug Abuse Patient Records regulations: The Federal rules restrict any use of the information to criminally investigate or prosecute any alcohol or drug abuse patient.[facility] the event this information is protected by the Federal Confidentiality of Alcohol and Drug Abuse Patient Records regulations: The Federal rules restrict any use of the information to criminally investigate or prosecute any alcohol or drug abuse patient.[facility] the event this information is protected by the Federal Confidentiality of Alcohol and Drug Abuse Patient Records regulations: The Federal rules restrict any use of the information to criminally investigate or prosecute any alcohol or drug abuse patient.[facility] the event this information is protected by the Federal Confidentiality of Alcohol and Drug Abuse Patient Records regulations: The Federal rules restrict any use of the information to criminally investigate or prosecute any alcohol or drug abuse patient.[facility] Dayton[facility] the event this information is protected by the Federal Confidentiality of Alcohol and Drug Abuse Patient Records regulations: The Federal rules restrict any use of the information to criminally investigate or prosecute any alcohol or drug abuse patient.[facility]In the event this information is protected by the Federal Confidentiality of Alcohol and Drug Abuse Patient Records regulations: The Federal rules restrict any use of the information to criminally investigate or prosecute any alcohol or drug abuse patient.[facility] DaytonIn the event this information is protected by the Federal Confidentiality of Alcohol and Drug Abuse Patient Records regulations: The Federal rules restrict any use of the information to criminally investigate or prosecute any alcohol or drug abuse patient.[facility] DaytonIn the event this information is protected by the Federal Confidentiality of Alcohol and Drug Abuse Patient Records regulations: The Federal rules restrict any use of the information to criminally investigate or prosecute any alcohol or drug abuse patient.[facility] DaytonIn the event this information is protected by the Federal Confidentiality of Alcohol and Drug Abuse Patient Records regulations: The Federal rules restrict any use of the information to criminally investigate or prosecute any alcohol or drug abuse patient.[facility] DaytonIn the event this information is protected by the Federal Confidentiality of Alcohol and Drug Abuse Patient Records regulations: The Federal rules restrict any use of the information to criminally investigate or prosecute any alcohol or drug abuse patient.[facility] DaytonIn the event this information is protected by the Federal Confidentiality of Alcohol and Drug Abuse Patient Records regulations: The Federal rules restrict any use of the information to criminally investigate or prosecute any alcohol or drug abuse patient.[facility] DaytonIn the event this information is protected by the Federal Confidentiality of Alcohol and Drug Abuse Patient Records regulations: The Federal rules restrict any use of the information to criminally investigate or prosecute any alcohol or drug abuse patient.[facility] DaytonIn the event this information is protected by the Federal Confidentiality of Alcohol and Drug Abuse Patient Records regulations: The Federal rules restrict any use of the information to criminally investigate or prosecute any alcohol or drug abuse patient.[facility] DaytonIn the event this information is protected by the Federal Confidentiality of Alcohol and Drug Abuse Patient Records regulations: The Federal rules restrict any use of the information to criminally investigate or prosecute any alcohol or drug abuse patient.[facility] DaytonIn the event this information is protected by the Federal Confidentiality of Alcohol and Drug Abuse Patient Records regulations: The Federal rules restrict any use of the information to criminally investigate or prosecute any alcohol or drug abuse patient.[facility] DaytonIn the event this information is protected by the Federal Confidentiality of Alcohol and Drug Abuse Patient Records regulations: The Federal rules restrict any use of the information to criminally investigate or prosecute any alcohol or drug abuse patient.[facility] DaytonIn the event this information is protected by the Federal Confidentiality of Alcohol and Drug Abuse Patient Records regulations: The Federal rules restrict any use of the information to criminally investigate or prosecute any alcohol or drug abuse patient.[facility] DaytonIn the event this information is protected by the Federal Confidentiality of Alcohol and Drug Abuse Patient Records regulations: The Federal rules restrict any use of the information to criminally investigate or prosecute any alcohol or drug abuse patient.[facility] DaytonIn the event this information is protected by the Federal Confidentiality of Alcohol and Drug Abuse Patient Records regulations: The Federal rules restrict any use of the information to criminally investigate or prosecute any alcohol or drug abuse patient.[facility] DaytonIn the event this information is protected by the Federal Confidentiality of Alcohol and Drug Abuse Patient Records regulations: The Federal rules restrict any use of the information to criminally investigate or prosecute any alcohol or drug abuse patient.[facility] DaytonIn the event this information is protected by the Federal Confidentiality of Alcohol and Drug Abuse Patient Records regulations: The Federal rules restrict any use of the information to criminally investigate or prosecute any alcohol or drug abuse patient.[facility] DaytonIn the event this information is protected by the Federal Confidentiality of Alcohol and Drug Abuse Patient Records regulations: The Federal rules restrict any use of the information to criminally investigate or prosecute any alcohol or drug abuse patient.[facility] DaytonIn the event this information is protected by the Federal Confidentiality of Alcohol and Drug Abuse Patient Records regulations: The Federal rules restrict any use of the information to criminally investigate or prosecute any alcohol or drug abuse patient.[facility] DaytonIn the event this information is protected by the Federal Confidentiality of Alcohol and Drug Abuse Patient Records regulations: The Federal rules restrict any use of the information to criminally investigate or prosecute any alcohol or drug abuse patient.[facility] DaytonIn the event this information is protected by the Federal Confidentiality of Alcohol and Drug Abuse Patient Records regulations: The Federal rules restrict any use of the information to criminally investigate or prosecute any alcohol or drug abuse patient.[facility] DaytonIn the event this information is protected by the Federal Confidentiality of Alcohol and Drug Abuse Patient Records regulations: The Federal rules restrict any use of the information to criminally investigate or prosecute any alcohol or drug abuse patient.[facility] DaytonIn the event this information is protected by the Federal Confidentiality of Alcohol and Drug Abuse Patient Records regulations: The Federal rules restrict any use of the information to criminally investigate or prosecute any alcohol or drug abuse patient.[facility] DaytonIn the event this information is protected by the Federal Confidentiality of Alcohol and Drug Abuse Patient Records regulations: The Federal rules restrict any use of the information to criminally investigate or prosecute any alcohol or drug abuse patient.[facility] DaytonIn the event this information is protected by the Federal Confidentiality of Alcohol and Drug Abuse Patient Records regulations: The Federal rules restrict any use of the information to criminally investigate or prosecute any alcohol or drug abuse patient.[facility] DaytonIn the event this information is protected by the Federal Confidentiality of Alcohol and Drug Abuse Patient Records regulations: The Federal rules restrict any use of the information to criminally investigate or prosecute any alcohol or drug abuse patient.[facility] DaytonIn the event this information is protected by the Federal Confidentiality of Alcohol and Drug Abuse Patient Records regulations: The Federal rules restrict any use of the information to criminally investigate or prosecute any alcohol or drug abuse patient.[facility] DaytonIn the event this information is protected by the Federal Confidentiality of Alcohol and Drug Abuse Patient Records regulations: The Federal rules restrict any use of the information to criminally investigate or prosecute any alcohol or drug abuse patient.[facility] DaytonIn the event this information is protected by the Federal Confidentiality of Alcohol and Drug Abuse Patient Records regulations: The Federal rules restrict any use of the information to criminally investigate or prosecute any alcohol or drug abuse patient.[facility] DaytonIn the event this information is protected by the Federal Confidentiality of Alcohol and Drug Abuse Patient Records regulations: The Federal rules restrict any use of the information to criminally investigate or prosecute any alcohol or drug abuse patient.[facility] DaytonIn the event this information is protected by the Federal Confidentiality of Alcohol and Drug Abuse Patient Records regulations: The Federal rules restrict any use of the information to criminally investigate or prosecute any alcohol or drug abuse patient.[facility] DaytonIn the event this information is protected by the Federal Confidentiality of Alcohol and Drug Abuse Patient Records regulations: The Federal rules restrict any use of the information to criminally investigate or prosecute any alcohol or drug abuse patient.[facility] DaytonIn the event this information is protected by the Federal Confidentiality of Alcohol and Drug Abuse Patient Records regulations: The Federal rules restrict any use of the information to criminally investigate or prosecute any alcohol or drug abuse patient.[facility] DaytonIn the event this information is protected by the Federal Confidentiality of Alcohol and Drug Abuse Patient Records regulations: The Federal rules restrict any use of the information to criminally investigate or prosecute any alcohol or drug abuse patient.[facility] DaytonIn the event this information is protected by the Federal Confidentiality of Alcohol and Drug Abuse Patient Records regulations: The Federal rules restrict any use of the information to criminally investigate or prosecute any alcohol or drug abuse patient.[facility] DaytonIn the event this information is protected by the Federal Confidentiality of Alcohol and Drug Abuse Patient Records regulations: The Federal rules restrict any use of the information to criminally investigate or prosecute any alcohol or drug abuse patient.[facility] DaytonIn the event this information is protected by the Federal Confidentiality of Alcohol and Drug Abuse Patient Records regulations: The Federal rules restrict any use of the information to criminally investigate or prosecute any alcohol or drug abuse patient.[facility] Reason for Visit (unrecogniz ed section and [...] Referred By Contac t Referred To Contact [facility] Diagnoses Supervision of other normal , antepartum Procedures NUCHAL TRANSLUCENCY WHI US NUCHAL TRANSLUCENCY 1ST GESTATION Johanna Salmon MD [address] [id number] [facility] [place] [address] Referral ID Status Reason Start Date Expiration Date V isits Requested Visits Authorized [id number] Closed Auto-Generate d Referral 10/29/2022 10/29/2023 1 1 Reason Onset Date Comments Care 11/22/2022 Specialty Diagnoses / Procedures Referred By Contac t Referred To Contact [facility] Diagnoses Supervision of other normal , antepartum Procedures OBSTETRIC ULTRASOUND WHI US PREG UTERUS AFTER 1ST TRIMEST GESTATION Johanna Salmon MD [address] [place] [address] [facility] [place] [address] Referral ID Status Reason Start Date Expiration Date V isits Requested Visits Authorized [id number] Closed Auto-Generate d Referral 10/29/2022 10/29/2023 1 1 Specialty Diagnoses / Procedures Referred By Contac t Referred To Contact [facility] Diagnoses 16 weeks gestation of Supervision of other normal , antepartum Procedures OBSTETRIC ULTRASOUND WHI US PREG UTERUS AFTER 1ST TRIMEST GESTATION Gloria Sheikh APRN.CNM [address] [place] [address] [address] Referral ID Status Reason Start Date Expiration Date V isits Requested Visits Authorized [id number] Closed Auto-Generate d Referral 12/20/2022 12/20/2023 1 1 Reason Comments Lab Orders Reason Comments Orders Specialty Diagnoses / Procedures Referred By Contac t Referred To Contact [facility] Diagnoses History of delivery Procedures OBSTETRIC ULTRASOUND WHI US PREG UTERUS AFTER 1ST TRIMEST GESTATION Alejandro Goss APRN.CNM [address] [place] [address] [address] Referral ID Status Reason Start Date Expiration Date V isits Requested Visits Authorized [id number] Closed Auto-Generate d Referral 01/16/2023 01/16/2024 1 1 Reason Onset Date Comments Care 01/11/2023 Referral ID Status Reason Start Date Expiration Date V isits Requested Visits Authorized [id number] Closed Auto-Generate d Referral 01/31/2023 03/24/2023 1 1 Specialty Diagnoses / Procedures Referred By Contac t Referred To Contact [facility] Diagnoses 23 weeks gestation of Hx of delivery, currently , second trimester Supervision of other normal , antepartum Procedures OBSTETRIC ULTRASOUND WHI US PREG UTERUS AFTER 1ST TRIMEST GESTATION Alejandro Goss APRN.CNM [address] [place] [address] [address] Referral ID Status Reason Start Date Expiration Date V isits Requested Visits Authorized [id number] Closed Auto-Generate d Referral 02/06/2023 03/24/2023 1 [...] BE BASED ON THE PRIMARY CLINICAL RECORDS. [facility], [facility]. provides no warranty or guarantee of the accuracy or completeness of information in this document.
[2023-05-09] MEDS: Acetaminophen 500 MG Tablet PO (03:03)
--- NOTE | 2023-05-09 10:07 | PCM.HP.OB ---
HPI - General General Date of Admission: 05/09/23 Date of Service: 05/09/23 Chief Complaint: contractions HPI Narrative JOE CRISOSTOMO, is a 28 F who presents w/ diagnosis of flu a presents c/o ctxs. Observed overnight and now /0 w/ BBOW. contractions infrequent but more intense. Admitted for labor. complicated today with history of delivery at 34 weeks, hypothyroidism and short interval between pregnancies. She had an abnormal 1 hour GTT Maternal Data Information Final CAMMIE: 06/03/23 Gestational age: 36 3/7 PFSH PFS Medical History (Updated 05/09/23 @ 10:[address] 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 second trimester Willa's disease History of pre-term labor delivery Thyroid disorder Vaginal delivery Home Medications loratadine 10 mg tablet (Claritin) 10 mg PO DAILY PRN allergies 07/26/21 [History Last Taken 07/25/21] magnesium 250 mg tablet 250 mg PO DAILY muscle cramps 07/26/21 [History Last Taken 07/25/21] clyjpsod-[id number]-Os-FA 1 mg tablet 1 tab PO DAILY 07/26/21 [History Last Taken 05/08/23 20:30 1 TAB] levothyroxine 88 mcg capsule 88 mcg PO DAILY #30 caps 07/28/21 [Rx Last Taken 05/08/23 06:30 88 mcg] Allergy/AdvReac Type Severity Reaction Status Date / Time amoxicillin Allergy Hives Verified 05/09/23 00:54 latex Allergy Hives Verified 05/09/23 00:54 minocycline Allergy Hives Verified 05/09/23 00:54 Surgical History (Updated 07/26/21 @ 23:51 by Rachele Mcrae) [place] teeth removed Social History Smoking Status: Never smoker History 1 Elective abortions Hx Para 1 Spontaneous abortions Hx # Term Pregnancies Ectopic pregnancies Hx # Pregnancies Multiple births # of living children 1 ROS ROS Narrative + cough and some dyspnea due to flu sympomts Constitutional Constitutional: Denies fatigue, fever(s) or malaise Eyes Eyes: Denies change in vision ENT HEENT: Denies dizziness or headache(s) Cardiovascular Cardiovascular: Denies chest pain or lightheadedness Gastrointestinal Gastrointestinal: Denies change in bowel habits Genitourinary Genitourinary: Denies burning urination or genital lesions Integumentary Integumentary: Denies rash Neurologic Neurologic: Denies confusion, dizziness, headache(s), numbness or weakness Vital Signs Vital Signs Vital Signs: 05/09/23 00:22 05/09/23 00:23 05/09/23 00:23 Temperature Temperature Source Tympanic Pulse Rate 131 H Blood Pressure 117/82 H BP Systolic 117 BP Diastolic 82 Pulse Ox 05/09/23 00:23 05/09/23 00:22 05/09/23 01:30 Temperature 99.2 F H Temperature Source Pulse Rate Blood Pressure 118/71 BP Systolic 118 BP Diastolic 71 Pulse Ox 99 05/09/23 01:30 05/09/23 01:29 05/09/23 02:15 Temperature Temperature Source Pulse Rate 129 H 138 H Blood Pressure BP Systolic BP Diastolic Pulse Ox 96 05/09/23 02:15 05/09/23 02:28 05/09/23 02:29 Temperature Temperature Source Temporal Pulse Rate Blood Pressure 110/79 BP Systolic 110 BP Diastolic 79 Pulse Ox 97 05/09/23 02:29 05/09/23 02:28 05/09/23 02:32 Temperature 99.6 F H Temperature Source Pulse Rate 136 H 134 H Blood Pressure BP Systolic BP Diastolic Pulse Ox 05/09/23 02:32 05/09/23 02:37 05/09/23 02:37 Temperature Temperature Source Pulse Rate 132 H Blood Pressure BP Systolic BP Diastolic Pulse Ox 96 97 05/09/23 02:42 05/09/23 02:42 05/09/23 02:47 Temperature Temperature Source Pulse Rate 131 H 138 H Blood Pressure BP Systolic BP Diastolic Pulse Ox 97 05/09/23 02:47 05/09/23 02:52 05/09/23 02:52 Temperature Temperature Source Pulse Rate 128 H Blood Pressure BP Systolic BP Diastolic Pulse Ox 96 97 05/09/23 02:57 05/09/23 02:57 05/09/23 03:02 Temperature Temperature Source Pulse Rate 131 H 128 H Blood Pressure BP Systolic BP Diastolic Pulse Ox 97 05/09/23 03:02 05/09/23 03:07 05/09/23 03:07 Temperature Temperature Source Pulse Rate 136 H Blood Pressure BP Systolic BP Diastolic Pulse Ox 97 97 05/09/23 03:12 05/09/23 03:12 05/09/23 03:17 Temperature Temperature Source Pulse Rate 138 H 140 H Blood Pressure BP Systolic BP Diastolic Pulse Ox 96 05/09/23 03:17 05/09/23 03:24 05/09/23 03:24 Temperature Temperature Source Pulse Rate 129 H Blood Pressure BP Systolic BP Diastolic Pulse Ox 97 97 05/09/23 03:29 05/09/23 03:29 05/09/23 03:34 Temperature Temperature Source Pulse Rate 126 H 123 H Blood Pressure BP Systolic BP Diastolic Pulse Ox 96 05/09/23 03:34 05/09/23 03:39 05/09/23 03:39 Temperature Temperature Source Pulse Rate 122 H Blood Pressure BP Systolic BP Diastolic Pulse Ox 96 96 05/09/23 03:44 05/09/23 03:44 05/09/23 03:49 Temperature Temperature Source Pulse Rate 117 H 117 H Blood Pressure BP Systolic BP Diastolic Pulse Ox 96 05/09/23 03:49 05/09/23 03:54 05/09/23 03:54 Temperature Temperature Source Pulse Rate 118 H Blood Pressure BP Systolic BP Diastolic Pulse Ox 96 96 05/09/23 03:59 05/09/23 03:59 05/09/23 04:04 Temperature Temperature Source Pulse Rate 130 H 131 H Blood Pressure BP Systolic BP Diastolic Pulse Ox 97 05/09/23 04:04 05/09/23 04:09 05/09/23 04:09 Temperature Temperature Source Pulse Rate 128 H Blood Pressure BP Systolic BP Diastolic Pulse Ox 98 97 05/09/23 04:14 05/09/23 04:14 05/09/23 04:19 Temperature Temperature Source Pulse Rate 123 H 127 H Blood Pressure BP Systolic BP Diastolic Pulse Ox 96 05/09/23 04:19 05/09/23 04:25 05/09/23 04:25 Temperature Temperature Source Pulse Rate 123 H Blood Pressure BP Systolic BP Diastolic Pulse Ox 96 96 05/09/23 04:30 05/09/23 04:30 05/09/23 04:35 Temperature Temperature Source Pulse Rate 124 H 126 H Blood Pressure BP Systolic BP Diastolic Pulse Ox 96 05/09/23 04:35 05/09/23 04:40 05/09/23 04:40 Temperature Temperature Source Pulse Rate 127 H Blood Pressure BP Systolic BP Diastolic Pulse Ox 96 97 05/09/23 04:45 05/09/23 04:45 05/09/23 04:50 Temperature Temperature Source Pulse Rate 121 H 125 H Blood Pressure BP Systolic BP Diastolic Pulse Ox 96 05/09/23 04:50 05/09/23 04:55 05/09/23 04:55 Temperature Temperature Source Pulse Rate 123 H Blood Pressure BP Systolic BP Diastolic Pulse Ox 97 97 05/09/23 04:56 05/09/23 04:56 05/09/23 04:56 Temperature Temperature Source Pulse Rate 126 H Blood Pressure 111/68 BP Systolic 111 BP Diastolic 68 Pulse Ox 94 05/09/23 04:56 05/09/23 04:56 05/09/23 05:00 Temperature 98.6 F Temperature Source Temporal Pulse Rate 124 H Blood Pressure BP Systolic BP Diastolic Pulse Ox 05/09/23 05:00 05/09/23 05:05 05/09/23 05:05 Temperature Temperature Source Pulse Rate 121 H Blood Pressure BP Systolic BP Diastolic Pulse Ox 97 97 05/09/23 05:10 05/09/23 05:10 05/09/23 05:15 Temperature Temperature Source Pulse Rate 125 H 113 H Blood Pressure BP Systolic BP Diastolic Pulse Ox 97 05/09/23 05:15 05/09/23 05:20 05/09/23 05:20 Temperature Temperature Source Pulse Rate 112 H Blood Pressure BP Systolic BP Diastolic Pulse Ox 96 97 05/09/23 05:25 05/09/23 05:25 05/09/23 05:30 Temperature Temperature Source Pulse Rate 112 H 115 H Blood Pressure BP Systolic BP Diastolic Pulse Ox 97 05/09/23 05:30 05/09/23 05:36 05/09/23 05:36 Temperature Temperature Source Pulse Rate 111 H Blood Pressure BP Systolic BP Diastolic Pulse Ox 96 97 05/09/23 05:41 05/09/23 05:41 05/09/23 05:46 Temperature Temperature Source Pulse Rate 114 H 107 H Blood Pressure BP Systolic BP Diastolic Pulse Ox 96 05/09/23 05:46 05/09/23 05:51 05/09/23 05:51 Temperature Temperature Source Pulse Rate 112 H Blood Pressure BP Systolic BP Diastolic Pulse Ox 96 96 05/09/23 05:56 05/09/23 05:56 05/09/23 06:01 Temperature Temperature Source Pulse Rate 111 H 111 H Blood Pressure BP Systolic BP Diastolic Pulse Ox 96 05/09/23 06:01 05/09/23 06:06 05/09/23 06:06 Temperature Temperature Source Pulse Rate 108 H Blood Pressure BP Systolic BP Diastolic Pulse Ox 95 96 05/09/23 06:11 05/09/23 06:11 05/09/23 06:11 Temperature Temperature Source Temporal Pulse Rate 105 H Blood Pressure BP Systolic BP Diastolic Pulse Ox 96 05/09/23 06:11 05/09/23 06:11 05/09/23 06:11 Temperature 97.6 F L Temperature Source Pulse Rate 103 H Blood Pressure 111/68 BP Systolic 111 BP Diastolic 68 Pulse Ox 05/09/23 06:16 05/09/23 06:16 05/09/23 06:16 Temperature Temperature Source Pulse Rate 111 H 107 H Blood Pressure BP Systolic BP Diastolic Pulse Ox 95 05/09/23 06:16 05/09/23 06:21 05/09/23 06:21 Temperature Temperature Source Pulse Rate 114 H Blood Pressure BP Systolic BP Diastolic Pulse Ox 94 95 05/09/23 06:26 05/09/23 06:26 05/09/23 06:31 Temperature Temperature Source Pulse Rate 113 H 107 H Blood Pressure BP Systolic BP Diastolic Pulse Ox 95 05/09/23 06:31 05/09/23 06:36 05/09/23 06:36 Temperature Temperature Source Pulse Rate 108 H Blood Pressure BP Systolic BP Diastolic Pulse Ox 95 95 05/09/23 06:41 05/09/23 06:41 05/09/23 06:46 Temperature Temperature Source Pulse Rate 106 H 108 H Blood Pressure BP Systolic BP Diastolic Pulse Ox 95 05/09/23 06:46 05/09/23 06:51 05/09/23 06:51 Temperature Temperature Source Pulse Rate 111 H Blood Pressure BP Systolic BP Diastolic Pulse Ox 95 95 05/09/23 06:55 05/09/23 06:55 05/09/23 06:56 Temperature Temperature Source Pulse Rate 109 H 111 H Blood Pressure BP Systolic BP Diastolic Pulse Ox 93 05/09/23 06:56 05/09/23 07:01 05/09/23 07:01 Temperature Temperature Source Pulse Rate 108 H Blood Pressure BP Systolic BP Diastolic Pulse Ox 97 96 05/09/23 07:06 05/09/23 07:06 05/09/23 07:11 Temperature Temperature Source Pulse Rate 117 H 108 H Blood Pressure BP Systolic BP Diastolic Pulse Ox 97 05/09/23 07:11 05/09/23 07:16 05/09/23 07:16 Temperature Temperature Source Pulse Rate 114 H Blood Pressure BP Systolic BP Diastolic Pulse Ox 97 96 05/09/23 07:21 05/09/23 07:21 05/09/23 07:26 Temperature Temperature Source Pulse Rate 105 H 104 H Blood Pressure BP Systolic BP Diastolic Pulse Ox 96 05/09/23 07:26 05/09/23 07:31 05/09/23 07:31 Temperature Temperature Source Pulse Rate 111 H Blood Pressure 109/67 BP Systolic 109 BP Diastolic 67 Pulse Ox 97 05/09/23 07:31 05/09/23 07:36 05/09/23 07:36 Temperature Temperature Source Pulse Rate 109 H Blood Pressure BP Systolic BP Diastolic Pulse Ox 97 97 05/09/23 07:41 05/09/23 07:41 Temperature Temperature Source Pulse Rate 110 H Blood Pressure BP Systolic BP Diastolic Pulse Ox 98 Weight Weight: 78.982 kg Body Mass Index (BMI) 30.8 Physical Exam Const alert and no apparent distress General Appearance: cooperative HEENT normocephalic Cardio regular rate GI soft to palpation GI Narrative: gravid, nontender, appropriate for gestational age Extremity no calf tenderness General Extremity: edema Skin no wounds Rashes: No rashes noted Psych activity/motor behavior normal Labs Labs Labs: Blood Type O POSITIVE Antibody Screen NEGATIVE Hct 34.9 % (37-47) L Hgb 11.4 g/dL (12.0-15.0) L Syphilis Total Ab Non-reactive Group B Strep DNA Negative (Negative) Rhogam given: No Assessment & Plan (1) labor: PLAN: Admit for active labor. Estimated weight is less than 4500 g clinically and pelvis clinically adequate to expect vaginal delivery. May use routine pain control measures as needed. (2) Influenza A: (3) 36 weeks gestation of :
[2023-05-09] MEDS: Oxytocin 15 Units/NS 250ml 15 UNITS/250 ML IV.SOLN 83 UNITS IV (10:35)
--- NOTE | 2023-05-09 10:42 | EX.PCM.OBRPT ---
Assessment & Plan (1) 36 weeks gestation of : (2) Delivery outcome of single liveborn infant: Maternal Data Information Final CAMMIE: 06/03/23 Gestational age: 36 3/7 Vaginal Delivery Maternal Presentation Maternal Presentation: Active Labor Operative Information Date of Procedure: 05/09/23 Pre-Operative Diagnosis: labor Post-Operative Diagnosis: labor Type of Anesthesia: Local with 1% Lidocaine (15 cc) Drain: - (none) Estimated Blood Loss: 300 Time of Delivery: 10:22 Findings Description of Procedure: A vigorous male infant was delivered AILA over a small second-degree perineal laceration. The remainder the was delivered with maternal pushing and gentle traction only in less than 15 seconds. The Pitocin infusion was initiated for active management of the third stage. The cord was clamped and cut after cord pulsations ceased. The was attended to by the waiting nursing staff. The placenta was delivered spontaneously and intact. The cervix and vagina were intact. The second-degree perineal laceration was repaired with 2-0 Vicryl suture in a running standard fashion. Sponge and needle counts were correct. A vaginal sweep was completed by me. Presentation: ALIA Amniotic Membrane Rupture Type: Spontaneous Amniotic Fluid Description: Clear Placental Delivery Description: Spontaneous Placenta Disposition: [facility] Cord Vessel Description: 3 Vessels Cord Entanglement: None Infant A Gender: Male (1 minute): 8 (5 minute): 9 Delayed Cord Clamping: Yes Post Vaginal Delivery Medications Given After Delivery: IM Pitocin Episiotomy Description: None Laceration: 2nd degree Complication Complications: None Admit VTE Documentation VTE Present on Admission: Yes VTE Pharm Prophylaxis Ordered: No
[2023-05-09] MEDS: Oxytocin 10 UNITS/ML Vial IM (11:49)
[2023-05-09] MEDS: Acetaminophen 500 MG Tablet 1000 MG PO ×2 (14:55→23:11)
[2023-05-10] VITALS (7 sets, daily range): BP systolic 103–109; BP diastolic 62–78; PULSE 96–104; RESP 16; TEMP 36.2–36.8; O2SAT 98
[2023-05-10] MEDS: Levothyroxine 88 MCG Tablet PO (06:54)
[2023-05-10 07:07] LABS: Absolute Lymphocyte Count 2.63 X10^3/uL (0.83-4.51); Absolute Neutrophil Count 13.6 X10^3/uL (2.0-7.7); Basophil# 0.04 X10^3/uL; Basophil% 0.2 % (0-1); Eosinophil# 0.02 X10^3/uL; Eosinophils% 0.1 % (0-5); Hematocrit 30.8 % (37-47); Hemoglobin 10.2 g/dL (12.0-15.0); Lymphocyte # 2.63 X10^3/ul (0.83-4.51); Mean Corp Hgb Conc 33.1 g/dL (32-36); Mean Corpuscular Volume 90.6 fL (81-99); Mean Platelet Vol. 10.3 fl (6.2-12.0); Monocyte# 0.94 X10^3/uL; Monocyte% 5.4 % (0-10); NRBC Flagged by Analyzer 0.1 % (0-5); Neutrophil # 13.56 X10^3/uL (2.7-7.7); Neutrophil % 77.2 % (47-70); Platelet Count 219 K/mm3 (150-450); RBC Distribution Width CV 13.3 % (11.6-14.6); RBC Distribution Width SD 44.2 fl (35.1-43.9); White Blood Count 17.6 K/mm3 (4.4-11.0)
--- NOTE | 2023-05-10 08:20 | DS.PCM_ITS ---
Providers Date of Admission: 05/09/23 Primary Care Physician: Dr. Stephanie Lynn MD Reason For Visit: VAGINAL DELIVERY Diagnosis Discharge Diagnosis (1) 36 weeks gestation of : Status: Acute Code(s): Z3A.36 - 36 weeks gestation of (2) Delivery outcome of single liveborn : Status: Acute Code(s): Z37.0 - Single live Medications at Discharge Home Medications loratadine 10 mg tablet (Claritin) 10 mg PO DAILY PRN allergies 07/26/21 magnesium 250 mg tablet 250 mg PO DAILY muscle cramps 07/26/21 [id number]-[id number]-Gb-FA 1 mg tablet 1 tab PO DAILY 07/26/21 levothyroxine 88 mcg capsule 88 mcg PO DAILY #30 caps 07/28/21 Hospital Course Operations - ( on 05/09/23) Procedures None Summary of Care Provided Minutes Spent on Discharge: 18 Hospital Course: Patient arrived on 05/08/2023 in the [facility] complaining of contractions. She been diagnosed with influenza A on 05/07/2023 and started on Tamiflu. On [facility] of early childhood of 05/09/2023 she was found to be in active labor at 36 weeks. She had a spontaneous vaginal delivery on 05/09/2023 without complications. By day #1 she was ambulating, urinating tolerating regular diet. She was discharged home with routine instructions and follow up Physical Exam Narrative Patient feel sstuffy, NO CP/SOB/lightheadedness. Feels better from her flu illness. Average lochia. Const alert and no apparent distress Narrative: Fundus firm, below umbilicus. Weight / BMI Weight Weight: 78.982 kg Body Mass Index (BMI) 30.8 ABG / Lab / Microbiology Data 05/10/23 06:45 Laboratory: Laboratory Results - last 24 hr 05/10/23 06:45: WBC 17.6 H, RBC 3.40 L, Hgb 10.2 L, Hct 30.8 L, MCV 90.6, MCH 30.0, MCHC 33.1, RDW Std Deviation 44.2 H, RDW Coeff of Deborah 13.3, Plt Count 219, MPV 10.3, Immature Gran % (Auto) 2.100 H, Neut % (Auto) 77.2 H, Lymph % (Auto) 15.0 L, Mclean % (Auto) 5.4, Eos % (Auto) 0.1, Baso % (Auto) 0.2, Absolute Neuts (auto) 13.6 H, Absolute Lymphs (auto) 2.63, Nucleated RBC % 0.1 Microbiology: Microbiology 05/09/23 00:45 Genital vaginal Group B Streptococcus (PCR) - Final D/C Instructions Discharge Diet: No restrictions May resume sexual activity in: 6 weeks Call your doctor if your incision/area has: Continuous Slow Oozing, Sudden Increased Bleeding, Foul Smelling Discharge and Swelling at the incision site Call your doctor if you observe: Fever of 101 or Higher and Inability to urinate Please Follow Up With: Gloria Santos CNM When: Follow up with our office in 1-2 and 6 weeks or as needed. call [phone] or send a [employer] message Meaningful Use Info Meaningful Use Diagnoses (Choose all that apply): None applicable Discharge Plan Admission Admit Date/Time: 05/09/23 02:53 Primary Reason for Your Visit: Vaginal delivery Attending Provider: Isa Donahue Primary Care Provider: Stephanie Lynn Discharge Orders/Prescriptions Prescriptions: Continued [id number]-acs-[id number]-FA 1 mg Tablet 1 tab PO DAILY magnesium 250 mg Tablet 250 mg PO DAILY loratadine [Claritin] 10 mg Tablet 10 mg PO DAILY PRN (Reason: allergies) levothyroxine 88 mcg capsule 88 mcg PO DAILY Qty: 30 1RF Referrals / Follow Up: Stephanie Lynn MD [Primary Care Provider] - Disposition Disposition (needs filled in before D/C Order can be placed): Home, Self Care
[2023-05-10] MEDS: Acetaminophen 500 MG Tablet 1000 MG PO (10:10)
== END 2023-05-10 14:40 | disposition home or self-care (01) | DRG 807 ==
LOC: WPOUT 02:55 → WP 02:55
PROVIDERS: Obstetrics & Gynecology; Admitting Provider Obstetrics & Gynecology; PCP Family Medicine; Visit Provider Obstetrics & Gynecology
DX: O60.14X0 Preterm labor third trimester with preterm delivery third trimester, not applicable or unspecified (principal); Z37.0 Single live birth; E06.3 Autoimmune thyroiditis; J10.1 Influenza due to other identified influenza virus with other respiratory manifestations; O70.1 Second degree perineal laceration during delivery; O99.52 Diseases of the respiratory system complicating childbirth; Z3A.36 36 weeks gestation of pregnancy; Z86.16 Personal history of COVID-19; O99.284 Endocrine, nutritional and metabolic diseases complicating childbirth
CPT/HCPCS: 59025; 59050; 85025; 86780; 86850; 86900; 86901; 87081; 87653; 99221; J7120; G0378